=== PATIENT | female | born 1960 | race Caucasian/White ===

== ENCOUNTER → 2016-08-09 | Outpatient (REF) | payer OTHER | LOC: M SFHCPLAZ 12:54 | PROVIDERS: ATTEND Family Medicine | DX: E11.9 Type 2 diabetes mellitus without complications (principal) ==

== ENCOUNTER 2016-09-16 18:30 | Emergency (ER) | payer MEDICAID, OTHER ==
[~2016-09-16] VITALS: Ht 170.2 cm; Wt 81.2 kg
[2016-09-16] MEDS ORDERED: TRAD5TAB (18:43)
[2016-09-16] MEDS ORDERED: GABA-279 (18:43)
[2016-09-16] MEDS ORDERED: AMLO5TAB2 (18:43)
[2016-09-16] MEDS ORDERED: RIZA10TA4 (18:43)
[2016-09-16] MEDS ORDERED: CYCL10TA (18:43)
[2016-09-16] MEDS ORDERED: GLYB5TA (18:43)
[2016-09-16] MEDS ORDERED: LISI-538 (18:43)
[2016-09-16] MEDS ORDERED: AMIT100TA (18:43)
[2016-09-16] MEDS ORDERED: METF1000 (18:43)
[2016-09-16] MEDS ORDERED: OMEP40CA2 (18:43)
[2016-09-16] MEDS ORDERED: LATA5OPD (18:43)
[2016-09-16] MEDS ORDERED: TOPI200T4 (18:43)
[2016-09-16] MEDS ORDERED: KETOROLAC 60 MG/2 ML VIAL (J1885) IM ONE (20:15)
[2016-09-16] MEDS ORDERED: NAPR500T PO (20:44)
[2016-09-16] MEDS ORDERED: MAGNESIUM CITRATE 300 ML BTL PO ONE (20:45)
[2016-09-16 20:57] VITALS: BP 137/74
== END 2016-09-16 20:58 | disposition home or self-care (01) ==
LOC: M ED 19:51
DX: M54.5 Low back pain (principal); K59.00 Constipation, unspecified; E11.9 Type 2 diabetes mellitus without complications; I10 Essential (primary) hypertension; F41.9 Anxiety disorder, unspecified; F33.9 Major depressive disorder, recurrent, unspecified; Z79.899 Other long term (current) drug therapy; Z79.84 Long term (current) use of oral hypoglycemic drugs
CPT/HCPCS: 96372; 99282; J1885

== ENCOUNTER → 2016-11-15 | Outpatient (CLI) | payer OTHER ==
[~2016-11-15] MED LIST: AMIT100TA; AMLO5TAB2; CYCL10TA; GABA-279; GLYB5TA; LATA5OPD; LISI-538; METF1000; NAPR500T PO; OMEP40CA2; RIZA10TA4; TOPI200T4; TRAD5TAB
[2016-11-15 13:09] LABS: BASO % 0.4 % (0.0-1.0); EOS # 0.2 K/mm3 (0.0-0.50); LARGE UNSTAINED CELL # 0.1 K/mm3 (0.0-0.4); LARGE UNSTAINED CELL % 1.2 % (0.0-4.0); LYMPH # 1.4 K/mm3 (1.5-4.5); LYMPH % 17.9 % (24.0-44.0); MEAN CORPUSCULAR HEMOGLOBIN 30.7 pg (27.0-33.0); MEAN CORPUSCULAR HGB CONC 33.9 g/dl (32.0-36.5); MEAN CORPUSCULAR VOLUME 90.6 fl (80.0-96.0); MONO # 0.4 K/mm3 (0.0-0.8); MONO % 5.7 % (0.0-5.0); NEUTROPHILS # 5.6 K/mm3 (1.8-7.7); NEUTROPHILS % 72.6 % (36.0-66.0); PLATELET COUNT, AUTOMATED 294 k/mm3 (150-450); WHITE BLOOD COUNT 7.7 K/mm3 (4.0-10.0)
[2016-11-15 13:45] LABS: ALBUMIN 3.7 GM/DL (3.2-5.2); ALBUMIN/GLOBULIN RATIO 1.19 (1.00-1.93); BILIRUBIN,TOTAL 0.3 MG/DL (0.2-1.0); CALCIUM LEVEL 8.9 MG/DL (8.5-10.1); CREATININE FOR GFR 1.11 MG/DL (0.55-1.02); GLOMERULAR FILTRATION RATE 53.9 (>51); POTASSIUM SERUM 3.9 MEQ/L (3.5-5.1); TOTAL PROTEIN 6.8 GM/DL (6.4-8.2)
== END ==
LOC: M LAB 11:12
PROVIDERS: ATTEND Internal Medicine Cardiovascular Disease
DX: I10 Essential (primary) hypertension (principal); E78.5 Hyperlipidemia, unspecified

== ENCOUNTER 2016-11-17 10:38 | Outpatient (RCR) | payer OTHER ==
[~2016-11-17 10:38] MED LIST changes: -METF1000; +METF10004; -TOPI200T4; +TOPI200T7
== END 2016-11-26 | disposition home or self-care (01) ==
LOC: M PT 10:38
PROVIDERS: ATTEND Physician Assistant Medical
DX: Z51.89 Encounter for other specified aftercare (principal); M54.2 Cervicalgia

== ENCOUNTER → 2016-12-22 | Outpatient (REF) | payer OTHER ==
[2016-12-22 16:46] LABS: CREATININE FOR GFR 1.06 MG/DL (0.55-1.02); GLOMERULAR FILTRATION RATE 56.9 (>51); POTASSIUM SERUM 3.7 MEQ/L (3.5-5.1)
== END ==
LOC: M LABDRAW1 15:59
PROVIDERS: ATTEND Family Medicine
DX: E11.29 Type 2 diabetes mellitus with other diabetic kidney complication (principal)

== ENCOUNTER → 2016-12-29 | Outpatient (REF) ==
--- NOTE | 2016-12-30 03:29 | REP ---
Clinical: Pain and disability. Technique: AP, lateral, coned-down views of the lumbosacral spine. Comparison: 08/26/2011. Findings: Straightening of normal lordosis and moderate multilevel degenerative changes include endplate sclerosis/heterogeneity, marginal spurring and disc space narrowing. Hypertrophic facet changes at the L5-S1 level also appreciated. No acute fracture / compression injury or subluxation. Impression: Straightening of normal lordosis and moderate multilevel degenerative changes. No acute fracture / compression injury. Signed by Ismael Petersen MD 12/30/2016 03:20 A
--- NOTE | 2016-12-30 03:36 | REP ---
Clinical: Pain and disability. Technique: AP and lateral views of the cervical spine. Correlation: MRI dated 03/23/2012 Findings: Alignment and lordosis maintained. Vertebral bodies are intact without acute fracture / compression injury or subluxation. Advanced multilevel degenerative disc osteophyte complexes noted and include marginal osteophytes, endplate sclerosis and disc space narrowing. Impression: Advanced multilevel degenerative disc osteophyte complexes. Signed by Ismael Petersen MD 12/30/2016 03:28 A
== END ==
LOC: M SMT 13:13
PROVIDERS: ATTEND Internal Medicine
DX: M25.78 Osteophyte, vertebrae (principal); M51.35 Other intervertebral disc degeneration, thoracolumbar region; M51.36 Other intervertebral disc degeneration, lumbar region; M54.5 Low back pain

== ENCOUNTER → 2017-02-11 | Outpatient (CLI) | payer OTHER ==
--- NOTE | 2017-02-11 13:29 | REPMRS ---
Patient History The patient states she has not had a clinical breast exam in over a year. Patient is postmenopausal. Family history of unknown cancer in paternal grandfather at age 50 or over and unknown cancer in maternal grandfather at age 50 or over. Benign stereotactic core biopsy of the left breast, 2001. Took hormonal contraceptives for 1 year. Digital Woman Screen Mammo: February 11, 2017 - Exam #: [id number] Bilateral CC and MLO view(s) were taken. Technologist: Alcira Shin, Technologist Prior study comparison: December 10, 2015, bilateral digital mammo screening bilat, performed at [facility]. December 03, 2014, bilateral digital mammo screening bilat, performed at [facility]. November 21, 2013, bilateral bilat screen digital mammo, performed at [facility] ([facility]). FINDINGS: There are scattered fibroglandular densities. There has been no change in the appearance of the mammogram from the prior studies. There is a mild amount of scattered fibroglandular density which is fairly symmetric. There is no interval development of dominant mass, architectural distortion, or clustered microcalcification suggestive of malignancy. ASSESSMENT: BI-RADS/ACR category 1 mammogram. Negative. Recommendation Routine screening mammogram in 1 year (for women over age 40). This mammogram was interpreted with the aid of an FDA-approved computer-aided dectection system. Electronically Signed By: Chad Hi MD 02/11/17 [id number]
== END ==
LOC: M WHC 12:26
PROVIDERS: ATTEND Family Medicine
DX: Z12.31 Encounter for screening mammogram for malignant neoplasm of breast (principal)

== ENCOUNTER → 2017-05-10 | Outpatient (REF) | payer OTHER | LOC: M SFHCPLAZ 15:22 | PROVIDERS: ATTEND Family Medicine | DX: E11.9 Type 2 diabetes mellitus without complications (principal) ==

== ENCOUNTER → 2017-05-11 | Outpatient (CLI) | payer OTHER ==
--- NOTE | 2017-05-11 12:38 | REP ---
Left hand four views: There are no comparisons. There is mild demineralization. There is joint space narrowing of the PIP and DIP articulations and at the thumb IP articulation and thumb MCP articulation. This is consistent with early osteoarthritic change. The MCP articulations are unremarkable otherwise. There is no fracture or dislocation. There are no unusual calcifications or foreign bodies. Impression: Mild osteoarthritic findings as described. Signed by Luisito Barajas MD 05/11/2017 12:30 P
== END ==
LOC: M RAD 10:23
PROVIDERS: ATTEND Family Medicine
DX: M19.042 Primary osteoarthritis, left hand (principal)

== ENCOUNTER → 2017-06-16 | Outpatient (REF) | payer OTHER | LOC: M SFHCPLAZ 13:44 | DX: E11.9 Type 2 diabetes mellitus without complications (principal) ==

== ENCOUNTER → 2017-06-27 | Outpatient (CLI) | payer OTHER ==
[2017-06-27 11:22] LABS: ESTIMATED AVERAGE GLUCOSE 128 MG/DL (60-110); HEMOGLOBIN A1c 6.1 %
== END ==
LOC: M LAB 10:22
DX: E11.9 Type 2 diabetes mellitus without complications (principal)
CPT/HCPCS: 83036

== ENCOUNTER → 2017-08-11 | Outpatient (CLI) | payer OTHER ==
[2017-08-11 11:14] LABS: HEMATOCRIT 39.8 % (36.0-47.0); HEMOGLOBIN 12.9 g/dl (12.0-16.0); MEAN CORPUSCULAR HEMOGLOBIN 29.7 pg (27.0-33.0); MEAN CORPUSCULAR HGB CONC 32.4 g/dl (32.0-36.5); MEAN CORPUSCULAR VOLUME 91.5 fl (80.0-96.0); PLATELET COUNT, AUTOMATED 312 10^3/uL (150-450); RED BLOOD COUNT 4.35 10^6/uL (4.00-5.40); RED CELL DISTRIBUTION WIDTH 13.1 % (11.5-14.5); WHITE BLOOD COUNT 8.7 10^3/uL (4.0-10.0)
== END ==
LOC: M LAB 10:52
DX: M19.011 Primary osteoarthritis, right shoulder (principal)
CPT/HCPCS: 73030

== ENCOUNTER → 2018-01-10 | Outpatient (REF) | payer OTHER | LOC: M SFHCPLAZ 07:52 | DX: E11.9 Type 2 diabetes mellitus without complications (principal); Z53.9 Procedure and treatment not carried out, unspecified reason ==

== ENCOUNTER → 2018-02-13 | Outpatient (CLI) | payer OTHER ==
[2018-02-13 15:11] LABS: ESTIMATED AVERAGE GLUCOSE 189 MG/DL (60-110); HEMOGLOBIN A1c 8.2 %
== END ==
LOC: M LAB 12:45
DX: E11.9 Type 2 diabetes mellitus without complications (principal)
CPT/HCPCS: 83036

== ENCOUNTER → 2018-03-06 | Outpatient (CLI) | payer OTHER | LOC: M RAD 10:51 | DX: Z12.31 Encounter for screening mammogram for malignant neoplasm of breast (principal) | CPT/HCPCS: 77067 ==

== ENCOUNTER 2018-03-22 14:49 | Emergency (ER) | payer OTHER ==
[2018-03-22] MEDS: METHOCARBAMOL 750 MG TAB PO (16:15)
[2018-03-22] MEDS: NORCO, ANEXSIA 5/325MG TABLET (HYDROcodone/ACETAMINOPHEN) PO (16:16)
[2018-03-22] MEDS: MORPHINE 10 MG/ML 1ML VIAL (J2270) IM (17:14)
== END 2018-03-22 20:57 | disposition home or self-care (01) ==
LOC: M ED 14:49
DX: M51.36 Other intervertebral disc degeneration, lumbar region (principal); M51.37 Other intervertebral disc degeneration, lumbosacral region; M51.27 Other intervertebral disc displacement, lumbosacral region; M48.061 Spinal stenosis, lumbar region without neurogenic claudication; M25.78 Osteophyte, vertebrae; E11.9 Type 2 diabetes mellitus without complications; I10 Essential (primary) hypertension; E78.5 Hyperlipidemia, unspecified; G89.29 Other chronic pain; M54.9 Dorsalgia, unspecified; F41.9 Anxiety disorder, unspecified; F32.9 Major depressive disorder, single episode, unspecified; Z79.82 Long term (current) use of aspirin; Z79.84 Long term (current) use of oral hypoglycemic drugs; Z79.899 Other long term (current) drug therapy
CPT/HCPCS: J2270

== ENCOUNTER → 2018-06-12 | Outpatient (REF) | payer OTHER ==
[~2018-06-12] MED LIST changes: -AMLO5TAB2; +AMLO5TAB6; +ASPI-161 PO; +ATOR40TA75 PO; +CALC500T36 PO; +FIBE625T PO; +FLON1SPR NARES; +GABA-1171; -GABA-279; +MULTCAP PO; +NAPR-50 PO; -NAPR500T PO; +PERC5TAB12 PO; +ROBA500T PO; +SIME180C PO; +VITA-112 PO; +VITA100072 PO; +ZYRTTAB8 PO
== END ==
LOC: M SFHCPLAZ 05:32
PROVIDERS: ATTEND Family Medicine
DX: Z53.9 Procedure and treatment not carried out, unspecified reason (principal); E11.9 Type 2 diabetes mellitus without complications

== ENCOUNTER → 2018-06-27 | Outpatient (REF) | payer OTHER | LOC: M SFHCPLAZ 14:52 | PROVIDERS: ATTEND Family Medicine | DX: B35.2 Tinea manuum (principal) ==

== ENCOUNTER → 2018-09-21 | Outpatient (CLI) | payer OTHER ==
[~2018-09-21] MED LIST changes: +CALC12504 PO; -CALC500T36 PO; +LATA0.0013; -LATA5OPD; -NAPR-50 PO; +NAPR-837 PO; +VITA100018 PO; -VITA100072 PO
--- NOTE | 2018-09-21 14:01 | REP ---
BILATERAL AP AND LATERAL KNEE, FOUR VIEWS: HISTORY: Arthritis. RIGHT KNEE: There is no acute fracture or dislocation. There is minimal narrowing of the knee joint space. Osteophytes are present on the patella. IMPRESSION: Degenerative change as described above. LEFT KNEE: There is no acute fracture or dislocation. There is minimal narrowing of the knee joint space. Osteophytes are present on the patella. IMPRESSION: Degenerative change as described above. Electronically Signed by Vinod Szymanski MD 09/21/2018 02:12 P
== END ==
LOC: M RAD 13:03
PROVIDERS: ATTEND Student in an Organized Health Care Education/Training Program
DX: M17.0 Bilateral primary osteoarthritis of knee (principal); M25.762 Osteophyte, left knee; M25.761 Osteophyte, right knee

== ENCOUNTER → 2018-11-03 | Outpatient (CLI) | payer OTHER ==
[2018-11-03 13:28] LABS: HEMOGLOBIN A1c 6.7 %
== END ==
LOC: M LAB 10:10
PROVIDERS: ATTEND Student in an Organized Health Care Education/Training Program
DX: E11.9 Type 2 diabetes mellitus without complications (principal)

== ENCOUNTER → 2018-12-05 | Outpatient (REF) | payer OTHER ==
[~2018-12-05] MED LIST changes: -CALC12504 PO; +CALC500T61 PO
[2018-12-05 16:49] LABS: BASO # 0.1 10^3/uL (0.0-0.2); BASO % 0.6 % (0.0-1.0); EOS # 0.3 10^3/uL (0.0-0.50); EOS % 3.3 % (0.0-3.0); HEMATOCRIT 42.2 % (36.0-47.0); HEMOGLOBIN 13.5 g/dl (12.0-15.5); LYMPH # 1.8 10^3/uL (1.5-4.5); LYMPH % 18.7 % (24.0-44.0); MEAN CORPUSCULAR HEMOGLOBIN 30.7 pg (27.0-33.0); MEAN CORPUSCULAR VOLUME 95.9 fl (80.0-96.0); MONO # 0.6 10^3/uL (0.0-0.8); MONO % 6.1 % (0.0-5.0); NEUTROPHILS # 6.6 10^3/uL (1.8-7.7); NEUTROPHILS % 69.9 % (36.0-66.0); PLATELET COUNT, AUTOMATED 289 10^3/uL (150-450); WHITE BLOOD COUNT 9.5 10^3/uL (4.0-10.0)
== END ==
LOC: M SFHCPLAZ 15:02
PROVIDERS: ATTEND Family Medicine
DX: L30.8 Other specified dermatitis (principal)

== ENCOUNTER → 2019-01-24 | Outpatient (REF) | payer OTHER | LOC: M SFHCPLAZ 17:12 | PROVIDERS: ATTEND Dermatology | DX: L90.0 Lichen sclerosus et atrophicus (principal); D23.39 Other benign neoplasm of skin of other parts of face ==

== ENCOUNTER → 2019-02-07 | Outpatient (REF) | payer OTHER | LOC: M SFHCPLAZ 10:59 | PROVIDERS: ATTEND Family Medicine | DX: Z79.4 Long term (current) use of insulin (principal) ==

== ENCOUNTER → 2019-03-08 | Outpatient (CLI) | payer OTHER ==
[~2019-03-08] MED LIST changes: -OMEP40CA2; +OMEP40CA97; -RIZA10TA4; +RIZA10TA58
[2019-03-08 14:57] LABS: HEMOGLOBIN A1c 6.8 %
== END ==
LOC: M LAB 13:52
PROVIDERS: ATTEND Student in an Organized Health Care Education/Training Program
DX: Z79.4 Long term (current) use of insulin (principal)

== ENCOUNTER 2019-05-08 09:42 | Day surgery (SDC) | payer OTHER ==
[~2019-05-08] VITALS: Ht 170.2 cm; Wt 75.7 kg
[~2019-05-08 09:42] MED LIST changes: -AMIT100TA; +AMIT100TA PO; -AMLO5TAB6; +AMLO5TAB6 PO; +BASA100I SC; +HYDR-643 PO; -LISI-538; +LISI-538 PO; +MELO15TA28 PO; +METF500T13 PO; +NEUR600T PO; +NS 1,000 ML IV ONE; -OMEP40CA97; +OMEP40CA97 PO; +TIZA2TAB4 PO; +TOPA200T7 PO; +TRUL0.5I SC; +XALA0.007 OU
[2019-05-08] MEDS ORDERED: fentaNYL 100 MCG/2 ML INJECTION (J3010) As Ordered ONE (10:45)
[2019-05-08] MEDS ORDERED: PROPOFOL 200 MG/20 ML VIAL As Ordered ONE (10:46)
[2019-05-08] MEDS ORDERED: LIDOCAINE 2% INJ 100 MG/5 ML SDV (FOR ANES.) As Ordered ONE (10:46)
--- NOTE | 2019-05-08 11:28 | ROOR ---
Patient Name: Maria Fernanda Underwood Procedure Date: 05/08/2019 11:07 AM Date of : 1960 Age: 59 Room: [facility] Gender: Female Note Status: Finalized Procedure: Upper GI endoscopy Indications: Surveillance for malignancy due to personal history of Becerra's esophagus Providers: Bill VALDEZ MD Referring MD: LISA BRUCE MD Requesting Provider: Medicines: Monitored Anesthesia Care Complications: No immediate complications. Procedure: Pre-Anesthesia Assessment: - The heart rate, respiratory rate, oxygen saturations, blood pressure, adequacy of pulmonary ventilation, and response to care were monitored throughout the procedure. The Endoscope was introduced through the mouth, and advanced to the second part of duodenum. The upper GI endoscopy was accomplished without difficulty. The patient tolerated the procedure well. Findings: The Z-line was variable and was found 36 cm from the incisors. This was biopsied with a cold forceps for histology. The exam of the esophagus was otherwise normal. Small Hiatal Hernia. The entire examined stomach was normal. A single 4 mm semi-sessile polyp was found in the duodenal bulb. The polyp was removed with a jumbo cold forceps. Resection and retrieval were complete. The exam of the duodenum was otherwise normal. Impression: - Z-line variable, 36 cm from the incisors. Biopsied. - Small Hiatal Hernia. - Normal stomach. - A single duodenal polyp. Resected and retrieved. Recommendation: - Await pathology results. - Continue present medications. - Repeat upper endoscopy in 3 years for surveillance. Bill Valdez MD Bill VALDEZ MD 05/08/2019 11:27:38 AM Electronically signed by Bill VALDEZ MD Number of Addenda: 0 Note Initiated On: 05/08/2019 11:07 AM Estimated Blood Loss: Estimated blood loss: none.
--- NOTE | 2019-05-08 11:50 | ROOR ---
Patient Name: Maria Fernanda Underwood Procedure Date: 05/08/2019 11:08 AM Date of : 1960 Age: 59 Room: [facility] Gender: Female Note Status: Finalized Procedure: Colonoscopy Indications: Screening for colorectal malignant neoplasm Providers: Bill CORTES MD Referring MD: LISA BRUCE MD Requesting Provider: Medicines: Monitored Anesthesia Care Complications: No immediate complications. Procedure: Pre-Anesthesia Assessment: - The heart rate, respiratory rate, oxygen saturations, blood pressure, adequacy of pulmonary ventilation, and response to care were monitored throughout the procedure. The Colonoscope was introduced through the anus and advanced to the terminal ileum, with identification of the appendiceal orifice and IC valve. The colonoscopy was somewhat difficult due to unsatisfactory bowel prep. Successful completion of the procedure was aided by lavage. The patient tolerated the procedure well. The quality of the bowel preparation was unsatisfactory. Findings: The perianal and digital rectal examinations were normal. The colon is grossly normal without large tumors or obstructing lesions. Unable to perform adequate detail examination. Small lesions may have been missed. Impression: - Preparation of the colon was unsatisfactory. - The colon is grossly normal without large tumors or obstructing lesions. Unable to perform adequate detail examination. Small lesions may have been missed. - No specimens collected. Recommendation: - Repeat colonoscopy in 2 years because the bowel preparation was suboptimal. Bill Cortes MD Bill CORTES MD 05/08/2019 11:50:32 AM Electronically signed by Bill CORTES MD Number of Addenda: 0 Note Initiated On: 05/08/2019 11:08 AM Estimated Blood Loss: Estimated blood loss: none.
[2019-05-08 12:10] VITALS: BP 142/65
== END 2019-05-08 15:15 | disposition home or self-care (01) ==
LOC: M OPP 09:42
PROVIDERS: ATTEND Internal Medicine Gastroenterology
DX: D3A.010 Benign carcinoid tumor of the duodenum (principal); Z12.11 Encounter for screening for malignant neoplasm of colon; K22.8 Other specified diseases of esophagus; K22.70 Barrett's esophagus without dysplasia; K31.7 Polyp of stomach and duodenum; K44.9 Diaphragmatic hernia without obstruction or gangrene; G47.30 Sleep apnea, unspecified; E11.9 Type 2 diabetes mellitus without complications; Z79.82 Long term (current) use of aspirin; Z79.84 Long term (current) use of oral hypoglycemic drugs; Z79.899 Other long term (current) drug therapy; Z88.5 Allergy status to narcotic agent
CPT/HCPCS: 43239; 45378; 88305; J3010

== ENCOUNTER → 2019-06-04 | Outpatient (CLI) | payer OTHER ==
[~2019-06-04] MED LIST changes: -NS 1,000 ML IV ONE
--- NOTE | 2019-06-04 12:01 | REPMRS ---
Patient History The patient states she has not had a clinical breast exam in over a year. Family history of unknown cancer at age 50 or over in paternal grandfather, unknown cancer at age 50 or over in maternal grandfather. Benign stereotactic core biopsy of the left breast, 2001. Took hormonal contraceptives for 1 year. Digital Woman Screen Mammo: June 04, 2019 - Exam #: [id number] Bilateral CC and MLO view(s) were taken. Technologist: Ange Leach, Technologist Prior study comparison: March 06, 2018, bilateral digital mammo screening bilat, performed at [facility]. February 11, 2017, digital woman screen mammo performed at [facility]. December 10, 2015, bilateral digital mammo screening bilat, performed at [facility]. FINDINGS: There are scattered fibroglandular densities. There is a stable nodular opacity in the medial aspect of the left breast superiorly which is unchanged from multiple prior studies. There has been no change in the appearance of the mammogram from the prior studies. There is a mild amount of scattered fibroglandular density which is fairly symmetric. There is no interval development of dominant mass, architectural distortion, or grouped microcalcification suggestive of malignancy. 3-D tomosynthesis shows no additional findings. Assessment: BI-RADS/ACR category 2 mammogram. Benign Findings. Recommendation Routine screening mammogram of both breasts in 1 year (for women over age 40). This patient's Lifetime Breast Cancer Risk is estimated at 6.1 %. This mammogram was interpreted with the aid of an FDA-approved computer-aided dectection system. Electronically Signed By: Chad Hi MD 06/04/19 1200
== END ==
LOC: M WHC 10:13
PROVIDERS: ATTEND Student in an Organized Health Care Education/Training Program
DX: Z12.31 Encounter for screening mammogram for malignant neoplasm of breast (principal)

== ENCOUNTER → 2019-06-29 | Outpatient (REF) | payer OTHER | LOC: M SFHCPLAZ 11:59 | PROVIDERS: ATTEND Family Medicine | DX: E11.9 Type 2 diabetes mellitus without complications (principal) ==

== ENCOUNTER → 2019-07-12 | Outpatient (CLI) | payer OTHER ==
[2019-07-12 14:12] LABS: HEMOGLOBIN A1c 5.2 %
== END ==
LOC: M LAB 10:50
PROVIDERS: ATTEND Student in an Organized Health Care Education/Training Program
DX: E11.9 Type 2 diabetes mellitus without complications (principal)

== ENCOUNTER → 2019-10-20 | Outpatient (CLI) | payer OTHER ==
[~2019-10-20] MED LIST changes: +CYCL-707; -CYCL10TA; -TIZA2TAB4 PO; +TIZA2TAB6 PO; +VITAD1000T PO
== END ==
LOC: M LABSMTC 09:50
PROVIDERS: ATTEND Anesthesiology
DX: Z01.812 Encounter for preprocedural laboratory examination (principal); Z11.59 Encounter for screening for other viral diseases

== ENCOUNTER 2019-10-23 09:18 | Day surgery (SDC) | payer OTHER ==
[~2019-10-23] VITALS: Ht 170.2 cm; Wt 76.2 kg
[~2019-10-23 09:18] MED LIST changes: +NS 1,000 ML IV ONE
[2019-10-23] MEDS ORDERED: fentaNYL 100 MCG/2 ML INJECTION (J3010) As Ordered ONE (12:01)
[2019-10-23] MEDS ORDERED: LIDOCAINE 2% 100MG/5ML SDV (FOR ANES.) As Ordered ONE (12:01)
[2019-10-23] MEDS ORDERED: propofoL 200 MG/20 ML VIAL As Ordered ONE (12:01)
--- NOTE | 2019-10-23 13:48 | ROOR ---
Patient Name: Maria Fernanda Underwood Procedure Date: 10/23/2019 1:17 PM Date of : 1960 Age: 59 Room: [facility] Gender: Female Note Status: Finalized Procedure: Upper GI endoscopy Indications: Surveillance procedure- s/p removal of a tiny carcinoid in 1st portion duodenum 2018. This is follow up to assure no recurrence, Pt with known short segment Becerra's esophagus Providers: Bill VALDEZ MD Referring MD: Arnold Dawson Do Requesting Provider: Medicines: Monitored Anesthesia Care Complications: No immediate complications. Procedure: Pre-Anesthesia Assessment: - The heart rate, respiratory rate, oxygen saturations, blood pressure, adequacy of pulmonary ventilation, and response to care were monitored throughout the procedure. The Endoscope was introduced through the mouth, and advanced to the second part of duodenum. The upper GI endoscopy was accomplished without difficulty. The patient tolerated the procedure well. Findings: Buckner-colored mucosa was present in proximal esophagus suggestive of an inlet patch/ectopic gastric mucosa. Biopsies were taken with a cold forceps for histology. Becerra's esophagus was present at the gastroesophageal junction. The maximum longitudinal extent of these mucosal changes was 1 cm in length. Mucosa was biopsied with a cold forceps for histology. Small Hiatal Hernia. The entire examined stomach was normal. The examined duodenum was normal. There is no endoscopic evidence of nodule in the first portion of the duodenum. Impression: - Prominent inlet patch in proximal esophagus. Biopsied. - Variable Z line consistent with short segment Becerra's esophagus. Biopsied. - Small Hiatal Hernia. - Normal stomach. - Normal examined duodenum. (no evidence of any nodule/carcinoid in duodenum) Recommendation: - Telephone endoscopist for pathology results in 2 weeks. - Repeat upper endoscopy in 3 years for surveillance of Becerra's esophagus. Bill Valdez MD Bill VALDEZ MD 10/23/2019 1:47:49 PM Electronically signed by Bill VALDEZ MD Number of Addenda: 0 Note Initiated On: 10/23/2019 1:17 PM Estimated Blood Loss: Estimated blood loss: none.
[2019-10-23 14:11] VITALS: BP 179/79
== END 2019-10-23 15:07 | disposition home or self-care (01) ==
LOC: M OPP 09:18
PROVIDERS: ATTEND Internal Medicine Gastroenterology
DX: K22.70 Barrett's esophagus without dysplasia (principal); E11.9 Type 2 diabetes mellitus without complications; Z79.82 Long term (current) use of aspirin; Z79.84 Long term (current) use of oral hypoglycemic drugs; Z79.899 Other long term (current) drug therapy; Z88.5 Allergy status to narcotic agent; Z85.020 Personal history of malignant carcinoid tumor of stomach; Z08 Encounter for follow-up examination after completed treatment for malignant neoplasm
CPT/HCPCS: 43239; 88305; J3010

== ENCOUNTER 2020-01-25 16:02 | Emergency (ER) | payer OTHER ==
[~2020-01-25] VITALS: Ht 170.2 cm; Wt 74.4 kg
[2020-01-25 16:02] VITALS: BP 130/72
[~2020-01-25 16:02] MED LIST changes: +AMLO1TAB24 PO; -AMLO5TAB6 PO; +D31000TA2 PO; -NS 1,000 ML IV ONE; -VITAD1000T PO
--- NOTE | 2020-02-26 07:48 | REP ---
LEFT ANKLE SERIES: 4-VIEWS HISTORY: Trauma. FINDINGS: Four views of the left ankle demonstrate intact ankle mortise. No fracture is seen. There is old fragmented spurring at the medial malleolus and some osteoarthritis is seen at the ankle. There is plantar calcaneal spurring. Bones, joints, and soft tissues are otherwise unremarkable. IMPRESSION: Old fragmented osteoarthritic spurring at the medial malleolus. No acute bony abnormality. MTDD
--- NOTE | 2020-02-26 07:49 | REP ---
LEFT FOOT SERIES: 4-VIEWS HISTORY: Trauma. FINDINGS: Four views of the left foot demonstrate mild diffuse osteopenia. There is plantar heel spurring. No fracture is seen. IMPRESSION: Diffuse osteopenia and plantar heel spur. No fracture noted. MTDD
== END 2020-01-25 17:29 | disposition home or self-care (01) ==
LOC: M ED 16:02
DX: S93.602A Unspecified sprain of left foot, initial encounter (principal); X50.1XXA Overexertion from prolonged static or awkward postures, initial encounter; W19.XXXA Unspecified fall, initial encounter; Y92.098 Other place in other non-institutional residence as the place of occurrence of the external cause; I10 Essential (primary) hypertension; K21.9 Gastro-esophageal reflux disease without esophagitis; F32.9 Major depressive disorder, single episode, unspecified; Z88.5 Allergy status to narcotic agent; Z79.899 Other long term (current) drug therapy; Z79.82 Long term (current) use of aspirin; Z79.4 Long term (current) use of insulin

== ENCOUNTER 2020-01-26 21:11 | Emergency (ER) | payer OTHER ==
[~2020-01-26] VITALS: Ht 170.2 cm; Wt 74.6 kg
[2020-01-26 21:41] VITALS: BP 158/86
== END 2020-01-27 00:30 | disposition home or self-care (01) ==
LOC: M ED 21:11
DX: E11.649 Type 2 diabetes mellitus with hypoglycemia without coma (principal); I10 Essential (primary) hypertension; Z88.5 Allergy status to narcotic agent; Z79.899 Other long term (current) drug therapy; Z79.82 Long term (current) use of aspirin; Z79.4 Long term (current) use of insulin

== ENCOUNTER 2020-04-17 00:12 | Emergency (ER) | payer OTHER ==
[~2020-04-17] VITALS: Ht 188 cm; Wt 74.7 kg
[2020-04-17] MEDS ORDERED: ACETAMINOPHEN 325 MG TAB PO ONE (01:00)
--- NOTE | 2020-04-17 01:24 | REPVR ---
PROCEDURE INFORMATION: Exam: XR Chest, 1 View Exam date and time: 04/17/2020 1:05 AM Age: 60 years old Clinical indication: Chest pain TECHNIQUE: Imaging protocol: XR of the chest Views: 1 view. COMPARISON: CR Chest, 2 view PA, Lat 2015-08-14 15:21 FINDINGS: Lungs: Unremarkable. No consolidation. Pleural space: Unremarkable. No pleural effusion. No pneumothorax. Heart/Mediastinum: Unremarkable. No cardiomegaly. Bones/joints: Unremarkable. IMPRESSION: No acute findings. Electronically signed by: Bill Kiser On 04/17/2020 01:24:41 AM
[2020-04-17 01:25] LABS: BASO % 0.3 % (0.0-1.0); EOS # 0.4 10^3/uL (0.0-0.5); EOS % 5.8 % (0.0-3.0); HEMATOCRIT 38.3 % (36.0-47.0); HEMOGLOBIN 11.9 g/dl (12.0-15.5); LYMPH # 1.2 10^3/uL (1.5-5.0); LYMPH % 17.5 % (24.0-44.0); MEAN CORPUSCULAR HEMOGLOBIN 29.3 pg (27.0-33.0); MEAN CORPUSCULAR HGB CONC 31.1 g/dl (32.0-36.5); MEAN CORPUSCULAR VOLUME 94.3 fl (80.0-96.0); MONO # 0.7 10^3/uL (0.0-0.8); MONO % 10.2 % (0.0-5.0); NEUTROPHILS # 4.6 10^3/uL (1.5-8.5); NEUTROPHILS % 65.8 % (36.0-66.0); PLATELET COUNT, AUTOMATED 206 10^3/uL (150-450); RED BLOOD COUNT 4.06 10^6/uL (4.00-5.40)
[2020-04-17 01:53] LABS: BLOOD UREA NITROGEN 44 MG/DL (7-18); CALCIUM LEVEL 8.3 MG/DL (8.8-10.2); CARBON DIOXIDE LEVEL 22 MEQ/L (21-32); CHLORIDE LEVEL 112 MEQ/L (98-107); CK-MB VALUE MASS < 1.0 NG/ML (<3.6); CPK CREATINE PHOSPHOKINASE 84 U/L (26-192); CREATININE FOR GFR 1.53 MG/DL (0.55-1.30); GLOMERULAR FILTRATION RATE 36.7 (>45); GLUCOSE, FASTING 160 MG/DL (70-100); MB/CK RELATIVE INDEX 1.19 (< OR =4); POTASSIUM SERUM 4.2 MEQ/L (3.5-5.1); SODIUM LEVEL 142 MEQ/L (136-145); TROPONIN I < 0.02 NG/ML (< 0.10)
[2020-04-17] MEDS ORDERED: cefTRIAXone SOD 2 GM in D5W MINI-BAG PLUS 50 ML IV ONE (03:45)
[2020-04-17 05:15] VITALS: BP 131/67
[2020-04-17] MEDS ORDERED: KEFL500C17 PO (05:15)
[2020-04-17 05:19] LABS: CK-MB VALUE MASS < 1.0 NG/ML (<3.6); CPK CREATINE PHOSPHOKINASE 209 U/L (26-192); MB/CK RELATIVE INDEX 0.48 (< OR =4); TROPONIN I < 0.02 NG/ML (< 0.10)
--- NOTE | 2020-04-17 14:29 | ECGEPIP ---
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
== END 2020-04-17 05:31 | disposition home or self-care (01) ==
LOC: M ED 00:12
DX: R07.9 Chest pain, unspecified (principal); N76.2 Acute vulvitis; R10.2 Pelvic and perineal pain; E11.9 Type 2 diabetes mellitus without complications; I10 Essential (primary) hypertension; E78.5 Hyperlipidemia, unspecified; Z88.5 Allergy status to narcotic agent; Z79.899 Other long term (current) drug therapy; Z79.82 Long term (current) use of aspirin; Z79.4 Long term (current) use of insulin
CPT/HCPCS: 71045; 80048; 82550; 82553; 83605; 85025; 93005; 96365; 96366; 99285; J0696

== ENCOUNTER → 2020-06-06 | Outpatient (CLI) | payer OTHER ==
[~2020-06-06] MED LIST changes: +KEFL500C17 PO; +TIZA1TAB12 PO; -TIZA2TAB6 PO
[2020-06-06 13:16] LABS: HEMOGLOBIN A1c 5.8 %
== END ==
LOC: M LAB 10:30
PROVIDERS: ATTEND Family Medicine
DX: E11.65 Type 2 diabetes mellitus with hyperglycemia (principal)

== ENCOUNTER → 2020-06-09 | Outpatient (REF) | payer OTHER | LOC: M SFHCPLAZ 10:21 | PROVIDERS: ATTEND Family Medicine | DX: I10 Essential (primary) hypertension (principal) ==

== ENCOUNTER → 2020-06-11 | Outpatient (CLI) | payer OTHER ==
[2020-06-11 12:47] LABS: HEMATOCRIT 36.3 % (36.0-47.0); HEMOGLOBIN 11.3 g/dl (12.0-15.5); MEAN CORPUSCULAR HEMOGLOBIN 29.8 pg (27.0-33.0); MEAN CORPUSCULAR HGB CONC 31.1 g/dl (32.0-36.5); MEAN CORPUSCULAR VOLUME 95.8 fl (80.0-96.0); PLATELET COUNT, AUTOMATED 282 10^3/uL (150-450); RED BLOOD COUNT 3.79 10^6/uL (4.00-5.40)
[2020-06-11 13:31] LABS: ALBUMIN 3.6 GM/DL (3.2-5.2); ALT/SGPT 53 U/L (12-78); BILIRUBIN,TOTAL 0.2 MG/DL (0.2-1.0); BLOOD UREA NITROGEN 20 MG/DL (7-18); CALCIUM LEVEL 8.5 MG/DL (8.8-10.2); CARBON DIOXIDE LEVEL 25 MEQ/L (21-32); CHLORIDE LEVEL 113 MEQ/L (98-107); CREATININE FOR GFR 0.89 MG/DL (0.55-1.30); GLOMERULAR FILTRATION RATE > 60.0 (>45); GLUCOSE, FASTING 122 MG/DL (70-100); POTASSIUM SERUM 3.9 MEQ/L (3.5-5.1); SODIUM LEVEL 145 MEQ/L (136-145); TOTAL PROTEIN 6.6 GM/DL (6.4-8.2)
== END ==
LOC: M LAB 10:17
PROVIDERS: ATTEND Student in an Organized Health Care Education/Training Program
DX: I10 Essential (primary) hypertension (principal)

== ENCOUNTER → 2020-06-11 | Outpatient (REF) | payer OTHER ==
[2020-06-11 15:14] LABS: CREATININE, URINE 49.6 MG/DL; MALB URINE SIEMENS 47.7 MG/L; MAU/CREAT RATIO 96.1 MCG/MG (0.0-30.0)
== END ==
LOC: M SFHCPLAZ 14:04
PROVIDERS: ATTEND Student in an Organized Health Care Education/Training Program
DX: E11.65 Type 2 diabetes mellitus with hyperglycemia (principal)

== ENCOUNTER 2020-07-21 13:58 | Emergency (ER) | payer OTHER ==
[~2020-07-21] VITALS: Ht 170.2 cm; Wt 82.1 kg
[~2020-07-21 13:58] MED LIST changes: -GLYB5TA; +GLYB5TAB6; -LISI-538 PO; +LISI20TA33 PO
--- OUTSIDE RECORDS SUMMARY | 2020-07-21 14:04 | CCD | Continuity of Care Document ---
Author Author Maria Fernanda KOHLER P.A.-C. Organization Unknown Address [address] [place] [address] Phone [phone] Care Team Providers Care Blanket Inspector Name Role Phone Zara Dawsonyogi Herndon AUTM [phone] Problems Active Problems Provider Date Obstructive sleep apnea syndrome Arnie Nicole M.D. Onset: 01/31/2014 Restless legs Arnie Nicole M.D. Onset: 01/31/2014 Insomnia Arnie Nicole M.D. Onset: 01/31/2014 Migraine without aura Arnie Nicole M.D. Onset: 01/31/2014 Tension-type headache Arnie Nicole M.D. Onset: 01/31/2014 Ulnar neuropathy Arnie Nicole M.D. Onset: 01/31/2014 Social History Type Date Description Comments Sex Unknown ETOH Use Denies alcohol use Tobacco Use Start: Unknown Patient has never smoked Recreational Drug Use Never Used Drugs Allergies, Adverse Reactions, Alerts Active Allergies Reaction Severity Comments Date Morphine severe vomiting 05/17/2018 Inactive Allergies NKDA 01/31/2014 Medications Active Medications SIG Qnty Indications Ordering Provide r Date Rizatriptan Benzoate 10mg Tablets Dispers Take One Tablet By Mouth AT Onset Of Headache May Repeat Once In Two Hours 9tabs G43.009 Arnie Nicole M.D. 02/11/2020 Cpap Mask And Supplies tejas, g47.33 1units Arnie Nicole M.D. 09/05/2019 Hydroxyzine HCL 10mg Tablets Take One Tablet By Mouth Twice Daily as Needed 60tabs F41.1 Hector helton M.D. 02/22/2017 Topiramate 200mg Tablets Take One Tablet By Mouth @11PM 30tabs Arnie Nicole M.D. 02/21/2013 Amitriptyline HCL 100mg Tablets Take One Tablet By Mouth @11PM 30tabs Arnie Nicole M.D. 3 Drisdol [id number] Capsules one capsule once a week 5caps Arnie Nicole M.D. 09/23/2011 Vitamin B12 1000mcg Tablets po q day 30tabs Arnie Nicole M.D. 09/23/2011 Immunizations Description No Information Available Vital Signs Date Vital Result Comment 11/20/2018 7:01am BP Systolic 130 mmHg BP Diastolic 80 mmHg Heart Rate 76 /min Respiratory Rate 16 /min 05/17/2018 6:10am BP Systolic 120 mmHg BP Diastolic 80 mmHg Heart Rate 76 /min Respiratory Rate 16 /min Results Description No Information Available Procedures Description No Information Available Medical Devices Description No Information Available Encounters Type Date Location Provider Dx Diagnosis Office Visit 04/22/2020 2:45p Main office - [place] Diane shoemaker P.A.-C. G43.009 Migraine w/o aura, not intractable, w/o status migrainosus M54.2 Cervicalgia G25.2 Other specified forms of orly mor M54.5 Low back pain G25.81 Restless legs syndrome G47.33 Obstructive sleep apnea (zach lt) (pediatric) F41.1 Generalized anxiety disorder Office Visit 12/06/2019 11:15a Main office - [place] Diane shoemaker P.A.-C. G43.009 Migraine w/o aura, not intractable, w/o status migrainosus M54.2 Cervicalgia M54.5 Low back pain G25.2 Other specified forms of orly mor G25.81 Restless legs syndrome G47.33 Obstructive sleep apnea (zach lt) (pediatric) F41.1 Generalized anxiety disorder Assessments Date Code Description Provider 04/22/2020 G43.009 Migraine without aura, not intra ctable, without status migra Diane Kohler P.A.-C. 04/22/2020 M54.2 Cervicalgia Patricia Macias.A.-C. 04/22/2020 G25.2 Other specified forms of tremor Diane Kohler P.A.-C. 04/22/2020 M54.5 Low back pain Diane Kohler, P.A.-C. 04/22/2020 G25.81 Restless legs syndrome Patricia Retana.A.-C. 04/22/2020 G47.33 Obstructive sleep apnea (adult) (pediatric) Diane Kohler, P.A.-C. 04/22/2020 F41.1 Generalized anxiety disorder Adamaris Kohler, P.A.-C. 03/11/2020 G43.009 Migraine without aura, not intra ctable, without status migra Diane Kohler, P.A.-C. 03/11/2020 M54.2 Cervicalgia Diane Kohler, P.A.-C. 03/11/2020 G25.2 Other specified forms of tremor Diane Kohler, P.A.-C. 03/11/2020 M54.5 Low back pain Diane Kohler, P.A.-C. 03/11/2020 G25.81 Restless legs syndrome Patricia Retana.A.-C. 03/11/2020 G47.33 Obstructive sleep apnea (adult) (pediatric) Diane Kohler, P.A.-C. 03/11/2020 F41.1 Generalized anxiety disorder Adamaris Kohler, P.A.-C. 12/06/2019 G43.009 Migraine without aura, not intra ctable, without status migra Diane Kohler, P.A.-C. 12/06/2019 M54.2 Cervicalgia Diane Kohler, P.A.-C. 12/06/2019 M54.5 Low back pain Diane Kohler, P.A.-C. 12/06/2019 G25.2 Other specified forms of tremor Diane Kohler, P.A.-C. 12/06/2019 G25.81 Restless legs syndrome Patricia Retana.A.-C. 12/06/2019 G47.33 Obstructive sleep apnea (adult) (pediatric) Diane Kohler P.A.-C. 12/06/2019 F41.1 Generalized anxiety disorder Adamaris Kohler P.A.-C. Plan of Treatment Future Appointment(s):* 10/21/2020 2:45 pm - Diane Kohelr P.A.-C. at Main office - [place] 04/22/2020 - Diane Kohler P.A.-C.* G43.009 Migraine without aura, not intractable, without status migra* Comments:* Controlled. Continue current medications. * M54.2 Cervicalgia* Comments:* Resolved. * G25.2 Other specified forms of tremor* Comments:* Not recurrent. * M54.5 Low back pain* Comments:* Controlled with massage and rest. * G25.81 Restless legs syndrome* Comments:* Controlled. * G47.33 Obstructive sleep apnea (adult) (pediatric)* Comments:* Symptoms resolved with weight loss. * F41.1 Generalized anxiety disorder* Comments:* Controlled with hydroxyzine as needed. * Follow up:* 6 months. Functional Status Description No Information Available Mental Status Description No Information Available Referrals Refer to Dr Reason for Referral Status Appt Date Halle Mcfadden M.D. Created [facility] [address] [place] [address] [phone]
--- OUTSIDE RECORDS SUMMARY | 2020-07-21 14:04 | CCD | Continuity of Care Document ---
Author Author Maria Fernanda KOHLER P.A.-C. Organization Unknown Address [address] [place] [address] Phone [phone] Care Team Providers Care Debug Technician Name Role Phone Zara Dawsonyogi Herndon AUTM [phone] Problems Active Problems Provider Date Obstructive sleep apnea syndrome Arnie Nicole M.D. Onset: 01/31/2014 Restless legs Arnie Nicole M.D. Onset: 01/31/2014 Insomnia Arnie Nicloe M.D. Onset: 01/31/2014 Migraine without aura Arnie [...] @11PM 30tabs Arnie Nicole M.D. 3 Drisdol [id number] Capsules one capsule once a week 5caps [...] Office Visit 04/22/2020 2:45p Main office - [place] Diane shoemaker P.A.-C. G43.009 Migraine w/o aura, not intractable, w/o status migrainosus M54.2 Cervicalgia G25.2 Other specified forms of orly mor M54.5 Low back pain G25.81 Restless legs syndrome G47.33 Obstructive sleep apnea (zach lt) (pediatric) F41.1 Generalized anxiety disorder Office Visit 12/06/2019 11:15a Main office - [place] Diane shoemaker P.A.-C. G43.009 Migraine w/o aura, [...] disorder Adamaris Kohler P.A.-C. Plan of Treatment No Information Available Functional Status Description No Information Available Mental Status Description No Information Available Referrals Refer to Reason for Referral Status Appt Date Halle Mcfadden M.D. Created [facility] [address] [place], [place] [id number] [phone]
--- OUTSIDE RECORDS SUMMARY | 2020-07-21 14:04 | CCD ---
Author Author [facility] Organization [facility] Address Unknown Phone Unavailable Care Team Providers Care Gas Load Dispatcher Name Role Phone Arnold Dawson Unavailable PROBLEMS Type Condition ICD9-CM Code [id number] Code Onset Dates Condition S tatus SNOMED Code Notes Problem Arthritis involving multiple sites M12.9 Activ e 606431980 Problem Obstructive sleep apnea G47.33 Active 28190391 Problem Uncontrolled type 2 diabetes mellitus without complication, without long-term current use of insulin E11.65 Active 313 019704 Problem Migraine without aura and without status migrain osus, not intractable G43.009 Active 667384009 Problem supervisor intermediates current use of insulin Z79.4 Active 195440533 Problem Proteinuria, unspecified R80.9 Active 9129142 8 Problem Type 2 diabetes mellitus without complications E11 .9 Active 493176273 Problem Dyslipidemia E78.5 Active 511129597 Problem Hypertension, unspecified type I10 Active 3 2668406 Problem Plaque psoriasis L40.0 Active 803251431 Problem Arthritis M19.90 Active 7740656 Problem Major depressive disorder, recurrent, mild F33.0 Active 314896783 Problem Primary hypertension I10 Active 49507383 Problem Becerra's esophagus with dysplasia, unspecified K2 2.719 Active 8177393233944879 Problem Adjustment disorder with depressed mood F43.21 Active 14400851 Problem Psoriasis L40.9 Active 6606583 Problem Seasonal allergies J30.2 Active 882450693 Problem Grief reaction F43.21 Active 177438047 Problem Generalized anxiety disorder F41.1 Active 218 06479 ALLERGIES Allergen (clinical drug ingredient) Drug/Non Drug Allergy do cumented on EMR Reaction Allergy Type Onset Date Status morphine Morphine Sulfate([facility] Code:[address]-79) Nausea/Vomiti ng Drug Allergy Active ENCOUNTERS from 1960 to 2020-05-26 Encounter Location Date Provider Diagnosis [facility] GME Resident [address] [facility] [address] [place] [address] Mar, Arnold Samir Sprain of left ankle, unspec ified ligament, subsequent encounter S93.402D ; Uncontrolled type 2 diabetes mellitus without complication, without long-term current use of insulin E11.65 and Encounter for immunization Z23 IMMUNIZATIONS Vaccine Route Administration Date Status Influenza (18 yrs & older) Flublok IM Intramuscular Apr 11, 2020 Administered Influenza (18 yrs & older) Flublok IM Intramuscular Jun 15, 2019 Administered Influenza (18 yrs & older) Flublok IM Intramuscular Feb 28, 2018 Administered Pneumococcal Adult 0.5mL (Pneumovax 23) IM Intramuscular July 302016 Administered Influenza (6mo & up) Fluzone Unknown Mar 15, 2017 Adm inistered Influenza (6mo & up) Fluzone IM Intramuscular Feb 24, 2016 Ad ministered Influenza (6mo & up) Fluzone IM Intramuscular Feb 13, 2015 Ad ministered SOCIAL HISTORY Tobacco Use: Social History Observation Description Date Details (start date - stop date) Never Smoker Sex Assigned At : Social History Observation Description Sex Assigned At Unknown Education: Question Answer Notes Level of Education: Not finished High School 10 th grade, GE D Audit Question Answer Notes Total Score: 0 Interpretation: Alcohol Education Sexual Hx: Question Answer Notes Had sex in the last 12 months (vaginal, oral, or anal)? Yes Drug and Alcohol Question Answer Notes Total Score: 0 Interpretation: No problems reported Alcohol Screening: Question Answer Notes Did you have a drink containing alcohol in the past year? No Points 0 Interpretation Negative BMI Care Goal Follow-Up Question Answer Notes Above Normal BMI Follow-Up Dietary management educatio n, guidance, and counseling Tobacco Use: Question Answer Notes Are you a: never smoker never smoker REASON FOR REFERRAL No Information VITAL SIGNS Weight 168 lbs Mar, Height 67 in Mar, BMI 26.31 kg/m2 Mar, Heart Rate 106 /min Mar, Respiratory Rate 18 /min Mar, Temperature 98.1 degrees Fahrenheit Mar, Oximetry 99 Mar, Blood pressure systolic 122 mm Hg Mar, Blood pressure diastolic 62 mm Hg Mar, MEDICATIONS Medication SIG (Take, Route, Frequency, Duration) Notes Start Da te End Date Status Lancets 1 one touch 33 g ICD: E11.9 FSBS four times daily for 30 day (s) Active Glucophage XR 500 MG 2 tablet with evening meal Orally bid Active Lancet Device _ as directed DX: E11.9 twice a day to test blood sugars for 99 months Jun, Active Basaglar KwikPen 100 UNIT/ML 40 units Subcutaneous Daily for 30 Active Gabapentin 600 MG 1 capsule Orally three times daily Active OneTouch Ultra 2 w/Device as directed intradermally bid for 90 d ays Mar, Active B-Stress 1 cap Orally Daily Active Simethicone 80 MG 1 tablet after meals and at bedtime as needed Orally every 6 hours as needed for 30 days Acti ve BD Pen Needle Ultrafine 29G X 12.7MM as directed subcu taneously 4 times daily (E11.65) for 30 day(s) Jul, Active Vitamin D 2000 UNIT 1 tablet Orally Daily Active Aspirin 81 MG 1 tablet Orally Once a day Active MetFORMIN HCl ER 500 MG 2 tabs Orally twice a day for 28 Active Lancets - as directed _ DX:E11.9 twice daily for 30 day(s) Active Lisinopril 20 MG 2 tablet Orally Once a day for 30 Days Active AmLODIPine Besylate 10 MG 1 tablet Orally Once a day 2016 Active Prednicarbate 0.1 % 1 application to affected ar ea Externally Twice a day to area groin to thighs and buttocks for 30 days Dec, Active Omeprazole 40 MG 1 capsule 30 minutes before morning meal Orally Once a day for 30 day(s) Active Alcohol Pads 70 % as directed _ four times daily for 30 day(s) Mar, Active Multivitamins - 1 cap Orally Daily A ctive Dex4 Glucose 4 GM as directed Orally as needed for low BG for 30 day(s) Jan, Active OneTouch Ultra Test - USE DIRECTED TO CHECK SUGARs FOUR TIMES DAILY for 25 Active Betamethasone Dipropionate Aug 0.05 % 1 application to affected area Externally Nightly to areas on body and hands involved (not face, groin or armpits) for 30 days Active Mobic 7.5 MG 1 tablet Orally Once a day Active Trulicity 1.5 MG/0.5ML INJECT ONE PEN SUBCUTANEOUSLY EVERY WEEK for 2 8 Active Amitriptyline HCl 100 MG 1 tablet at bedtime Orally Once a day Active Topiramate ER 200 MG 1 capsule Orally before bedtime Active Blood Glucose Test - as directed In Vitro DX:E11.9 twice daily f or 30 day(s) Jan, Active BD Insulin Syringe 29G X 1/2 as directed subcutaneousl y three times daily as needed for 30 day(s) Jan, Active Blood Glucose Meter - as directed _ as directed (E11.9) for [address] [facility] Apr, Active Calcium 500 MG 1 tablet with meals Orally Twice a day Active Fiber Choice Fruity Bites 1.5 GM Orally Active Tizanidine HCl 2 MG TAKE 1-2 TABLETS BY MOUTH AT BEDTIME Oral for 30 Active Glucose Blood One Touch as directed In Vitro ICD: E1 1.9 check suagrs qid for 1 month Oct, Active Meloxicam 15 MG TAKE ONE TABLET BY MOUTH ONC E DAILY WITH FOOD OR MILK Oral for 30 Active Omeprazole 40 MG TAKE ONE CAPSULE BY MOUTH @9AM for 28 Active PROCEDURES from 1960 to 2020-05-26 Procedure Date Ordered Result Body Site Immunization: Flublok Quadrivalent (18 years & older) 0.5mL IM (Influenza) 2020-04-11 N/A RESULTS No Results REASON FOR VISIT follow up and flu shot , Please pull DOWNTIME chart MEDICAL (GENERAL) HISTORY Type Description Date Medical History Dyslipidemia Medical History Hypertension, Goal of < 140/80 Medical History GERD Medical History WILLIE Medical History Type 2 diabetes, Goal of A1c < 7.5% Medical History Other iron deficiency anemia Medical History Gastroesophageal reflux dise ase, esophagitis presence not specified Medical History Sleep difficulties Surgical History repair R eardrum age 12 Surgical History R elbow "pinched nerve" 2013 Surgical History right thigh I&D 2015 Surgical History heart catheterization 11/25/16 Hospitalization History related to surgery Goals Section No Information Health Concerns No Information MEDICAL EQUIPMENT No Information MENTAL STATUS No Information FUNCTIONAL STATUS No Information ASSESSMENTS Encounter Date Diagnosis Assessment Notes Treatment Notes Treatm ent Clinical Notes Mar, Sprain of left ankle, unspec ified ligament, subsequent encounter (ICD-10 - S93.402D) Resolution of left ankle pain. Mar, Uncontrolled type 2 diabetes mellitus without complication, without long-term current use of insulin (ICD-10 - E11.65) Prescription for new monitor to be sent to the pharmacy. A1c microalbumin ordered for review at patient's next appointment in 06/19. She is currently utilizing long-acting insulin, in addition to metformin and Trulicity for management of her insulin-dependent diabetes mellitus type 2. Review of patient's previous A1c of 5.3 indicates that perhaps patient may not require such an intensive regimen. Of particular concern is the amount of insulin she was requiring. If patient's updated A1c is at or below goal, we will consider reducing her insulin requirement and further monitoring of her A1c. Discussed with the patient today who is in agreement with the plan. Patient is up-to-date with pneumococcal vaccination. Mar, Encounter for immunization (ICD-10 - Z23) Patient Educated with: FLU Vaccine, Inactivated [id number] (FLU Vaccine, Inactivated [id number]) Post influenza vaccination care discussed. PLAN OF TREATMENT Medication Medication Name Sig Start Date Stop Date Basaglar KwikPen 100 UNIT/ML 40 units Subcutaneous Daily for 30 Omeprazole 40 MG TAKE ONE CAPSULE BY MOUTH @9AM for 28 MetFORMIN HCl ER 500 MG 2 tabs Orally twice a day for 28 Treatment Notes Assessment Notes Clinical Notes Sprain of left ankle, unspecified ligament, subsequent encou nter Resolution of left ankle pain. Uncontrolled type 2 diabetes mellitus wi thout complication, without long-term current use of insulin Prescription for new monitor to be sent to the pharmacy. A1c microalbumin ordered for review at patient's next appointment in 06/19. She is currently utilizing long-acting insulin, in addition to metformin and Trulicity for management of her insulin-dependent diabetes mellitus type 2. Review of patient's previous A1c of 5.3 indicates that perhaps patient may not require such an intensive regimen. Of particular concern is the amount of insulin she was requiring. If patient's updated A1c is at or below goal, we will consider reducing her insulin requirement and further monitoring of her A1c. Discussed with the patient today who is in agreement with the plan. Patient is up-to-date with pneumococcal vaccination. Encounter for immunization Patient Educated with: FLU Vaccine, Inactivated [id number] (FLU Vaccine, Inactivated [id number]) Post influenza vaccination care discussed. Treatment Notes Test Name Order Date HEMOGLOBIN A1c 2020-05-26 MICROALBUMIN RANDOM 2020-05-26 Next Appt Details May 2020 Reason:diabetes Provider Name:Arnold Dawson, 2020-06-09 1 0:00:00 AM, [address] [facility], [place], [address], Follow Up:Mayiabetes Insurance Providers Payer Name Payer Address Payer Phone Insured Name Patient Relati onship to Insured Coverage Start Date Coverage End Date [facility] [address] [facility] [phone] FRANK JIMENEZ self
--- OUTSIDE RECORDS SUMMARY | 2020-07-21 14:04 | CCD ---
Author Author [facility] Organization [facility] Address Unknown Phone Unavailable Care Team Providers Care Vegetable Grader Name Role Phone Arnold Dawson Unavailable PROBLEMS Type Condition ICD9-CM Code [id number] Code Onset Dates Condition S tatus SNOMED Code Notes Problem Uncontrolled type 2 diabetes mellitus without complication, without long-term current use of insulin E11.65 Active 313 757207 Problem Migraine without aura and without status migrain osus, not intractable G43.009 Active 944419706 Problem senior care current use of insulin Z79.4 Active 653350964 Problem Proteinuria, unspecified R80.9 Active 5372395 8 Problem Type 2 diabetes mellitus without complications E11 .9 Active 583822433 Problem Dyslipidemia E78.5 Active 068741082 Problem Primary hypertension I10 Active 46002172 Problem Adjustment disorder with depressed mood F43.21 Active 08808575 Problem Arthritis M19.90 Active 0249611 Problem Psoriasis L40.9 Active 4299417 Problem Seasonal allergies J30.2 Active 704736209 Problem Allergic rhinitis, unspecified seasonality, unspecifie d trigger J30.9 Active 83127932 Problem Plaque psoriasis L40.0 Active 639434423 Problem Obstructive sleep apnea G47.33 Active 76458922 Problem Vasomotor rhinitis J30.0 Active 0027196 Problem Hypertension, unspecified type I10 Active 3 0096308 Problem Arthritis involving multiple sites M12.9 Activ e 468698748 Problem Grief reaction F43.21 Active 784087455 Problem Generalized anxiety disorder F41.1 Active 218 44768 Problem Major depressive disorder, recurrent, mild F33.0 Active 593749442 Problem Becerra's esophagus with dysplasia, unspecified K2 2.719 Active 5733163250136163 ALLERGIES Allergen (clinical drug ingredient) Drug/Non Drug Allergy do cumented on EMR Reaction Allergy Type Onset Date Status morphine Morphine Sulfate([facility] Code:[address]-63) Nausea/Vomiti ng Drug Allergy Active ENCOUNTERS from 1960 to 2020-06-27 Encounter Location Date Provider Diagnosis [facility] [address] [place] [address] May [facility] Samir IMMUNIZATIONS Vaccine Route Administration Date Status Influenza [...] REASON FOR REFERRAL No Information VITAL SIGNS No information MEDICATIONS Medication SIG (Take, Route, Frequency, Duration) Notes Start Da te End Date Status Fluticasone Propionate 50 MCG/ACT 1 spray in each nost ril Nasally Once a day for 30 day(s) May, Active Glucose Blood One Touch as directed In Vitro ICD: E1 1.9 check suagrs qid for 1 month 22 Gerardo, 2015 Active Acetic Acid 2 % 5 drops into affected ear Otic Three lacy es a day for 10 day(s) May, Active Tizanidine HCl 2 MG TAKE 1-2 TABLETS BY MOUTH AT BEDTIME Oral for 30 Active Alcohol Pads 70 % as directed _ four times daily for 30 day(s) Mar, Active Atorvastatin Calcium 40 MG Take 1 tablet by mouth at bedtime for 28 Active Fish Oil 1000 MG 1 capsule Orally Once a day for 30 day(s) Active Dex4 Glucose 4 GM as directed Orally as needed for low BG for 30 day(s) Jan, Active BD Pen Needle Ultrafine 29G X 12.7MM as directed subcu taneously 4 times daily (E11.65) for 30 day(s) Jul, Active Lancets 1 one touch 33 g ICD: E11.9 FSBS four times daily for 30 day (s) Active Lisinopril 20 MG 2 tablet Orally Once a day for 28 Active Critical Media Ultra Test - USE DIRECTED TO CHECK SUGARs FOUR TIMES DAILY for 25 Active MetFORMIN HCl ER 500 MG 2 tabs Orally twice a day for 28 Active Blood Glucose Meter - as directed _ as directed (E11.9) for 99 m [facility] Apr, Active Critical Media Ultra 2 w/Device as directed intradermally bid for 90 d ays Mar, Active Topiramate ER 200 MG 1 capsule Orally before bedtime Active Lancets - as directed _ DX:E11.9 twice daily for 30 day(s) Active Trulicity 1.5 MG/0.5ML INJECT ONE PEN SUBCUTANEOUSL Y EVERY WEEK Subcutaneous once weekly for 28 days Active Amitriptyline HCl 100 MG 1 tablet at bedtime Orally Once a day Active Prednicarbate 0.1 % 1 application to affected ar ea Externally Twice a day to area groin to thighs and buttocks for 30 days Dec, Active Betamethasone Dipropionate Aug 0.05 % 1 application to affected area Externally Nightly to areas on body and hands involved (not face, groin or armpits) for 30 days Active Gabapentin 600 MG 1 capsule Orally three times daily Active Basaglar KwikPen 100 UNIT/ML 40 units Subcutaneous Daily for 30 Active Omeprazole 40 MG 1 capsule 30 minutes before morning meal Orally Once a day for 30 day(s) Active Lancet Device _ as directed DX: E11.9 twice a day to test blood sugars for 99 months Jun, Active AmLODIPine Besylate 10 MG 1 tablet Orally Once a day 2016 Active Aspirin 81 MG 1 tablet Orally Once a day Active Blood Glucose Test - as directed In Vitro DX:E11.9 twice daily f or 30 day(s) Jan, Active PROCEDURES No Information RESULTS No Results REASON FOR VISIT refill MEDICAL (GENERAL) HISTORY Type Description Date Medical [...] No Information FUNCTIONAL STATUS No Information ASSESSMENTS No Information PLAN OF TREATMENT Medication Medication Name Sig Start Date Stop Date Atorvastatin Calcium 40 MG Take 1 tablet by mouth at bedtime for 28 Trulicity 1.5 MG/0.5ML INJECT ONE PEN SUBCUTANEOUSL Y EVERY WEEK Subcutaneous once weekly for 28 days Lisinopril 20 MG 2 tablet Orally Once a day for 28 Next Appt Details Provider Name:Arnold Dawson, 2020-07-08 0 1:15:00 PM, [address] [facility], [place], [address], Insurance Providers Payer Name Payer Address Payer Phone Insured Name Patient Relati onship to Insured Coverage Start Date Coverage End Date [facility] [address] [facility] [id number] FRANK JIMENEZ self
--- OUTSIDE RECORDS SUMMARY | 2020-07-21 14:04 | CCD ---
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 Role Phone Arnold Dawson Unavailable PROBLEMS Type Condition ICD9-CM Code [id number] Code Onset Dates Condition S tatus SNOMED Code Notes Problem Uncontrolled type 2 diabetes mellitus without complication, without long-term current use of insulin E11.65 Active 313 478273 Problem Migraine without aura and without status migrain osus, not intractable G43.009 Active 717737940 Problem prison current use of insulin Z79.4 Active 961357781 Problem Proteinuria, unspecified R80.9 Active 8151176 8 Problem Type 2 diabetes mellitus without complications E11 .9 Active 679463010 Problem Dyslipidemia E78.5 Active 226230825 Problem Primary hypertension I10 Active 45702832 Problem Adjustment disorder with depressed mood F43.21 Active 60528560 Problem Arthritis M19.90 Active 9928134 Problem Psoriasis L40.9 Active 8822712 Problem Seasonal allergies J30.2 Active 403852420 Problem Allergic rhinitis, unspecified seasonality, unspecifie d trigger J30.9 Active 64891120 Problem Plaque psoriasis L40.0 Active 506333251 Problem Obstructive sleep apnea G47.33 Active 75519712 Problem Vasomotor rhinitis J30.0 Active 8794875 Problem Hypertension, unspecified type I10 Active 3 9973997 Problem Arthritis involving multiple sites M12.9 Activ e 716448733 Problem Grief reaction F43.21 Active 347354718 Problem Generalized anxiety disorder F41.1 Active 218 79259 Problem Major depressive disorder, recurrent, mild F33.0 Active 311743531 Problem Becerra's esophagus with dysplasia, unspecified K2 2.719 Active [id number] ALLERGIES Allergen (clinical drug ingredient) Drug/Non Drug Allergy do cumented on EMR Reaction Allergy Type Onset Date Status morphine Morphine Sulfate([facility] Code:[address]-96) Nausea/Vomiti ng Drug Allergy Active ENCOUNTERS from 1960 to 2020-06-09 Encounter Location Date Provider Diagnosis [facility] [place] Resident [address] [facility] [place] [address] May, Arnold Samir Primary hypertension I10 ; T ype 2 diabetes mellitus without complications E11.9 ; terminal block assembler current use of insulin Z79.4 ; Impacted cerumen, right ear H61.21 and Allergic rhinitis, unspecified seasonality, unspecified trigger J30.9 IMMUNIZATIONS Vaccine Route Administration Date Status Influenza [...] FOR REFERRAL No Information VITAL SIGNS Weight 176 lbs May, Height 67 in May, BMI 27.56 kg/m2 May, Heart Rate 106, 101 /min May, Respiratory Rate 17 /min May, Temperature 97.2 degrees Fahrenheit May, Oximetry 99 May, Blood pressure systolic 150 mm Hg May, Blood pressure diastolic 80 mm Hg May, MEDICATIONS Medication SIG (Take, Route, Frequency, Duration) Notes Start Da te End Date Status MetFORMIN HCl ER 500 MG 2 tabs Orally twice a day for 28 Active Lancets 1 one touch 33 g ICD: E11.9 FSBS four times daily for 30 day (s) Active Trulicity 1.5 MG/0.5ML INJECT ONE PEN SUBCUTANEOUSLY EVERY WEEK for 2 8 Active Amitriptyline HCl 100 MG 1 tablet at bedtime Orally Once a day Active AmLODIPine Besylate 10 MG 1 tablet Orally Once a day 2016 Active Dex4 Glucose 4 GM as directed Orally as needed for low BG for 30 day(s) Jan, Active Basaglar KwikPen 100 UNIT/ML 40 units Subcutaneous Daily for 30 Active Alcohol Pads 70 % as directed _ four times daily for 30 day(s) Mar, Active Fish Oil 1000 MG 1 capsule Orally Once a day for 30 day(s) Active Glucose Blood One Touch as directed In Vitro ICD: E1 1.9 check suagrs qid for 1 month Oct, Active Blood Glucose Meter - as directed _ as directed (E11.9) for 99 m [facility] Apr, Active Lisinopril 20 MG 2 tablet Orally Once a day for 30 Days Active Lancet Device _ as directed DX: E11.9 twice a day to test blood sugars for 99 months Jun, Active OneTouch Ultra 2 w/Device as directed intradermally bid for 90 d ays Mar, Active Gabapentin 600 MG 1 capsule Orally three times daily Active Lancets - as directed _ DX:E11.9 twice daily for 30 day(s) Active OneTouch Ultra Test - USE DIRECTED TO CHECK SUGARs FOUR TIMES DAILY for 25 Active Aspirin 81 MG 1 tablet Orally Once a day Active Topiramate ER 200 MG 1 capsule Orally before bedtime Active Blood Glucose Test - as directed In Vitro DX:E11.9 twice daily f or 30 day(s) Jan, Active Omeprazole 40 MG 1 capsule 30 minutes before morning meal Orally Once a day for 30 day(s) Active Betamethasone Dipropionate Aug 0.05 % 1 application to affected area Externally Nightly to areas on body and hands involved (not face, groin or armpits) for 30 days Active Acetic Acid 2 % 5 drops into affected ear Otic Three lacy es a day for 10 day(s) May, Active Prednicarbate 0.1 % 1 application to affected ar ea Externally Twice a day to area groin to thighs and buttocks for 30 days Dec, Active BD Pen Needle Ultrafine 29G X 12.7MM as directed subcu taneously 4 times daily (E11.65) for 30 day(s) Jul, Active Tizanidine HCl 2 MG TAKE 1-2 TABLETS BY MOUTH AT BEDTIME Oral for 30 Active Fluticasone Propionate 50 MCG/ACT 1 spray in each nost ril Nasally Once a day for 30 day(s) May, Active PROCEDURES No Information RESULTS No Results REASON FOR VISIT May 2020 (Reason: diabetes) MEDICAL (GENERAL) HISTORY Type Description Date Medical History Dyslipidemia Medical History Hypertension, Goal of < 140/80 Medical History GERD Medical History WLILIE Medical History Type 2 diabetes, Goal of [...] Notes Treatment Notes Treatm ent Clinical Notes May, Primary hypertension (ICD-10 - I10) Given patient's new finding of hypertension, in the setting of reported compliance with her current medications, we will order a pelvic laboratory studies. Patient is asked to measure her blood pressure independently as she is able over the next 1-2 weeks. We will see the patient again in the office in one week. If at that time, patient continues to have elevated pressure, and based on the findings of the ordered laboratory studies, we will prescribe blood pressure medication. This was discussed with the patient who is in agreement with this plan. Of particular, and aldosterone/renin ratio was ordered as it could be an indicator of responsiveness to beta blockers. As mentioned above, I'll see the patient back in the office for follow-up in one to weeks May, Type 2 diabetes mellitus without complications ( ICD-10 - E11.9) Based on patient's A1c her diabetes seems to be relatively well-controlled. Patient also reports adequate fasting sugars. We'll continue with her current regimen. She reports that she did not have a microalbumin performed as she was unable to provide an appropriate specimen. Patient is having labs drawn today in regards to her hypertension, patient will attempt to give a urine sample at that time. May, prison current use of insulin (ICD-10 - Z79.4 ) As above May, Impacted cerumen, right ear (ICD-10 - H61.21) She'll presents to significant amount of cerumen in her right ear causing an itching sensation. We discussed possible removal today. Patient elected for eyedrops. Prescription for acetic acid 2% will begin to the patient. Application instructions were reviewed. We'll plan to follow up patient in 1-2 weeks for repeat examination. We will again discuss possible manual removal at that time. May, Allergic rhinitis, unspecifi ed seasonality, unspecified trigger (ICD-10 - J30.9) Patient continues to have what appears to be allergic rhinitis. We will prescribe fluticasone nasal spray and reexamined at patient's health visit in 2 weeks. PLAN OF TREATMENT Medication Medication Name Sig Start Date Stop Date Acetic Acid 2 % 5 drops into affected ear Otic Three lacy es a day for 10 day(s) May, Fluticasone Propionate 50 MCG/ACT 1 spray in each nost ril Nasally Once a day for 30 day(s) May, Treatment Notes Assessment Notes Clinical Notes Primary hypertension Given patient's new finding of hypertension, in the setting of reported compliance with her current medications, we will order a pelvic laboratory studies. Patient is asked to measure her blood pressure independently as she is able over the next 1-2 weeks. We will see the patient again in the office in one week. If at that time, patient continues to have elevated pressure, and based on the findings of the ordered laboratory studies, we will prescribe blood pressure medication. This was discussed with the patient who is in agreement with this plan. Of particular, and aldosterone/renin ratio was ordered as it could be an indicator of responsiveness to beta blockers. As mentioned above, I'll see the patient back in the office for follow-up in one to weeks Type 2 diabetes mellitus without complications Based on patient's A1c her diabetes seems to be relatively well-controlled. Patient also reports adequate fasting sugars. We'll continue with her current regimen. She reports that she did not have a microalbumin performed as she was unable to provide an appropriate specimen. Patient is having labs drawn today in regards to her hypertension, patient will attempt to give a urine sample at that time. 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 We discussed possible removal today. Patient elected for eyedrops. Prescription for acetic acid 2% will begin to the patient. Application instructions were reviewed. We'll plan to follow up patient in 1-2 weeks for repeat examination. We will again discuss possible manual removal at that time. Allergic rhinitis, unspecified seasonality, unspecified trig yoel Patient continues to have what appears to be allergic rhinitis. We will prescribe fluticasone nasal spray and reexamined at patient's health visit in 2 weeks. Treatment Notes Test Name Order Date CBC - Complete Blood Count 2020-06-09 Comprehensive Metabolic Profile (CMP) 2020-06-09 TSH 2020-06-09 ALDOSTERONE/RENIN RATIO 2020-06-09 Next Appt Details 1-2 weeks Reason:BP, Labs, Ear, Allergie s Provider Name:Arnold Dawson, 2020-06-23 1 1:30:00 AM, [address] [place], [address], Follow Up:1-2 weeksBP, Labs, Ear, Allergies Insurance Providers Payer Name Payer Address Payer Phone Insured Name Patient Relati onship to Insured Coverage Start Date Coverage End Date [facility] [address] [place] [id number] FRANK JIMENEZ self
--- OUTSIDE RECORDS SUMMARY | 2020-07-21 14:04 | CCD ---
Author Author [facility] Organization [facility] Address Unknown Phone Unavailable Care Team Providers Care Chief [facility] Name Role Phone Nicolas Rangel Unavailable PROBLEMS Type Condition ICD9-CM Code [id number] Code Onset Dates Condition S tatus SNOMED Code Notes Problem Arthritis involving multiple sites M12.9 Activ e 871347509 Problem Obstructive sleep apnea G47.33 Active 97344258 Problem Uncontrolled type 2 diabetes mellitus without complication, without long-term current use of insulin E11.65 Active 313 026643 Problem Migraine without aura and without status migrain osus, not intractable G43.009 Active 562049543 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 Active 030867918 Problem Proteinuria, unspecified R80.9 Active 9109584 8 Problem Type 2 diabetes mellitus without complications E11 .9 Active 092330896 Problem Dyslipidemia E78.5 Active 115115704 Problem Hypertension, unspecified type I10 Active 3 1802402 Problem Plaque psoriasis L40.0 Active 683200397 Problem Arthritis M19.90 Active 9748573 Problem Major depressive disorder, recurrent, mild F33.0 Active 829936991 Problem Primary hypertension I10 Active 72117695 Problem Becerra's esophagus with dysplasia, unspecified K2 2.719 Active 7055078911971834 Problem Adjustment disorder with depressed mood F43.21 Active 09952857 Problem Psoriasis L40.9 Active 3864656 Problem Seasonal allergies J30.2 Active 077174820 Problem Grief reaction F43.21 Active 235584264 Problem Generalized anxiety disorder F41.1 Active 218 38376 ALLERGIES Allergen (clinical drug ingredient) Drug/Non Drug Allergy do cumented on EMR Reaction Allergy Type Onset Date Status morphine Morphine Sulfate([facility] Code:[address]-96) Nausea/Vomiti ng Drug Allergy Active ENCOUNTERS from 1959 to 2020-05-06 Encounter Location Date Provider Diagnosis [facility] Resident [address] [facility] [place] [address] 07 Apr, 2020 Nicolas Juan Carlos IMMUNIZATIONS Vaccine Route Administration Date Status Influenza [...] Notes Start Da te End Date Status B-Stress 1 cap Orally Daily Active Aspirin 81 MG 1 tablet Orally Once a day Active MetFORMIN HCl ER 500 MG 2 tabs Orally twice a day for 28 Active Vitamin D 2000 UNIT 1 tablet Orally Daily Active Glucophage XR 500 MG 2 tablet with evening meal Orally bid Active Lancet Device _ as directed DX: E11.9 twice a day to test blood sugars for 99 months Jun, Active Amitriptyline HCl 100 MG 1 tablet at bedtime Orally Once a day Active AmLODIPine Besylate 10 MG 1 tablet Orally Once a day 2016 Active Prednicarbate 0.1 % 1 application to affected ar ea Externally Twice a day to area groin to thighs and buttocks for 30 days Dec, Active Lisinopril 20 MG 2 tablet Orally Once a day for 30 Days Active Simethicone 80 MG 1 tablet after meals and at bedtime as needed Orally every 6 hours as needed for 30 days Acti ve BD Pen Needle Ultrafine 29G X 12.7MM as directed subcu taneously 4 times daily (E11.65) for 30 day(s) Jul, Active Omeprazole 40 MG 1 capsule 30 minutes before morning meal Orally Once a day for 30 day(s) Active Betamethasone Dipropionate Aug 0.05 % 1 application to affected area Externally Nightly to areas on body and hands involved (not face, groin or armpits) for 30 days Active Lancets - as directed _ DX:E11.9 twice daily for 30 day(s) Active Blood Glucose Test - as directed In Vitro DX:E11.9 twice daily f or 30 day(s) Jan, Active Trulicity 1.5 MG/0.5ML INJECT ONE PEN SUBCUTANEOUSLY EVERY WEEK for 2 8 Active Alcohol Pads 70 % as directed _ four times daily for 30 day(s) Mar, Active BD Insulin Syringe 29G X 1/2 as directed subcutaneousl y three times daily as needed for 30 day(s) Jan, Active Blood Glucose Meter - as directed _ as directed (E11.9) for 99 m [facility] Apr, Active Basaglar KwikPen 100 UNIT/ML 40 units Subcutaneous Daily Active Calcium 500 MG 1 tablet with meals Orally Twice a day Active OneTouch Ultra Test - USE DIRECTED TO CHECK SUGARs FOUR TIMES DAILY for 25 Active Topiramate ER 200 MG 1 capsule Orally before bedtime Active Gabapentin 600 MG 1 capsule Orally three times daily Active OneTouch Ultra 2 w/Device as directed intradermally bid for 90 d ays Mar, Active Mobic 7.5 MG 1 tablet Orally Once a day Active Lancets 1 one touch 33 g ICD: E11.9 FSBS four times daily for 30 day (s) Active Multivitamins - 1 cap Orally Daily A ctive Dex4 Glucose 4 GM as directed Orally as needed for low BG for 30 day(s) Jan, Active Glucose Blood One Touch as directed In Vitro ICD: E1 1.9 check suagrs qid for 1 month Oct, Active Fiber Choice Fruity Bites 1.5 GM Orally Active Tizanidine HCl 2 MG TAKE 1-2 TABLETS BY MOUTH AT BEDTIME Oral for 30 Active Meloxicam 15 MG TAKE ONE TABLET BY MOUTH ONC E DAILY WITH FOOD OR MILK Oral for 30 Active PROCEDURES No Information RESULTS No Results REASON FOR VISIT no showed MEDICAL (GENERAL) HISTORY Type Description Date Medical [...] Medication Name Sig Start Date Stop Date MetFORMIN HCl ER 500 MG 2 tabs Orally twice a day for 28 Next Appt Details Provider Name:Arnold Samir, 2020-06-09 1 0:00:00 AM, [address] [place], [address], Insurance Providers Payer Name Payer Address Payer Phone Insured Name Patient Relati onship to Insured Coverage Start Date Coverage End Date [facility] [address] [facility] [id number] FRANK JIMENEZ self
--- OUTSIDE RECORDS SUMMARY | 2020-07-21 14:05 | CCD ---
Author Author [facility] Organization [facility] Address Unknown Phone Unavailable Care Team Providers Care Frothing Machine Operator Name Role Phone Kocan, J Berenice REGIONAL EDUCATION COORDINATOR Unavailable Unavailable Kocan, J Berenice REGIONAL EDUCATION COORDINATOR Unavailable Unavailable Kocan, J Berenice REGIONAL EDUCATION COORDINATOR Unavailable Unavailable Kocan, J Berenice REGIONAL EDUCATION COORDINATOR Unavailable Unavailable Kocan, J Berenice REGIONAL EDUCATION COORDINATOR Unavailable Unavailable Kocan, J Berenice REGIONAL EDUCATION COORDINATOR Unavailable Unavailable Kocan, J Berenice REGIONAL EDUCATION COORDINATOR Unavailable Unavailable Kocan, J Berenice REGIONAL EDUCATION COORDINATOR Unavailable Unavailable Kocan, J Berenice REGIONAL EDUCATION COORDINATOR Unavailable Unavailable Kocan, J Berenice REGIONAL EDUCATION COORDINATOR Unavailable Unavailable Kocan, J Berenice REGIONAL EDUCATION COORDINATOR Unavailable Unavailable Kocan, J Berenice REGIONAL EDUCATION COORDINATOR Unavailable Unavailable Kocan, J Berenice REGIONAL EDUCATION COORDINATOR Unavailable Unavailable Robbi DUMONT DPM Unavailable Unavailable Robbi DUMONT DPM Unavailable Unavailable Robbi DUMONT DPM Unavailable Unavailable Robbi DUMONT DPM Unavailable Unavailable Robbi DUMONT DPM Unavailable Unavailable Robbi DUMONT DPM Unavailable Unavailable Robbi DUMONT DPM Unavailable Unavailable Robbi DUMONT DPM Unavailable Unavailable Robbi DUMONT DPM Unavailable Unavailable Robbi DUMONT DPM Unavailable Unavailable MAJAK, R KAIT DPM Unavailable Unavailable MAJAK, R KAIT DPM Unavailable Unavailable MAJAK, R KAIT DPM Unavailable Unavailable MAJAK, R KAIT DPM Unavailable Unavailable MAJAK, R KAIT DPM Unavailable Unavailable MAJAK, R KAIT DPM Unavailable Unavailable MAJAK, R KAIT DPM Unavailable Unavailable MAJAK, R KAIT DPM Unavailable Unavailable MAJAK, R KAIT DPM Unavailable Unavailable MAJAK, R KAIT DPM Unavailable Unavailable MAJAK, R KAIT DPM Unavailable Unavailable MAJAK, R KAIT DPM Unavailable Unavailable MAJAK, R KAIT DPM Unavailable Unavailable MAJAK, R KAIT DPM Unavailable Unavailable MAJAK, R KAIT DPM Unavailable Unavailable MAJAK, R KAIT DPM Unavailable Unavailable MAJAK, R KAIT DPM Unavailable Unavailable MAJAK, R KAIT DPM Unavailable Unavailable MAJAK, R KAIT DPM Unavailable Unavailable MAJAK, R KAIT DPM Unavailable Unavailable Trickey, J Diane PA Unavailable Unavailable Trickey, J Diane PA Unavailable Unavailable Trickey, J Diane PA Unavailable Unavailable Trickey, J Diane PA Unavailable Unavailable Trickey, J Diane PA Unavailable Unavailable Trickey, J Diane PA Unavailable Unavailable Trickey, J Diane PA Unavailable Unavailable Trickey, J Diane PA Unavailable Unavailable Trickey, J Diane PA Unavailable Unavailable Trickey, J Diane PA Unavailable Unavailable Trickey, J Diane PA Unavailable Unavailable Trickey, J Diane PA Unavailable Unavailable Trickey, J Diane PA Unavailable Unavailable Trickey, J Diane PA Unavailable Unavailable Trickey, J Diane PA Unavailable Unavailable Trickey, J Diane PA Unavailable Unavailable Trickey, J Diane PA Unavailable Unavailable Trickey, J Diane PA Unavailable Unavailable Trickey, J Diane PA Unavailable Unavailable Trickey, J Diane PA Unavailable Unavailable Trickey, J Diane PA Unavailable Unavailable Trickey, J Diane PA Unavailable Unavailable Trickey, J Diane PA Unavailable Unavailable Trickey, J Diane PA Unavailable Unavailable Trickey, J Diane PA Unavailable Unavailable Trickey, J Diane PA Unavailable Unavailable Trickey, J Diane PA Unavailable Unavailable Trickey, J Diane PA Unavailable Unavailable Trickey, J Diane PA Unavailable Unavailable Trickey, J Diane PA Unavailable Unavailable Trickey, J Diane PA Unavailable Unavailable Trickey, J Diane PA Unavailable Unavailable Trickey, J Diane PA Unavailable Unavailable Trickey, J Diane PA Unavailable Unavailable Trickey, J Diane PA Unavailable Unavailable Trickey, J Diane PA Unavailable Unavailable Trickey, J Diane PA Unavailable Unavailable Trickey, J Diane PA Unavailable Unavailable Trickey, J Diane PA Unavailable Unavailable Trickey, J Diane PA Unavailable Unavailable Trickey, J Diane PA Unavailable Unavailable Trickey, J Diane PA Unavailable Unavailable Trickey, J Diane PA Unavailable Unavailable Trickey, J Diane PA Unavailable Unavailable Trickey, J Diane PA Unavailable Unavailable Trickey, J Diane PA Unavailable Unavailable Trickey, J Diane PA Unavailable Unavailable Trickey, J Diane PA Unavailable Unavailable Haris Burleson MD Unavailable Unavailable Vaneenkatieam, Haris Lovelace MD Unavailable Unavailable Vaneenkatieam, Haris Lovelace MD Unavailable Unavailable Vaneenkatieam, Haris Lovelace MD Unavailable Unavailable Vaneenkatieam, Haris Lovelace MD Unavailable Unavailable Sarah Beth, Haris Lovelace MD Unavailable Unavailable Sarah Beth, Haris Lovelace MD Unavailable Unavailable Haris Burleson MD Unavailable Unavailable Haris Burleson MD Unavailable Unavailable Sarah Beth, Haris Lovelace MD Unavailable Unavailable Sarah Beth, Haris Lovelace MD Unavailable Unavailable Sarah Beth, Haris Lovelace MD Unavailable Unavailable VaneenHaris ac MD Unavailable Unavailable Haris Burleson MD Unavailable Unavailable Haris Burleson MD Unavailable Unavailable Haris Burleson MD Unavailable Unavailable Haris Burleson MD Unavailable Unavailable Haris Burleson MD Unavailable Unavailable Haris Burleson MD Unavailable Unavailable Haris Burleson MD Unavailable Unavailable Haris Burleson MD Unavailable Unavailable Haris Burleson MD Unavailable Unavailable Haris Burleson MD Unavailable Unavailable Haris Burleson MD Unavailable Unavailable Haris Burleson MD Unavailable Unavailable Haris Burleson MD Unavailable Unavailable Haris Burleson MD Unavailable Unavailable Haris Burleson MD Unavailable Unavailable Haris Burleson MD Unavailable Unavailable Haris Burleson MD Unavailable Unavailable Haris Burleson MD Unavailable Unavailable Haris Burleson MD Unavailable Unavailable Haris Burleson MD Unavailable Unavailable Haris Burleson MD Unavailable Unavailable Haris Burleson MD Unavailable Unavailable Haris Burleson MD Unavailable Unavailable Haris Burleson MD Unavailable Unavailable VaneenenaamHaris MD Unavailable Unavailable Vaneenenaam, Haris Lovelace MD Unavailable Unavailable Vaneenenaam, Haris Lovelace MD Unavailable Unavailable Vaneenenaam, Haris Lovelace MD Unavailable Unavailable Vaneenenaam, Haris Lovelace MD Unavailable Unavailable Charlebois, A Ave RPA C Unavailable Unavailable Charlebois, A Ave RPA C Unavailable Unavailable Charlebois, A Ave RPA C Unavailable Unavailable Charlebois, A Ave RPA C Unavailable Unavailable Charlebois, A Ave RPA C Unavailable Unavailable Charlebois, A Ave RPA C Unavailable Unavailable Charlebois, A Ave RPA C Unavailable Unavailable Charlebois, A Ave RPA C Unavailable Unavailable Charlebois, A Ave RPA C Unavailable Unavailable Charlebois, A Ave RPA C Unavailable Unavailable Charlebois, A Ave RPA C Unavailable Unavailable Charlebois, A Ave RPA C Unavailable Unavailable Charlebois, A Ave RPA C Unavailable Unavailable Charlebois, A Ave RPA C Unavailable Unavailable Charlebois, A Ave RPA C Unavailable Unavailable Charlebois, A Ave RPA C Unavailable Unavailable Charlebois, A Ave RPA C Unavailable Unavailable Charlebois, A Ave RPA C Unavailable Unavailable Charlebois, A Ave RPA C Unavailable Unavailable Charlebois, A Ave RPA C Unavailable Unavailable Charlebois, A Ave RPA C Unavailable Unavailable Charlebois, A Ave RPA C Unavailable Unavailable Charlebois, A Ave RPA C Unavailable Unavailable Charlebois, A Ave RPA C Unavailable Unavailable Charlebois, A Ave RPA C Unavailable Unavailable Charlebois, A Ave RPA C Unavailable Unavailable Charlebois, A Ave RPA C Unavailable Unavailable Charlebois, A Ave RPA C Unavailable Unavailable Charlebois, A Ave RPA C Unavailable Unavailable Charlebois, A Ave RPA C Unavailable Unavailable Charlebois, A Ave RPA C Unavailable Unavailable JILLIANMARIE MD Unavailable Unavailable JILLIANMARIE MD Unavailable Unavailable JILLIANMARIE MD Unavailable Unavailable JILLIANMARIE MD Unavailable Unavailable JILLIANMARIE MD Unavailable Unavailable JILLIANMARIE MD Unavailable Unavailable JILLIAN, MARIE RODRIGUEZ Unavailable Unavailable JILLIAN, MARIE RODRIGUEZ Unavailable Unavailable JILLIANMARIE MD Unavailable Unavailable JILLIANMARIE MD Unavailable Unavailable JILLIANMARIE MD Unavailable Unavailable JILLIAN, SALAZAR MD Unavailable Unavailable JILLIAN, SALAZAR MD Unavailable Unavailable JILLIAN, SALAZAR MD Unavailable Unavailable JILLIAN, SALAZAR MD Unavailable Unavailable JILLIAN, SALAZAR MD Unavailable Unavailable JILLIAN, SALAZAR MD Unavailable Unavailable JILLIAN, SALAZAR MD Unavailable Unavailable JILLIAN, SALAZAR MD Unavailable Unavailable JILLIAN, SALAZAR MD Unavailable Unavailable JILLIAN, SALAZAR MD Unavailable Unavailable JILLIAN, SALAZAR MD Unavailable Unavailable JILLIAN, SALAZAR MD Unavailable Unavailable JILLIAN, SALAZAR MD Unavailable Unavailable JILLIAN, SALAZAR MD Unavailable Unavailable JILLIAN, SALAZAR MD Unavailable Unavailable JILLIAN, SALAZAR MD Unavailable Unavailable JILLIAN, SALAZAR MD Unavailable Unavailable JILLIAN, SALAZAR MD Unavailable Unavailable JILLIAN, SALAZAR MD Unavailable Unavailable JILLIAN, SALAZAR MD Unavailable Unavailable JILLIAN, SALAZAR MD Unavailable Unavailable JILLIAN, SALAZAR MD Unavailable Unavailable JILLIAN, SALAZAR MD Unavailable Unavailable JILLIAN, SALAZAR MD Unavailable Unavailable JILLIAN, SALAZAR MD Unavailable Unavailable JILLIAN, SALAZAR MD Unavailable Unavailable JILLIAN, SALAZAR MD Unavailable Unavailable JILLIAN, SALAZAR MD Unavailable Unavailable JILLIAN, SALAZAR MD Unavailable Unavailable JILLIAN, SALAZAR MD Unavailable Unavailable JILLIAN, SALAZAR MD Unavailable Unavailable JILLIAN, SALAZAR MD Unavailable Unavailable JILLIAN, SALAZAR MD Unavailable Unavailable JILLIAN, SALAZAR MD Unavailable Unavailable JILLIAN, SALAZAR MD Unavailable Unavailable JILLIAN, SALAZAR MD Unavailable Unavailable JILLIAN, SALAZAR MD Unavailable Unavailable JILLIAN, SALAZAR MD Unavailable Unavailable JILLIAN, SALAZAR MD Unavailable Unavailable JILLIAN, SALAZAR MD Unavailable Unavailable JILLIAN, SALAZAR MD Unavailable Unavailable JILLIAN, SALAZAR MD Unavailable Unavailable JILLIAN, SALAZAR MD Unavailable Unavailable Re-disclosure Warning The records that you are about to access may contain information from federally-assisted alcohol or drug abuse programs. If such information is present, then the following federally mandated warning applies: This information has been disclosed to you from records protected by federal confidentiality rules (42 CFR part 2). The federal rules prohibit you from making any further disclosure of this information unless further disclosure is expressly permitted by the written consent of the person to whom it pertains or as otherwise permitted by 42 CFR part 2. A general authorization for the release of medical or other information is NOT sufficient for this purpose. The Federal rules restrict any use of the information to criminally investigate or prosecute any alcohol or drug abuse patient.The records that you are about to access may contain highly sensitive health information, the redisclosure of which is protected by Article 27-F of the [facility] Public Health law. If you continue you may have access to information: Regarding HIV / AIDS; Provided by facilities licensed or operated by the [facility] Office of Mental Health; or Provided by the [facility] Office for People With Developmental Disabilities. If such information is present, then the following [facility] mandated warning applies: This information has been disclosed to you from confidential records which are protected by state law. State law prohibits you from making any further disclosure of this information without the specific written consent of the person to whom it pertains, or as otherwise permitted by law. Any unauthorized further disclosure in violation of state law may result in a fine or shelter sentence or both. A general authorization for the release of medical or other information is NOT sufficient authorization for further disc losure. Allergies and Adverse Reactions Type Description Substance Reaction Status Data Source(s ) Drug allergy Morphine Sulfate Morphine Nausea/Vomiting Active eCW1 ([facility]) Propensity to adverse reactions MORPHINE Morphine Acti ve [facility] Family History Family Member Name Family Member Gender Family Member Status Date o f Status Description Data Source(s) Unknown Male Problem MEDENT ([facility]) Encounters Encounter Providers Location Date Indications Data Source(s ) Unknown [address] [facility] [place] [id number] 06/26/2020 12:00:00 AM EST eCW1 ([facility]) Outpatient [address] [facility] [id number] 06/09/2020 12:00:00 AM EST eCW1 ([facility]) Outpatient Attender: Berenice ADAM [email or web address] 2020 12:00:00 AM EST - 06/05/2020 08:11:56 AM EST [facility] Center Unknown [address] [facility] [place] [address] 05/05/2020 12:00:00 AM EST eCW1 ([facility]) Outpatient Attender: Diane MARTÍNEZ Main office - [facility] 04/22/2020 01:45:00 PM EST MEDENT ([facility]) Unknown [address] [facility] Y [address] 04/18/2020 12:00:00 AM EST eCW1 ([facility]) Unknown [address] [facility] Y [address] 04/18/2020 12:00:00 AM EST eCW1 ([facility]) Outpatient [address] [facility] Y [address] 04/11/2020 12:00:00 AM EST eCW1 ([facility]) Unknown [address] [facility] Y [address] 04/08/2020 12:00:00 AM EST eCW1 ([facility]) Unknown [address] [facility] Y [address] 03/20/2020 12:00:00 AM EDT eCW1 ([facility]) Unknown [address] [facility] Y [address] 03/17/2020 12:00:00 AM EDT eCW1 ([facility]) Unknown [address] [facility] Y [id number] 03/12/2020 12:00:00 AM EDT eCW1 ([facility]) Outpatient Attender: Diane Kohler [facility] 12/06/2019 11:15:00 AM EDT MEDENT ([facility] ) Outpatient Attender: KAIT DUMONT [facility] Office 10/29 09:15:00 AM EDT MEDENT ([facility] Outpatient [address] [facility] Y [address] 11/16/2019 12:00:00 AM EDT eCW1 ([facility]) Unknown [address] [facility] Y [address] 11/09/2019 12:00:00 AM EDT eCW1 ([facility]) Unknown [address] [facility] Y [address] 11/08/2019 12:00:00 AM EDT eCW1 ([facility]) Unknown [address] [facility] Y [address] 11/07/2019 12:00:00 AM EDT [facility]CW1 ([facility]) Unknown [address] [facility] [id number] 11/01/2019 12:00:00 AM EDT eCW1 ([facility]) [facility] [address] [place] [address] Y [address] 10/25/2019 12:00:00 AM EDT eCW1 ([facility]) [facility] Resident [address] [place] [id number] 10/16/2019 12:00:00 AM EDT eCW1 ([facility]) [address] [address] 10/08/2019 12:00:00 AM EDT eCW1 ([facility]) [address] [address] 10/02/2019 12:00:00 AM EDT eCW1 ([facility]) Outpatient Attender: MARIE WALSH MD [email or web address] 12:00:00 AM EDT - 09/21/2019 09:00:01 AM EDT [address] Y [address] 09/10/2019 12:00:00 AM EDT eCW1 ([facility]) Outpatient Attender: Diane Kohler [facility] 09/05/2019 09:15:00 AM EDT MEDENT ([facility]) Outpatient Attender: Ave Stahl/Sunshine/Tosin lujan/Courtney 08/30/2019 01:00:00 PM EDT MEDENT ([facility]) [address] [place] [address] 08/22/2019 12:00:00 AM EDT eCW1 ([facility]) [facility] Resident [address] [place] [id number] 07/25/2019 12:00:00 AM EST eCW1 ([facility]) [address] [address] 07/18/2019 12:00:00 AM EST eCW1 ([facility]) [facility] Resident [address] [place] [id number] 06/29/2019 12:00:00 AM EST eCW1 ([facility]) [facility] Center [address] [place] [phone] 06/27/2019 12:00:00 AM EST eCW1 ([facility]) [facility] Dermatology [address] [place] [phone] 06/25/2019 12:00:00 AM EST eCW1 ([facility]) [address] [address] 06/25/2019 12:00:00 AM EST eCW1 ([facility]) [address] [address] 06/21/2019 12:00:00 AM EST eCW1 ([facility]) [address] [address] 06/20/2019 12:00:00 AM EST eCW1 ([facility]) Outpatient Referrer: Haris Burleson MD 06/18/2019 07: 38:00 PM EST [facility] [address] [address] 06/15/2019 12:00:00 AM EST eCW1 ([facility]) [address] [place] [address] 06/11/2019 12:00:00 AM EST eCW1 ([facility]) [address] [address] 06/11/2019 12:00:00 AM EST eCW1 ([facility]) [address] [place] [address] 06/11/2019 12:00:00 AM EST eCW1 ([facility]) [facility] [address] [facility] [place] [address] 06/06/2019 12:00:00 AM EST eCW1 ([facility]) [address] [address] 06/04/2019 12:00:00 AM EST eCW1 ([facility]) [address] [address] 05/24/2019 12:00:00 AM EST eCW1 ([facility]) Immunizations Vaccine Date Status Description Data Source(s) influenza, recombinant, quadrIvalent,injectable, prese rvative free 04/11/2020 05:10:00 PM EST completed eCW1 ([facility]) influenza, recombinant, quadrIvalent,injectable, prese rvative free 04/11/2020 05:10:00 PM EST completed eCW1 ([facility]) influenza, recombinant, quadrIvalent,injectable, prese rvative free 04/11/2020 05:10:00 PM EST completed eCW1 ([facility]) influenza, recombinant, quadrIvalent,injectable, prese rvative free 04/11/2020 05:10:00 PM EST completed eCW1 ([facility]) influenza, recombinant, quadrIvalent,injectable, prese rvative free 04/11/2020 05:10:00 PM EST completed eCW1 ([facility]) influenza, recombinant, quadrIvalent,injectable, prese rvative free 04/11/2020 05:10:00 PM EST completed eCW1 ([facility]) influenza, recombinant, quadrIvalent,injectable, prese rvative free 06/15/2019 10:16:00 AM EST completed eCW1 ([facility]) influenza, recombinant, quadrIvalent,injectable, prese rvative free 06/15/2019 10:16:00 AM EST completed eCW1 ([facility]) influenza, recombinant, quadrIvalent,injectable, prese rvative free 06/15/2019 10:16:00 AM EST completed eCW1 ([facility]) influenza, recombinant, quadrIvalent,injectable, prese rvative free 06/15/2019 10:16:00 AM EST completed eCW1 ([facility]) influenza, recombinant, quadrIvalent,injectable, prese rvative free 06/15/2019 10:16:00 AM EST completed eCW1 ([facility]) influenza, recombinant, quadrIvalent,injectable, prese rvative free 06/15/2019 10:16:00 AM EST completed eCW1 ([facility]) influenza, recombinant, quadrIvalent,injectable, prese rvative free 06/15/2019 10:16:00 AM EST completed eCW1 ([facility]) influenza, recombinant, quadrIvalent,injectable, prese rvative free 06/15/2019 10:16:00 AM EST completed eCW1 ([facility]) influenza, recombinant, quadrIvalent,injectable, prese rvative free 06/15/2019 10:16:00 AM EST completed eCW1 ([facility]) influenza, recombinant, quadrIvalent,injectable, prese rvative free 06/15/2019 10:16:00 AM EST completed eCW1 ([facility]) influenza, recombinant, quadrIvalent,injectable, prese rvative free 06/15/2019 10:16:00 AM EST completed eCW1 ([facility]) influenza, recombinant, quadrIvalent,injectable, prese rvative free 06/15/2019 10:16:00 AM EST completed eCW1 ([facility]) influenza, recombinant, quadrIvalent,injectable, prese rvative free 06/15/2019 10:16:00 AM EST completed eCW1 ([facility]) influenza, recombinant, quadrIvalent,injectable, prese rvative free 06/15/2019 10:16:00 AM EST completed eCW1 ([facility]) influenza, recombinant, quadrIvalent,injectable, prese rvative free 06/15/2019 10:16:00 AM EST completed eCW1 ([facility]) influenza, recombinant, quadrIvalent,injectable, prese rvative free 06/15/2019 10:16:00 AM EST completed eCW1 ([facility]) Medications Medication Brand Name Start Date Product Form Dose Route Admi nistrative Instructions Pharmacy Instructions Status Indications Reaction Description Data Source(s) Acetic Acid 20 MG/ML Otic Solution Acetic Acid 2 % Acetic Ac id 2 % 06/09/2020 12:00:00 AM EST 5.0 {drops_into_affected_ear} ac tive Acetic Acid 2 % eCW1 ([facility]) Fluticasone Propionate 50 MCG/ACT Fluticasone Propionate 50 MCG/ACT 06/09/2020 12:00:00 AM EST 1.0 {spray_in_each_nostril} acti ve Fluticasone Propionate 50 MCG/ACT eCW1 ([facility]) Fluticasone Propionate 50 MCG/ACT Fluticasone Propionate 50 MCG/ACT 06/09/2020 12:00:00 AM EST 1.0 {spray_in_each_nostril} acti ve Fluticasone Propionate 50 MCG/ACT eCW1 ([facility]) Acetic Acid 20 MG/ML Otic Solution Acetic Acid 2 % Acetic Ac id 2 % 06/09/2020 12:00:00 AM EST 5.0 {drops_into_affected_ear} ac tive Acetic Acid 2 % eCW1 ([facility]) 24 HR Metformin hydrochloride 500 MG Ext ended Release Oral Tablet metFORMIN (GLUCOPHATE-XR) 500 MG 24 hr tablet metFORMIN (GLUCOPHATE-XR) 500 MG 24 hr tablet 06/03/2020 12:00:00 AM EST 1000 mg Oral active Take 1,000 mg by mouth 2 (two) times a day [facility] OneTouch Ultra 2 w/Device OneTouch Ultra 2 w/Device 04/11/2020 1 2:00:00 AM EST active OneTouch Ultra 2 w/Device eCW1 ([facility]) OneTouch Ultra 2 w/Device OneTouch Ultra 2 w/Device 04/11/2020 1 2:00:00 AM EST active OneTouch Ultra 2 w/Device eCW1 ([facility]) OneTouch Ultra 2 w/Device OneTouch Ultra 2 w/Device 04/11/2020 1 2:00:00 AM EST active OneTouch Ultra 2 w/Device eCW1 ([facility]) OneTouch Ultra 2 w/Device OneTouch Ultra 2 w/Device 04/11/2020 1 2:00:00 AM EST active OneTouch Ultra 2 w/Device eCW1 ([facility]) OneTouch Ultra 2 w/Device OneTouch Ultra 2 w/Device 04/11/2020 1 2:00:00 AM EST active OneTouch Ultra 2 w/Device eCW1 ([facility]) OneTouch Ultra 2 w/Device OneTouch Ultra 2 w/Device 04/11/2020 1 2:00:00 AM EST active OneTouch Ultra 2 w/Device eCW1 ([facility]) topiramate 200 MG Oral Tablet topiramate (TOPAMAX) 200 MG tablet topiramate (TOPAMAX) 200 MG tablet 03/17/2020 12:00:00 AM EDT 1 {tbl} Oral aborted Take 1 tablet by mouth daily [facility] rizatriptan 10 MG Disintegrating Oral Tablet Rizatriptan J Carlos zoate 02/11/2020 12:00:00 AM EDT active M EDENT ([facility], ) ammonium lactate 120 MG/ML Topical Cream Ammonium Lactate 11/22/2019 12:00:00 AM EDT active MED[facility] ([facility] Amlodipine 5 MG Oral Tablet amLODIPine (NORVASC) 5 MG tablet amLODIPine (NORVASC) 5 MG tablet 11/15/2019 12:00:00 AM EDT active TAKE ONE TABLET BY MOUTH @9AM [facility] MetFORMIN HCl ER 500 MG MetFORMIN HCl ER 500 MG 11/09/2019 12:00:00 A M EDT active MetFORMIN HCl ER 500 MG eCW1 ([facility]) 24 HR Metformin hydrochloride 500 MG Ext ended Release Oral Tablet MetFORMIN HCl ER 500 MG MetFORMIN HCl ER 500 MG 11/09/2019 12:00:00 AM EDT active MetFORMIN HCl ER 500 MG eCW1 ([facility]) MetFORMIN HCl ER 500 MG MetFORMIN HCl ER 500 MG 11/09/2019 12:00:00 A M EDT active MetFORMIN HCl ER 500 MG eCW1 ([facility]) MetFORMIN HCl ER 500 MG MetFORMIN HCl ER 500 MG 11/09/2019 12:00:00 A M EDT active MetFORMIN HCl ER 500 MG eCW1 ([facility]) MetFORMIN HCl ER 500 MG MetFORMIN HCl ER 500 MG 11/09/2019 12:00:00 A M EDT active MetFORMIN HCl ER 500 MG eCW1 ([facility]) MetFORMIN HCl ER 500 MG MetFORMIN HCl ER 500 MG 11/09/2019 12:00:00 A M EDT active MetFORMIN HCl ER 500 MG eCW1 ([facility]) MetFORMIN HCl ER 500 MG MetFORMIN HCl ER 500 MG 11/09/2019 12:00:00 A M EDT active MetFORMIN HCl ER 500 MG eCW1 ([facility]) MetFORMIN HCl ER 500 MG MetFORMIN HCl ER 500 MG 11/09/2019 12:00:00 A M EDT active MetFORMIN HCl ER 500 MG eCW1 ([facility]) Cpap Mask And Supplies 09/05/2019 12:00:00 AM EDT active MEDENT ([facility]) Lisinopril 20 MG Oral Tablet lisinopril (PRINIVIL,ZEST RIL) 20 MG tablet lisinopril (PRINIVIL,ZESTRIL) 20 MG tablet 08/29/2019 12:00:00 AM EDT active TAKE TWO TABLETS BY MOUTH @9AM [facility] atorvastatin 40 MG Oral Tablet atorvastatin (LIPITOR) 40 MG tablet atorvastatin (LIPITOR) 40 MG tablet 06/04/2019 12:00:00 AM EST 40 mg Oral active Take 40 mg by mouth daily [facility] tizanidine 2 MG Oral Tablet tiZANidine (ZANAFLEX) 2 MG tablet tiZANidine (ZANAFLEX) 2 MG tablet 06/04/2019 12:00:00 AM EST 2 mg Oral active Take 2 mg by mouth every 6 (six) hours as needed [facility] gabapentin 600 MG Oral Tablet gabapentin (NEURONTIN) 6 00 MG tablet gabapentin (NEURONTIN) 600 MG tablet 06/04/2019 12:00:00 AM EST 600 mg Oral active Take 600 mg by mouth 3 (three) times a day [facility] meloxicam 15 MG Oral Tablet meloxicam (MOBIC) 15 MG ta blet meloxicam (MOBIC) 15 MG tablet 06/04/2019 12:00:00 AM EST 15 mg Oral aborted Take 15 mg by mouth daily [facility] Omeprazole 40 MG Delayed Release Oral Ca psule omeprazole (PRILOSEC) 40 MG capsule omeprazole (PRILOSEC) 40 MG capsule 06/04/2019 12:00:00 AM EST 40 mg Oral active Take 40 mg by mouth daily [facility] latanoprost 0.05 MG/ML Ophthalmic Soluti on latanoprost (XALATAN) 0.005 % ophthalmic solution latanoprost (XALATAN) 0.005 % ophthalmic solution 10/2019 12:00:00 AM EST active S [facility] Betamethasone 0.0005 MG/MG Augmented Top ical Ointment betamethasone, augmented, (DIPROLENE) 0.05 % ointment betamethasone, augmented, (DIPROLENE) 0. 05 % ointment 06/01/2019 12:00:00 AM EST active APPLY TO THE AFFECTED AREA(S) ON BODY AND HANDS EVERY EVENING [facility] 0.5 ML dulaglutide 3 MG/ML Auto-Injector [Trulicity] TRULICITY 1.5 MG/0.5ML SOPN TRULICITY 1.5 MG/0.5ML SOPN 05/25/2019 12:00:00 AM EST active INJECT SUBCUTANEOUSLY DIRECTED ONCE A WEEK [facility] magnesium citrate 58.2 MG/ML Oral Solution Magnesium Citrate 03/08/2019 12:00:00 AM EDT completed MEDENT ([facility]) Suprep Bowel Prep Kit Suprep Bowel Prep Kit 03/08/2019 12:00:00 AM EDT completed MEDENT ([facility]) Metformin hydrochloride 1000 MG Oral Tab let metFORMIN (GLUCOPHAGE) 1000 MG tablet metFORMIN (GLUCOPHAGE) 1000 MG tablet 11/27/2016 12:00:00 AM EDT 1000 mg Oral aborted Take 1 tab let (1,000 mg total) by mouth 2 (two) times a day with meals [facility] Cholecalciferol 2000 UNT Oral Capsule Ch olecalciferol (VITAMIN D) 50 MCG (1999 UT) CAPS Cholecalciferol (VITAMIN D) 50 MCG (1999 UT) CAPS 11/27 12:00:00 AM EDT aborted VITAMIN D 2000 U NIT CAPS [facility] Vitamins-Lipotropics (B-STRESS) CAPS [id number] aborted B- STRESS CAPS [facility] Calcium Citrate-Vitamin D (CALCIUM + D PO) 1 {tbl} Oral aborted Take 1 tablet by mouth daily [facility] FERROUS SULFATE PO 1 {tbl} Oral aborted Take 1 tablet by mouth daily [facility] fluticasone (FLONASE) 50 MCG/ACT nasal spray [id number] aborted FLONASE 50 MCG/ACT NASAL SUSPENSION [facility] Clobetasol Propionate 0.5 MG/ML Topical Cream clobetasol (TEMOVATE) 0.05 % cream clobetasol (TEMOVATE) 0.05 % cream abo rted CLOBETASOL PROPIONATE 0.05 % CREA [facility] Ascorbic Acid 60 MG / Beta Carotene 5000 UNT / Copper Sulfate 40 MG / dl-alpha tocopheryl acetate 30 UNT / Sodium Selenite 0.04 MG / Zinc Oxide 40 MG Oral Tablet Multiple Vitamins-Minerals (MULTIVITAMIN WOMEN) TABS Multiple Vitamins- Minerals (MULTIVITAMIN WOMEN) TABS abo rted MULTIVITAMIN WOMEN TABS [facility] Insurance Providers Payer name Policy type / Coverage type Policy ID Covered green party ID Covered green party's relationship to marques Policy Marques Plan Information [facility] [id number] SP [id number] [facility] [id number] [facility] MEDICAID [id number] 1 [facility] [id number] Michelle [id number] 100 [facility] MEDICAID [id number] Michelle [id number] 12 [facility] O [id number] S [id number] [facility] [id number] SP [id number] ANSI-Medicaid [id number] ANSI-Medicaid [id number] ANSI-Not a Secondary Insurance [id number] ANSI-Not a Secondary Insurance [id number] ANSI-Medicaid [id number] ANSI-Medicaid [id number] ANSI-Medicaid [id number] ANSI-Not a Secondary Insurance [id number] ANSI-Medicaid [id number] ANSI-Not a Secondary Insurance [id number] ANSI-Medicaid [id number] ANSI-Medicaid [id number] ANSI-Medicaid [id number] ANSI-Not a Secondary Insurance [id number] ANSI-Medicaid [id number] ANSI-Medicaid [id number] ANSI-Not a Secondary Insurance [id number] ANSI-Medicaid [id number] ANSI-Medicaid [id number] ANSI-Medicaid [id number] ANSI-Not a Secondary Insurance [id number] MVP Health Plan Commercial [id number] Self [id number] [facility] Commercial [id number] Self [id number] Medicaid Medicaid [id number] Self [id number] ANSI-Not a Secondary Insurance [id number] ANSI-Medicaid [id number] ANSI-Medicaid [id number] ANSI-Not a Secondary Insurance [id number] ANSI-Medicaid [id number] ANSI-Medicaid [id number] ANSI-Medicaid [id number] ANSI-Not a Secondary Insurance [id number] ANSI-Medicaid [id number] ANSI-Medicaid [id number] ANSI-Medicaid [id number] ANSI-Not a Secondary Insurance [id number] ANSI-Medicaid [id number] ANSI-Not a Secondary Insurance [id number] ANSI-Medicaid [id number] ANSI-Medicaid [id number] ANSI-Medicaid [id number] ANSI-Not a Secondary Insurance [id number] [id number]-[id number] MVP Medicaid Commercial [id number] Self [id number] [facility] Community Plan Medigap Part B [id number] Self [id number] ANSI-Medicaid [id number] ANSI-Not a Secondary Insurance [id number] ANSI-Medicaid [id number] ANSI-Not a Secondary Insurance [id number] ANSI-Medicaid [id number] ANSI-Medicaid [id number] ANSI-Not a Secondary Insurance [id number] ANSI-Medicaid [id number] ANSI-Medicaid [id number] ANSI-Not a Secondary Insurance [id number]-9hgs-urtn-[id number] ANSI-Medicaid [id number] ANSI-Medicaid [id number] ANSI-Medicaid [id number] ANSI-Medicaid [id number] ANSI-Not a Secondary Insurance [id number] ANSI-Medicaid [id number] ANSI-Not a Secondary Insurance [id number] ANSI-Medicaid [id number] ANSI-Medicaid [id number] ANSI-Not a Secondary Insurance [id number]-s93i-gtd0l [id number]-[id number]-[id number] ANSI-Medicaid [id number] MVP Medicaid Commercial [id number] Self [id number] ANSI-Medicaid [id number] ANSI-Medicaid [id number] ANSI-Not a Secondary Insurance [id number] [id number] [facility] COMMUNITY PLAN [facility] [id number] SP [id number] Medicaid Medicaid [id number] Self [id number] Community Plan - [facility] Commercial [id number] Self [id number] ANSI-Medicaid [id number] ANSI-Medicaid [id number] ANSI-Medicaid [id number] ANSI-Medicaid [id number] ANSI-Medicaid [id number] ANSI-Medicaid [id number] ANSI-Medicaid [id number] ANSI-Medicaid [id number] ANSI-Medicaid [id number] ANSI-Medicaid [id number] [facility] Community Plan Commercial [id number] Self [id number] ANSI-Medicaid [id number] ANSI-Medicaid [id number] ANSI-Medicaid [id number] ANSI-Medicaid [id number] ANSI-Medicaid [id number] ANSI-Medicaid [id number] ANSI-Medicaid [id number] ANSI-Medicaid [id number] [facility] [id number] SP [id number] ANSI-Medicaid [id number] ANSI-Medicaid [id number] [facility] O [id number] S [id number] ANSI-Medicaid [id number] ANSI-Medicaid [id number] ANSI-Medicaid [id number] ANSI-Medicaid [id number] ANSI-Medicaid [id number] ANSI-Medicaid [id number] ANSI-Medicaid [id number] ANSI-Medicaid [id number] ANSI-Medicaid [id number] ANSI-Medicaid [id number] [facility] COMMUNITY PLAN MCDO [id number] SP [id number] Medicaid Medicaid [id number] Self [id number] Medicaid Medicaid [id number] Self [id number] ANSI-Medicaid [id number] ANSI-Medicaid [id number] [facility] Community Plan Commercial [id number] Self [id number] ANSI-Medicaid [id number] ANSI-Medicaid [id number] ANSI-Medicaid [id number] ANSI-Medicaid [id number] ANS-Medicaid [id number] ANSI-Medicaid [id number] [facility] Community Plan Commercial [id number] Self [id number] [facility] Community Plan Commercial [id number] Self [id number] Medicaid Medicaid [id number] Self [id number] Medicaid Medicaid [id number] Self [id number] Medicaid Medicaid [id number] Self [id number] Medicaid Medicaid [id number] Self [id number] Medicaid Medicaid [id number] Self [id number] [facility] O [id number] S [id number] [facility] MEDICAID PI PI Medicaid Medicaid [id number] Self [id number] MEDICAID [id number] SP [id number] MEDICAID [id number] SP [id number] Medicaid Medigap Part B [id number] Self [id number] Community Plan - [facility] Commercial [id number] Self [id number] UNHC COMMUNITY PLAN MCDO [id number] SP [id number] Community Plan - [facility] Commercial Self UNHC COMMUNITY PLAN MCDO [id number] SP [id number] [facility] Commercial Self HMO BLUE [id number] SP [id number] [facility] MEDICAID JOSE HMO [id number] S [id number] BCBS [facility] JOSE HMO [id number] S [id number] BLUE CROSS BILLS PLAN [id number] SP [id number] BCBS OF [place]AT[place] 306/806 [id number] SP [id number] Problems, Conditions, and Diagnoses Code Display Name Description Problem Type Effective Dates Data Source(s) J30.0 0339499 Vasomotor rhinitis Problem 06/09/2020 12:00: 00 AM EST eCW1 ([facility]) J30.9 [id number] Allergic rhinitis, unspecified s easonality, unspecified trigger Problem 06/09/2020 12:00:00 AM EST eCW1 ([facility]) K22.719 [id number] Becerra's esophagus with dyspla bishop, unspecified Problem 10/16/2019 12:00:00 AM EDT eCW1 ([facility]) K22.719 [id number] Becerra's esophagus with dyspla bishop, unspecified Problem 10/16/2019 12:00:00 AM EDT eCW1 ([facility]) R06.02 Shortness of breath Shortness of breath [id number] 06/08/2019 12:00:00 AM [facility] G43.909 Migraine headache Migraine headache [id number] 06/08/2019 12:00:00 AM [facility] E78.5 Hyperlipidemia Hyperlipidemia [id number] 06/08/2019 12:00: 00 AM [facility] E11.9 Diabetes mellitus, type II Diabetes mellitus, type II [id number] 06/08/2019 12:00:00 AM [facility] I10 Benign essential hypertension Benign essential hyperte nsion [id number] 06/08/2019 12:00:00 AM [facility] M19.90 Arthritis Arthritis [id number] 06/08/2019 12:00:00 AM ES T [facility] R94.31 Abnormal electrocardiogram Abnormal electrocardiogram [id number] 06/08/2019 12:00:00 AM [facility] 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 Diagnosis 06/04/2020 08:26:24 AM [facility] E11.9 Type 2 diabetes mellitus without complic ations Type 2 diabetes mellitus without complic Diagnosis 06/04/2020 08:26:24 AM [facility] I10 Essential (primary) hypertension Essential (primary) h ypertension Diagnosis 06/04/2020 08:26:24 AM EST [facility] E78.5 Hyperlipidemia, unspecified Hyperlipidemia, unspecifie d Diagnosis 06/04/2020 08:26:24 AM [facility] I42.9 Cardiomyopathy, unspecified Cardiomyopathy, unspecifie d Diagnosis 06/04/2020 08:26:24 AM [facility] R06.02 Shortness of breath Shortness of breath Diagnosis 0 06/04/2020 08:26:24 AM [facility] G43.809 Other migraine, not intractable, without status migrainosus Other migraine, not intractable, without Diagnosis 09/20/2019 02:52:22 PM ED T [facility] Surgeries/Procedures Procedure Description Date Indications Data Source(s) TROPONIN QUANTITATIVE TROPONIN I Routine 04/17/2020 04/17/2020 12:00:00 AM EST [facility] Immunization: Flublok Quadrivalent (18 years & older) 0.5mL IM (Influenza) 04/11/2020 12:00:00 AM EST eCW1 ([facility]) Endoscopy Upper GI Biopsy 10/23/2019 12:00:00 AM EDT [facility] ([facility], ) RIV4 VACC RECOMBINANT DNA IM 06/15/2019 12:00:00 AM ES T eCW1 ([facility]) IMMUNIZATION ADMIN 06/15/2019 12:00:00 AM EST eCW1 ([facility]) MED NUTRITION INDIV SUBSEQ 06/11/2019 12:00:00 AM EST eCW1 ([facility]) PSYTX W PT 45 MINUTES 06/11/2019 12:00:00 AM EST eCW1 ([facility]) Results ID Date Data Source [id number] 10/23/2019 01:45:00 PM EDT [facility] Name Value Range Interpretation Code Description Data Madelin rce(s) Supporting Document(s) Surgical pathology study Laboratory test result [facility] ([facility], ) FINAL DIAGNOSIS A - Esophagus, biopsy: Squamocolumnar junction mucosa with mild chronic inflammation and reactive changes. No intestinal metaplasia is seen. B - Esophageal inlet patch, biopsy: Squamocolumnar junction mucosa with chronic inflammation and reactive changes. Separate fragment of columnar mucosa (cardia type) with mild inflammation noted. No intestinal metaplasia seen. 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 All in one. B - Received in formalin labeled "biopsy esophageal inlet patch" consists of two fragments of tissue, 0.2 x 0.2 x 0.1 cm in aggregate. All in one. -OA 10/24/2019 - 1226 Signed NORRIS CALL MD 10/24/2019 1228 ID Date Data Source [id number] 10/20/2019 08:40:00 AM EDT [facility] Name Value Range Interpretation Code Description Data Madelin rce(s) Supporting Document(s) SARS CORONAVIRUS 2 RNA [facility] This lab was ordered by [facility] and reported by [facility]. ID Date Data Source [id number] 07/12/2019 12:00:00 AM EST eCW1 [facility] Name Value Range Interpretation Code Description Data Madelin rce(s) Supporting Document(s) Hemoglobin A1c/Hemoglobin.total in Blood 5.2 HEMOGLOBIN A1c eCW1 ([facility]) Procedure Social History Code Duration Value Status Description Data Source(s ) Smoking 06/20/2020 12:00:00 AM EST Never Smoker completed Never S moker eCW1 ([facility]) Smoking 06/09/2020 12:00:00 AM EST Never Smoker completed Never S moker eCW1 ([facility]) Alcohol intake 06/04/2020 12:00:00 AM EST No completed [facility] Smoking 06/04/2020 12:00:00 AM EST Never smoker completed Never s moker [facility] Smoking 05/05/2020 12:00:00 AM EST Never Smoker completed Never S moker eCW1 ([facility]) Smoking 05/05/2020 12:00:00 AM EST Never Smoker completed Never S moker eCW1 ([facility]) Smoking 04/11/2020 12:00:00 AM EST Never Smoker completed Never S moker eCW1 ([facility]) Smoking 04/11/2020 12:00:00 AM EST Never Smoker completed Never S moker eCW1 ([facility]) Smoking 02/27/2020 12:00:00 AM EDT Never Smoker completed Never S moker eCW1 ([facility]) Smoking 02/27/2020 12:00:00 AM EDT Never Smoker completed Never S moker eCW1 ([facility]) Smoking 02/27/2020 12:00:00 AM EDT Never Smoker completed Never S moker eCW1 ([facility]) Smoking 02/27/2020 12:00:00 AM EDT Never Smoker completed Never S moker eCW1 ([facility]) Smoking 02/27/2020 12:00:00 AM EDT Never Smoker completed Never S moker eCW1 ([facility]) Smoking 10/16/2019 12:00:00 AM EDT Never Smoker completed Never S moker eCW1 ([facility]) Smoking 10/16/2019 12:00:00 AM EDT Never Smoker completed Never S moker eCW1 ([facility]) Smoking 10/16/2019 12:00:00 AM EDT Never Smoker completed Never S moker eCW1 ([facility]) Smoking 10/16/2019 12:00:00 AM EDT Never Smoker completed Never S moker eCW1 ([facility]) Vital Signs ID Date Data Source UNK Name Value Range Interpretation Code Description Data Source(s) Diastolic blood pressure 80 mm[Hg] 80 mm[Hg] eCW1 ([facility]) Systolic blood pressure 150 mm[Hg] 150 mm[Hg] e CW1 ([facility]) Body temperature 97.2 [degF] 97.2 [degF] eCW1 ( [facility]) Respiratory rate 17 /min 17 /min eCW1 ([facility]) Heart rate /min eCW1 ([facility]) Body mass index (BMI) [Ratio] 27.56 kg/m2 27.56 kg/m2 eCW1 ([facility]) Body height 67 [in_i] 67 [in_i] eCW1 [facility] Body weight 176 [lb_av] 176 [lb_av] eCW1 ([facility]) Diastolic blood pressure 62 mm[Hg] 62 mm[Hg] eCW1 ([facility]) Systolic blood pressure 122 mm[Hg] 122 mm[Hg] e CW1 ([facility]) Body temperature 98.1 [degF] 98.1 [degF] eCW1 ( [facility]) Respiratory rate 18 /min 18 /min eCW1 ([facility]) Heart rate 106 /min 106 /min eCW1 ([facility]) Body mass index (BMI) [Ratio] 26.31 kg/m2 26.31 kg/m2 W1 ([facility]) Body height 67 [in_i] 67 [in_i] eCW1 ([facility]) Body weight 168 [lb_av] 168 [lb_av] eCW1 ([facility]) Body mass index (BMI) [Ratio] 27.4 kg/m2 27.4 k g/m2 MEDENT ([facility] Heart rate 95 /min 95 /min MEDENT ([facility] Diastolic blood pressure 82 mm[Hg] 82 mm[Hg] MEDENT ([facility] Systolic blood pressure 140 mm[Hg] 140 mm[Hg] M EDENT ([facility] Body weight 175.00 [lb_av] 175.00 [lb_av] MEDEN T ([facility] Body height 67 [in_i] 67 [in_i] MEDENT ([facility] 5'7" Diastolic blood pressure 82 mm[Hg] 82 mm[Hg] eCW1 ([facility]) Systolic blood pressure 128 mm[Hg] 128 mm[Hg] e CW1 ([facility]) Body temperature 98.5 [degF] 98.5 [degF] eCW1 ( [facility]) Respiratory rate 20 /min 20 /min eCW1 ([facility]) Heart rate 90 /min 90 /min eCW1 ([facility]) Body mass index (BMI) [Ratio] 27.94 kg/m2 27.94 kg/m2 eCW1 ([facility]) Body height 67 [in_i] 67 [in_i] eCW1 ([facility]) Body weight 178.4 [lb_av] 178.4 [lb_av] eCW1 ([facility]) Diastolic blood pressure 82 mm[Hg] 82 mm[Hg] eCW1 ([facility]) Systolic blood pressure 140 mm[Hg] 140 mm[Hg] e CW1 ([facility]) Body temperature 97.4 [degF] 97.4 [degF] eCW1 ( [facility]) Respiratory rate 20 /min 20 /min eCW1 ([facility]) Heart rate 95 /min 95 /min eCW1 ([facility]) Body mass index (BMI) [Ratio] 27.53 kg/m2 27.53 kg/m2 W1 ([facility]) Body height 67 [in_us] 67 [in_us] eCW1 ([facility]) Body weight Measured 175.8 [lb_av] 175.8 [lb_av ] eCW1 ([facility]) Body weight 74.844 kg 74.844 kg MEDENT ([facility], ) Body mass index (BMI) [Ratio] 25.8 kg/m2 25.8 k g/m2 MEDENT ([facility], ) Body weight 165.00 [lb_av] 165.00 [lb_av] MEDEN T ([facility], ) Body height 67 [in_i] 67 [in_i] MEDANGEL ([facility], ) 5'7" Diastolic blood pressure 74 mm[Hg] 74 mm[Hg] MEDENT ([facility], ) Systolic blood pressure 118 mm[Hg] 118 mm[Hg] M EDENT ([facility], ) Diastolic blood pressure 70 mm[Hg] 70 mm[Hg] eCW1 ([facility]) Systolic blood pressure 120 mm[Hg] 120 mm[Hg] e CW1 ([facility]) Body temperature 98.3 [degF] 98.3 [degF] eCW1 ( [facility]) Respiratory rate 20 /min 20 /min eCW1 ([facility]) Heart rate 82 /min 82 /min eCW1 ([facility]) Body mass index (BMI) [Ratio] 26.00 kg/m2 26.00 kg/m2 eCW1 ([facility]) Body height 67 [in_us] 67 [in_us] eCW1 ([facility]) Body weight Measured 166 [lb_av] 166 [lb_av] eC W1 ([facility]) Body mass index (BMI) [Ratio] 26.69 kg/m2 26.69 kg/m2 eCW1 ([facility]) Body height 67 [in_us] 67 [in_us] eCW1 ([facility]) Body weight Measured 170.4 [lb_av] 170.4 [lb_av ] eCW1 ([facility]) Patient Treatment Plan of Care Planned Activity Planned Date Details Description Data Source (s) Fluticasone Propionate 50 MCG/ACT 06/09/2020 12:00:00 AM EST eCW1 ([facility]) Acetic Acid 20 MG/ML Otic Solution 06/09/2020 12:00:00 AM EST eCW1 ([facility]) 24 HR Metformin hydrochloride 500 MG Extended Release Oral Tablet 06/03/2020 12:00:00 AM EST [facility] OneTouch Ultra 2 w/Device 04/11/2020 12:00:00 AM EST eCW1 ([facility]) OneTouch Ultra 2 w/Device 04/11/2020 12:00:00 AM EST eCW1 ([facility]) topiramate 200 MG Oral Tablet 03/17/2020 12:00:00 AM EDT [facility] Amlodipine 5 MG Oral Tablet 11/15/2019 12:00:00 AM EDT [facility] MetFORMIN HCl ER 500 MG 11/09/2019 12:00:00 AM EDT eCW1 ([facility]) MetFORMIN HCl ER 500 MG 11/09/2019 12:00:00 AM EDT eCW1 ([facility]) MetFORMIN HCl ER 500 MG 11/09/2019 12:00:00 AM EDT eCW1 ([facility]) Lisinopril 20 MG Oral Tablet 08/29/2019 12:00:00 AM EDT [facility] tizanidine 2 MG Oral Tablet 06/04/2019 12:00:00 AM EST [facility] Omeprazole 40 MG Delayed Release Oral Capsule 06/04/2019 12:00:00 A M EST [facility] meloxicam 15 MG Oral Tablet 06/04/2019 12:00:00 AM EST [facility] latanoprost 0.05 MG/ML Ophthalmic Solution 06/04/2019 12:00:[address] [facility] gabapentin 600 MG Oral Tablet 06/04/2019 12:00:00 AM EST [facility] atorvastatin 40 MG Oral Tablet 06/04/2019 12:00:00 AM EST [facility] Betamethasone 0.0005 MG/MG Augmented Topical Ointment 06/01/2019 12:00:00 AM EST [facility] 0.5 ML dulaglutide 3 MG/ML Auto-Injector [Trulicity] 12:00:00 AM EST [facility] Metformin hydrochloride 1000 MG Oral Tablet 11/27/2016 12:00:00 AM EDT [facility] Cholecalciferol 2000 UNT Oral Capsule 12/13/2014 12:00:00 AM EDT [facility] Vitamins-Lipotropics (B-STRESS) CAPS [facility] Ascorbic Acid 60 MG / Beta Carotene 5000 UNT / Copper Sulfate 40 MG / dl-alpha tocopheryl acetate 30 UNT / Sodium Selenite 0.04 MG / Zinc Oxide 40 MG Oral Tablet [facility] fluticasone (FLONASE) 50 MCG/ACT nasal spray [facility] Clobetasol Propionate 0.5 MG/ML Topical Cream [facility] Calcium Citrate-Vitamin D (CALCIUM + D PO) [facility] FERROUS SULFATE PO [facility]
--- OUTSIDE RECORDS SUMMARY | 2020-07-21 16:05 | CCD ---
Author Author [facility] Organization [facility] Address Unknown Phone Unavailable Care Team Providers Care Pharmacy Laboratory Technician Name Role Phone Kocan, J Berenice BUTTON MAKER Unavailable Unavailable Kocan, J Berenice BUTTON MAKER Unavailable Unavailable Kocan, J Berenice BUTTON MAKER Unavailable Unavailable Kocan, J Berenice BUTTON MAKER Unavailable Unavailable Kocan, J Breenice BUTTON MAKER Unavailable Unavailable Kocan, J Berenice BUTTON MAKER Unavailable Unavailable Kocan, J Berenice BUTTON MAKER Unavailable Unavailable Kocan, J Berenice BUTTON MAKER Unavailable Unavailable Kocan, J Berenice BUTTON MAKER Unavailable Unavailable Kocan, J Berenice BUTTON MAKER Unavailable Unavailable Kocan, J Berenice BUTTON MAKER Unavailable Unavailable Kocan, J Berenice BUTTON MAKER Unavailable Unavailable Kocan, J Berenice BUTTON MAKER Unavailable Unavailable Robbi DUMONT DPM Unavailable Unavailable [...] Unavailable Unavailable Haris Burleson MD Unavailable Unavailable VanHaris grande MD Unavailable Unavailable Vankristineam, Haris Lovelace MD Unavailable Unavailable VaneenHaris ac MD Unavailable Unavailable Vankristineam, Haris Lovelace MD Unavailable Unavailable Haris Burleson [...] Unavailable Unavailable Haris Burleson MD Unavailable Unavailable Vaneenenaam, Haris Lovelace MD [...] Unavailable JILLIAN, MARIE RODRIGUEZ Unavailable Unavailable JILLIAN, SALAZAR MD Unavailable Unavailable [...] Unavailable JILLIAN, SALAZAR MD Unavailable Unavailable JILLIAN, ASLAZAR MD Unavailable Unavailable JILLIAN, SALAZAR MD Unavailable [...] is protected by Article 27-F of the [facility] Public Health law. If you continue you may have access to information: Regarding HIV / AIDS; Provided by facilities licensed or operated by the [facility] Office of Mental Health; or Provided by the [facility] Office for People With Developmental Disabilities. If such information is present, then the following [facility] mandated warning applies: This information has been [...] law may result in a fine or long term sentence or both. A general authorization for the release of medical or other information is NOT sufficient authorization for further disc losure. Allergies and Adverse Reactions Type Description Substance Reaction Status Data Source(s ) Drug allergy Morphine Sulfate Morphine Nausea/Vomiting Active eCW1 ([facility]) Propensity to adverse reactions MORPHINE Morphine Acti ve [facility] Family History Family Member Name Family Member Gender Family Member Status Date o f Status Description Data Source(s) Unknown Male Problem MEDENT ([facility]) Encounters Encounter Providers Location Date Indications Data Source(s ) Unknown [address] [facility] [address] [place] [address] 06/26/2020 12:00:00 AM EST eCW1 ([facility]) Outpatient [address] [facility] [address] 06/09/2020 12:00:00 AM EST eCW1 ([facility]) Outpatient Attender: Berenice ADAM SJP.IVIS-SJP.IVIS 2020 12:00:00 AM EST - 06/05/2020 08:11:56 AM EST [facility] Unknown [address] [facility] [address] [place] [address] 05/05/2020 12:00:00 AM EST eCW1 ([facility]) Outpatient Attender: Diane MARTÍNEZ Main office [facility] 04/22/2020 01:45:00 PM EST MEDENT ([facility]) Unknown [address] [facility] Y [address] 04/18/2020 12:00:00 AM EST eCW1 ([facility]) Unknown [address] [facility] [place] [address] 04/18/2020 12:00:00 AM EST eCW1 ([facility]) Outpatient [address] [facility] [place] [address] 04/11/2020 12:00:00 AM EST eCW1 ([facility]) Unknown [address] [facility] [place] [address] 04/08/2020 12:00:00 AM EST eCW1 ([facility]) Unknown [address] [facility] Y [address] 03/20/2020 12:00:00 AM EDT eCW1 ([facility]) Unknown [address] [facility] Y [address] 03/17/2020 12:00:00 AM EDT eCW1 ([facility]) Unknown [address] [facility] [place] [address] 03/12/2020 12:00:00 AM EDT eCW1 ([facility]) Outpatient Attender: Diane Kohler [facility] 12/06/2019 11:15:00 AM EDT MEDENT ([facility] ) Outpatient Attender: KAIT DUMONT [facility] Office 10/29 09:15:00 AM EDT MEDENT ([facility] Outpatient [address] [facility] Y [address] 11/16/2019 12:00:00 AM EDT eCW1 ([facility]) Unknown [address] [facility] Y [address] 11/09/2019 12:00:00 AM EDT eCW1 ([facility]) Unknown [address] [facility] Y [address] 11/08/2019 12:00:00 AM EDT eCW1 ([facility]) Unknown [address] [facility] [place] [address] 11/07/2019 12:00:00 AM EDT eCW1 ([facility]) Unknown [address] [facility] [place] [address] 11/01/2019 12:00:00 AM EDT eCW1 ([facility]) [facility] [address] [place] [address], [place] [address] 10/25/2019 12:00:00 AM EDT eCW1 ([facility]) [facility] GME Resident [address] [place] [address] 10/16/2019 12:00:00 AM EDT eCW1 ([facility]) [address] [address] 10/08/2019 12:00:00 AM EDT eCW1 ([facility]) [address] [place] [address] 10/02/2019 12:00:00 AM EDT eCW1 ([facility]) Outpatient Attender: AMRIE WALSH MD SJP-SJP.GVR 0 12:00:00 AM EDT - 09/21/2019 09:00:01 AM EDT [address] Y [address] 09/10/2019 12:00:00 AM EDT eCW1 ([facility]) Outpatient Attender: Diane Kohler [facility] 09/05/2019 09:15:00 AM EDT MEDENT ([facility]) Outpatient Attender: Ave Stahl/Sunshine/Tosin lujan/Courtney 08/30/2019 01:00:00 PM EDT MEDENT ([facility] SAMIR Ortega) [address] Y [address] 08/22/2019 12:00:00 AM EDT eCW1 ([facility]) [facility] GME Resident [address] [place] [address] 07/25/2019 12:00:00 AM EST eCW1 ([facility]) [facility] [address] [place] [address], [place] [address] 07/18/2019 12:00:00 AM EST eCW1 ([facility]) [facility] Resident [address] [place] [phone] 06/29/2019 12:00:00 AM EST eCW1 ([facility]) [facility] [address] [place] [address] 06/27/2019 12:00:00 AM EST eCW1 ([facility]) [facility] Dermatology [address] [place] [address] 06/25/2019 12:00:00 AM EST eCW1 ([facility]) [address] [address] 06/25/2019 12:00:00 AM EST eCW1 ([facility]) [address] [address] 06/21/2019 12:00:00 AM EST eCW1 ([facility]) [address] [address] 06/20/2019 12:00:00 AM EST eCW1 ([facility]) Outpatient Referrer: Haris Burleson MD 06/18/2019 07: 38:00 PM EST [facility] [address] [address] 06/15/2019 12:00:00 AM EST eCW1 ([facility]) [address] [place] [address] 06/11/2019 12:00:00 AM EST eCW1 ([facility]) [address] [address] 06/11/2019 12:00:00 AM EST eCW1 ([facility]) [address] [place] [address] 06/11/2019 12:00:00 AM EST eCW1 ([facility]) [facility] [place] [address] [facility] [place] [address] 06/06/2019 12:00:00 AM EST eCW1 ([facility]) [facility] [address] [place] [address] 06/04/2019 12:00:00 AM EST eCW1 ([facility]) [facility] [address] [place] [address] 05/24/2019 12:00:00 AM EST eCW1 ([facility]) Immunizations Vaccine Date Status Description Data Source(s) influenza, recombinant, quadrIvalent,injectable, prese rvative free 04/11/2020 05:10:00 PM EST completed eCW1 ([facility]) influenza, recombinant, quadrIvalent,injectable, prese rvative free 04/11/2020 05:10:00 PM EST completed eCW1 ([facility]) influenza, recombinant, quadrIvalent,injectable, prese rvative free 04/11/2020 05:10:00 PM EST completed eCW1 ([facility]) influenza, recombinant, quadrIvalent,injectable, prese rvative free 04/11/2020 05:10:00 PM EST completed eCW1 ([facility]) influenza, recombinant, quadrIvalent,injectable, prese rvative free 04/11/2020 05:10:00 PM EST completed eCW1 ([facility]) influenza, recombinant, quadrIvalent,injectable, prese rvative free 04/11/2020 05:10:00 PM EST completed eCW1 ([facility]) influenza, recombinant, quadrIvalent,injectable, prese rvative free 06/15/2019 10:16:00 AM EST completed eCW1 ([facility]) influenza, recombinant, quadrIvalent,injectable, prese rvative free 06/15/2019 10:16:00 AM EST completed eCW1 ([facility]) influenza, recombinant, quadrIvalent,injectable, prese rvative free 06/15/2019 10:16:00 AM EST completed eCW1 ([facility]) influenza, recombinant, quadrIvalent,injectable, prese rvative free 06/15/2019 10:16:00 AM EST completed eCW1 ([facility]) influenza, recombinant, quadrIvalent,injectable, prese rvative free 06/15/2019 10:16:00 AM EST completed eCW1 ([facility]) influenza, recombinant, quadrIvalent,injectable, prese rvative free 06/15/2019 10:16:00 AM EST completed eCW1 ([facility]) influenza, recombinant, quadrIvalent,injectable, prese rvative free 06/15/2019 10:16:00 AM EST completed eCW1 ([facility]) influenza, recombinant, quadrIvalent,injectable, prese rvative free 06/15/2019 10:16:00 AM EST completed eCW1 ([facility]) influenza, recombinant, quadrIvalent,injectable, prese rvative free 06/15/2019 10:16:00 AM EST completed eCW1 ([facility]) influenza, recombinant, quadrIvalent,injectable, prese rvative free 06/15/2019 10:16:00 AM EST completed eCW1 ([facility]) influenza, recombinant, quadrIvalent,injectable, prese rvative free 06/15/2019 10:16:00 AM EST completed eCW1 ([facility]) influenza, recombinant, quadrIvalent,injectable, prese rvative free 06/15/2019 10:16:00 AM EST completed eCW1 ([facility]) influenza, recombinant, quadrIvalent,injectable, prese rvative free 06/15/2019 10:16:00 AM EST completed eCW1 ([facility]) influenza, recombinant, quadrIvalent,injectable, prese rvative free 06/15/2019 10:16:00 AM EST completed eCW1 ([facility]) influenza, recombinant, quadrIvalent,injectable, prese rvative free 06/15/2019 10:16:00 AM EST completed eCW1 ([facility]) influenza, recombinant, quadrIvalent,injectable, prese rvative free 06/15/2019 10:16:00 AM EST completed eCW1 ([facility]) Medications Medication Brand Name Start Date Product Form Dose Route Admi nistrative Instructions Pharmacy Instructions Status Indications Reaction Description Data Source(s) Acetic Acid 20 MG/ML Otic Solution Acetic Acid 2 % Acetic Ac id 2 % 06/09/2020 12:00:00 AM EST 5.0 {drops_into_affected_ear} ac tive Acetic Acid 2 % eCW1 ([facility]) Fluticasone Propionate 50 MCG/ACT Fluticasone Propionate 50 MCG/ACT 06/09/2020 12:00:00 AM EST 1.0 {spray_in_each_nostril} acti ve Fluticasone Propionate 50 MCG/ACT eCW1 ([facility]) Fluticasone Propionate 50 MCG/ACT Fluticasone Propionate 50 MCG/ACT 06/09/2020 12:00:00 AM EST 1.0 {spray_in_each_nostril} acti ve Fluticasone Propionate 50 MCG/ACT eCW1 ([facility]) Acetic Acid 20 MG/ML Otic Solution Acetic Acid 2 % Acetic Ac id 2 % 06/09/2020 12:00:00 AM EST 5.0 {drops_into_affected_ear} ac tive Acetic Acid 2 % eCW1 ([facility]) 24 HR Metformin hydrochloride 500 MG Ext ended Release Oral Tablet metFORMIN (GLUCOPHATE-XR) 500 MG 24 hr tablet metFORMIN (GLUCOPHATE-XR) 500 MG 24 hr tablet 06/03/2020 12:00:00 AM EST 1000 mg Oral active Take 1,000 mg by mouth 2 (two) times a day [facility] OneTouch Ultra 2 w/Device OneTouch Ultra 2 w/Device 04/11/2020 1 2:00:00 AM EST active OneTouch Ultra 2 w/Device eCW1 ([facility]) OneTouch Ultra 2 w/Device OneTouch Ultra 2 w/Device 04/11/2020 1 2:00:00 AM EST active OneTouch Ultra 2 w/Device eCW1 ([facility]) OneTouch Ultra 2 w/Device OneTouch Ultra 2 w/Device 04/11/2020 1 2:00:00 AM EST active OneTouch Ultra 2 w/Device eCW1 ([facility]) OneTouch Ultra 2 w/Device OneTouch Ultra 2 w/Device 04/11/2020 1 2:00:00 AM EST active OneTouch Ultra 2 w/Device eCW1 ([facility]) OneTouch Ultra 2 w/Device OneTouch Ultra 2 w/Device 04/11/2020 1 2:00:00 AM EST active OneTouch Ultra 2 w/Device eCW1 ([facility]) OneTouch Ultra 2 w/Device OneTouch Ultra 2 w/Device 04/11/2020 1 2:00:00 AM EST active OneTouch Ultra 2 w/Device eCW1 ([facility]) topiramate 200 MG Oral Tablet topiramate (TOPAMAX) 200 MG tablet topiramate (TOPAMAX) 200 MG tablet 03/17/2020 12:00:00 AM EDT 1 {tbl} Oral aborted Take 1 tablet by mouth daily [facility] rizatriptan 10 MG Disintegrating Oral Tablet Rizatriptan J Carlos zoate 02/11/2020 12:00:00 AM EDT active M EDENT ([facility] ) ammonium lactate 120 MG/ML Topical Cream Ammonium Lactate 11/22/2019 12:00:00 AM EDT active MEDENT ([facility] Amlodipine 5 MG Oral Tablet amLODIPine (NORVASC) 5 MG tablet amLODIPine (NORVASC) 5 MG tablet 11/15/2019 12:00:00 AM EDT active TAKE ONE TABLET BY MOUTH @9AM [facility] MetFORMIN HCl ER 500 MG MetFORMIN HCl ER 500 MG 11/09/2019 12:00:00 A M EDT active MetFORMIN HCl ER 500 MG eCW1 ([facility]) 24 HR Metformin hydrochloride 500 MG Ext ended Release Oral Tablet MetFORMIN HCl ER 500 MG MetFORMIN HCl ER 500 MG 11/09/2019 12:00:00 AM EDT active MetFORMIN HCl ER 500 MG eCW1 ([facility]) MetFORMIN HCl ER 500 MG MetFORMIN [...] ER 500 MG eCW1 ([facility]) Cpap Mask And Supplies 09/05/2019 12:00:00 AM EDT active MEDENT ([facility]) Lisinopril 20 MG Oral Tablet lisinopril (PRINIVIL,ZEST RIL) 20 MG tablet lisinopril (PRINIVIL,ZESTRIL) 20 MG tablet 08/29/2019 12:00:00 AM EDT active TAKE TWO TABLETS BY MOUTH @9AM [facility] atorvastatin 40 MG Oral Tablet atorvastatin (LIPITOR) 40 MG tablet atorvastatin (LIPITOR) 40 MG tablet 06/04/2019 12:00:00 AM EST 40 mg Oral active Take 40 mg by mouth daily [facility] tizanidine 2 MG Oral Tablet tiZANidine (ZANAFLEX) 2 MG tablet tiZANidine (ZANAFLEX) 2 MG tablet 06/04/2019 12:00:00 AM EST 2 mg Oral active Take 2 mg by mouth every 6 (six) hours as needed [facility] gabapentin 600 MG Oral Tablet gabapentin (NEURONTIN) 6 00 MG tablet gabapentin (NEURONTIN) 600 MG tablet 06/04/2019 12:00:00 AM EST 600 mg Oral active Take 600 mg by mouth 3 (three) times a day [facility] meloxicam 15 MG Oral Tablet meloxicam (MOBIC) 15 MG ta blet meloxicam (MOBIC) 15 MG tablet 06/04/2019 12:00:00 AM EST 15 mg Oral aborted Take 15 mg by mouth daily [facility] Omeprazole 40 MG Delayed Release Oral Ca psule omeprazole (PRILOSEC) 40 MG capsule omeprazole (PRILOSEC) 40 MG capsule 06/04/2019 12:00:00 AM EST 40 mg Oral active Take 40 mg by mouth daily [facility] latanoprost 0.05 MG/ML Ophthalmic Soluti on latanoprost (XALATAN) 0.005 % ophthalmic solution latanoprost (XALATAN) 0.005 % ophthalmic solution 10/2019 12:00:00 AM EST active [facility] Betamethasone 0.0005 MG/MG Augmented Top ical Ointment betamethasone, augmented, (DIPROLENE) 0.05 % ointment betamethasone, augmented, (DIPROLENE) 0. 05 % ointment 06/01/2019 12:00:00 AM EST active APPLY TO THE AFFECTED AREA(S) ON BODY AND HANDS EVERY EVENING [facility] 0.5 ML dulaglutide 3 MG/ML Auto-Injector [Trulicity] TRULICITY 1.5 MG/0.5ML SOPN TRULICITY 1.5 MG/0.5ML SOPN 05/25/2019 12:00:00 AM EST active INJECT SUBCUTANEOUSLY DIRECTED ONCE A WEEK [facility] magnesium citrate 58.2 MG/ML Oral Solution Magnesium Citrate 03/08/2019 12:00:00 AM EDT completed MEDENT ([facility]) Suprep Bowel Prep Kit Suprep Bowel Prep Kit 03/08/2019 12:00:00 AM EDT completed MEDENT ([facility]) Metformin hydrochloride 1000 MG Oral Tab let metFORMIN (GLUCOPHAGE) 1000 MG tablet metFORMIN (GLUCOPHAGE) 1000 MG tablet 11/27/2016 12:00:00 AM EDT 1000 mg Oral aborted Take 1 tab let (1,000 mg total) by mouth 2 (two) times a day with meals [facility] Cholecalciferol 2000 UNT Oral Capsule Ch olecalciferol (VITAMIN D) 50 MCG (1999 UT) CAPS Cholecalciferol (VITAMIN D) 50 MCG (1999 UT) CAPS 11/27 12:00:00 AM EDT aborted VITAMIN D 2000 U NIT CAPS [facility] Vitamins-Lipotropics (B-STRESS) CAPS 59081-930-62 aborted B- STRESS CAPS [facility] Calcium Citrate-Vitamin D (CALCIUM + D PO) 1 {tbl} Oral aborted Take 1 tablet by mouth daily [facility] FERROUS SULFATE PO 1 {tbl} Oral aborted Take 1 tablet by mouth daily [facility] fluticasone (FLONASE) 50 MCG/ACT nasal spray 3789-9498-11 aborted FLONASE 50 MCG/ACT NASAL SUSPENSION [facility] Clobetasol Propionate 0.5 MG/ML Topical Cream clobetasol (TEMOVATE) 0.05 % cream clobetasol (TEMOVATE) 0.05 % cream abo rted CLOBETASOL PROPIONATE 0.05 % CREA [facility] Ascorbic Acid 60 MG / Beta Carotene 5000 UNT / Copper Sulfate 40 MG / dl-alpha tocopheryl acetate 30 UNT / Sodium Selenite 0.04 MG / Zinc Oxide 40 MG Oral Tablet Multiple Vitamins-Minerals (MULTIVITAMIN WOMEN) TABS Multiple Vitamins- Minerals (MULTIVITAMIN WOMEN) TABS abo rted MULTIVITAMIN WOMEN TABS [facility] Insurance Providers Payer name Policy type / Coverage type Policy ID Covered republican ID Covered republican's relationship to marques Policy Marques Plan Information [facility] [id number] SP [id number] [place] [employer] [id number] [facility] MEDICAID [id number] 1 [place] [employer] [id number] Michelle [id number] 100 [facility] MEDICAID [id number] Michelle [id number] [place] [employer] [facility]ARE O [id number] S [id number] [facility] [id number] SP [id number] ANSI-Medicaid [id number] ANSI-Medicaid [id number] ANSI-Not a Secondary Insurance [id number] ANSI-Not a Secondary Insurance [id number] ANSI-Medicaid [id number] ANSI-Medicaid [id number] ANSI-Medicaid [id number] ANSI-Not a Secondary Insurance [id number] ANSI-Medicaid [id number] ANSI-Not a Secondary Insurance [id number] ANSI-Medicaid [id number] ANSI-Medicaid [id number] ANSI-Medicaid [id number] ANSI-Not a Secondary Insurance [id number] ANSI-Medicaid [id number] ANSI-Medicaid [id number] ANSI-Not a Secondary Insurance [id number] ANSI-Medicaid [id number] ANSI-Medicaid [id number] ANSI-Medicaid [id number] ANSI-Not a Secondary Insurance [id number] Commercial [id number] Self [id number] [facility] Commercial [id number] Self [id number] Medicaid Medicaid [id number] Self [id number] ANSI-Not a Secondary Insurance [id number] ANSI-Medicaid [id number] ANSI-Medicaid [id number] ANSI-Not a Secondary Insurance [id number] ANSI-Medicaid [id number] ANSI-Medicaid [id number] ANSI-Medicaid [id number] ANSI-Not a Secondary Insurance [id number] ANSI-Medicaid [id number] ANSI-Medicaid [id number] ANSI-Medicaid [id number] ANSI-Not a Secondary Insurance [id number] ANSI-Medicaid [id number] ANSI-Not a Secondary Insurance [id number] ANSI-Medicaid [id number] ANSI-Medicaid [id number] ANSI-Medicaid [id number] ANSI-Not a Secondary Insurance [id number] MVP Medicaid Commercial [id number] Self [id number] [facility] Community Plan Medigap Part B [id number] Self [id number] ANSI-Medicaid [id number] ANSI-Not a Secondary Insurance [id number] ANSI-Medicaid [id number] ANSI-Not a Secondary Insurance [id number] ANSI-Medicaid [id number] ANSI-Medicaid [id number] ANSI-Not a Secondary Insurance [id number] ANSI-Medicaid [id number] ANSI-Medicaid [id number] ANSI-Not a Secondary Insurance [id number] ANSI-Medicaid [id number] ANSI-Medicaid [id number] ANSI-Medicaid [id number] ANSI-Medicaid [id number] ANSI-Not a Secondary Insurance [id number] ANSI-Medicaid [id number] ANSI-Not a Secondary Insurance [id number] ANSI-Medicaid [id number] ANSI-Medicaid [id number] ANSI-Not a Secondary Insurance [id number] ANSI-Medicaid [id number] MVP Medicaid Commercial [id number] Self [id number] ANSI-Medicaid [id number] ANSI-Medicaid [id number] ANSI-Not a Secondary Insurance [id number] [facility] COMMUNITY PLAN [facility] [id number] Medicaid Medicaid [id number] Self [id number] Community Plan - [facility] Commercial [id number] Self [id number] ANSI-Medicaid [id number] ANSI-Medicaid [id number] ANSI-Medicaid [id number] ANSI-Medicaid [id number] ANSI-Medicaid [id number] ANSI-Medicaid [id number] ANSI-Medicaid [id number] ANSI-Medicaid [id number] ANSI-Medicaid [id number] ANSI-Medicaid [id number] [facility] Community Plan Commercial [id number] Self [id number] ANSI-Medicaid [id number] ANSI-Medicaid [id number] ANSI-Medicaid [id number] ANSI-Medicaid [id number] ANSI-Medicaid [id number] ANSI-Medicaid [id number] ANSI-Medicaid [id number] ANSI-Medicaid [id number] [facility] [id number] SP [id number] ANSI-Medicaid [id number] ANSI-Medicaid [id number] [facility] O [id number] S [id number] ANSI-Medicaid [id number] ANSI-Medicaid [id number] ANSI-Medicaid [id number] ANSI-Medicaid [id number] ANSI-Medicaid [id number] ANSI-Medicaid [id number] ANSI-Medicaid [id number] ANSI-Medicaid [id number] ANSI-Medicaid [id number] ANSI-Medicaid [id number] [facility] COMMUNITY PLAN [facility] [id number] SP [id number] Medicaid Medicaid [id number] Self [id number] Medicaid Medicaid [id number] Self [id number] ANSI-Medicaid [id number] ANSI-Medicaid [id number] [facility] Community Plan Commercial [id number] Self [id number] ANSI-Medicaid [id number] ANSI-Medicaid [id number] ANSI-Medicaid [id number] ANSI-Medicaid [id number] ANSI-Medicaid [id number] ANSI-Medicaid [id number] [facility] Community Plan Commercial [id number] Self [id number] [facility] Community Plan Commercial [id number] Self [id number] Medicaid Medicaid [id number] Self [id number] Medicaid Medicaid [id number] Self [id number] Medicaid Medicaid [id number] Self [id number] Medicaid Medicaid [id number] Self [id number] Medicaid Medicaid [id number] Self [id number] [facility] [id number] S [id number] [facility] MEDICAID PI PI Medicaid Medicaid [id number] Self [id number] MEDICAID [id number] SP [id number] MEDICAID [id number] SP [id number] Medicaid Medigap Part B [id number] Self [id number] Community Plan - [facility] Commercial [id number] Self [id number] UNHC COMMUNITY PLAN MCDO [id number] SP [id number] Community Plan - [facility] Commercial Self UNHC COMMUNITY PLAN MCDHMO [id number] SP [id number] [facility] Commercial Self HMO BLUE [id number] SP [id number] [facility] MEDICAID JOSE HMO [id number] S [id number] [facility] JOSE HMO [id number] S [id number] BLUE CROSS BILLS PLAN [id number] SP [id number] [place] 306/806 [id number] SP [id number] Problems, Conditions, and Diagnoses Code Display Name Description Problem Type Effective Dates Data Source(s) J30.0 6612678 Vasomotor rhinitis Problem 06/09/2020 12:00: 00 AM EST eCW1 ([facility]) J30.9 [id number] Allergic rhinitis, unspecified s easonality, unspecified trigger Problem 06/09/2020 12:00:00 AM EST eCW1 ([facility]) K22.719 [id number] Becerra's esophagus with dyspla bishop, unspecified Problem 10/16/2019 12:00:00 AM EDT eCW1 ([facility]) K22.719 [id number] Becerra's esophagus with dyspla bishop, unspecified Problem 10/16/2019 12:00:00 AM EDT eCW1 ([facility]) R06.02 Shortness of breath Shortness of breath [id number] 0 06/08/2019 12:00:00 AM [facility] G43.909 Migraine headache Migraine headache [id number] 06/08/2019 12:00:00 AM [facility] E78.5 Hyperlipidemia Hyperlipidemia [id number] 06/08/2019 12:00: 00 AM [facility] E11.9 Diabetes mellitus, type II Diabetes mellitus, type II [id number] 06/08/2019 12:00:00 AM [facility] I10 Benign essential hypertension Benign essential hyperte nsion [id number] 06/08/2019 12:00:00 AM [facility] M19.90 Arthritis Arthritis [id number] 06/08/2019 12:00:00 AM ES T [facility] R94.31 Abnormal electrocardiogram Abnormal electrocardiogram [id number] 06/08/2019 12:00:00 AM [facility] Z79.4 roasterman (current) use of insulin correction (cu rrent) use of insulin Diagnosis 06/04/2020 08:26:24 AM [facility] E11.9 Type 2 diabetes mellitus without complic ations Type 2 diabetes mellitus without complic Diagnosis 06/04/2020 08:26:24 AM [facility] I10 Essential (primary) hypertension Essential (primary) h ypertension Diagnosis 06/04/2020 08:26:24 AM EST [facility] E78.5 Hyperlipidemia, unspecified Hyperlipidemia, unspecifie d Diagnosis 06/04/2020 08:26:24 AM [facility] I42.9 Cardiomyopathy, unspecified Cardiomyopathy, unspecifie d Diagnosis 06/04/2020 08:26:24 AM [facility] R06.02 Shortness of breath Shortness of breath Diagnosis 0 06/04/2020 08:26:24 AM [facility] G43.809 Other migraine, not intractable, without status migrainosus Other migraine, not intractable, without Diagnosis 09/20/2019 02:52:22 PM ED T [facility] Surgeries/Procedures Procedure Description Date Indications Data Source(s) TROPONIN QUANTITATIVE TROPONIN I Routine 04/17/2020 04/17/2020 12:00:00 AM EST [facility] Immunization: Flublok Quadrivalent (18 years & older) 0.5mL IM (Influenza) 04/11/2020 12:00:00 AM EST eCW1 ([facility]) Endoscopy Upper GI Biopsy 10/23/2019 12:00:00 AM EDT MEDENT ([facility], ) RIV4 VACC RECOMBINANT DNA IM 06/15/2019 12:00:00 AM ES T eCW1 ([facility]) IMMUNIZATION ADMIN 06/15/2019 12:00:00 AM EST eCW1 ([facility]) MED NUTRITION INDIV SUBSEQ 06/11/2019 12:00:00 AM EST eCW1 ([facility]) PSYTX W PT 45 MINUTES 06/11/2019 12:00:00 AM EST eCW1 ([facility]) Results ID Date Data Source [id number] 10/23/2019 01:45:00 PM EDT [facility] Name Value Range Interpretation Code Description Data Madelin rce(s) Supporting Document(s) Surgical pathology study Laboratory test result MEDENT ([facility], ) FINAL DIAGNOSIS A - Esophagus, biopsy: [...] aggregate. All in one. -OA 10/24/2019 - 7 Signed NORRIS CALL MD 10/24/2019 1228 ID Date Data Source [id number] 10/20/2019 08:40:00 AM EDT [facility] Name Value Range Interpretation Code Description Data Madelin rce(s) Supporting Document(s) SARS CORONAVIRUS 2 RNA [facility] This lab was ordered by [facility] and reported by [facility]. ID Date Data Source [id number] 07/12/2019 12:00:00 AM EST eCW1 ([facility]) Name Value Range Interpretation Code Description Data Madelin rce(s) Supporting Document(s) Hemoglobin A1c/Hemoglobin.total in Blood 5.2 HEMOGLOBIN A1c eCW1 ([facility]) Procedure Social History Code Duration Value Status Description Data Source(s ) Smoking 06/20/2020 12:00:00 AM EST Never Smoker completed Never S moker eCW1 ([facility]) Smoking 06/09/2020 12:00:00 AM EST Never Smoker completed Never S moker eCW1 ([facility]) Alcohol intake 06/04/2020 12:00:00 AM EST No completed [facility] Smoking 06/04/2020 12:00:00 AM EST Never smoker completed Never s moker [facility] Smoking 05/05/2020 12:00:00 AM EST Never Smoker completed Never S moker eCW1 ([facility]) Smoking 05/05/2020 12:00:00 AM EST Never Smoker completed Never S moker eCW1 ([facility]) Smoking 04/11/2020 12:00:00 AM EST Never Smoker completed Never S moker eCW1 ([facility]) Smoking 04/11/2020 12:00:00 AM EST Never Smoker completed Never S moker eCW1 ([facility]) Smoking 02/27/2020 12:00:00 AM EDT Never Smoker completed Never S moker eCW1 ([facility]) Smoking 02/27/2020 12:00:00 AM EDT Never Smoker completed Never S moker eCW1 ([facility]) Smoking 02/27/2020 12:00:00 AM EDT Never Smoker completed Never S moker eCW1 ([facility]) Smoking 02/27/2020 12:00:00 AM EDT Never Smoker completed Never S moker eCW1 ([facility]) Smoking 02/27/2020 12:00:00 AM EDT Never Smoker completed Never S moker eCW1 ([facility]) Smoking 10/16/2019 12:00:00 AM EDT Never Smoker completed Never S moker eCW1 ([facility]) Smoking 10/16/2019 12:00:00 AM EDT Never Smoker completed Never S moker eCW1 ([facility]) Smoking 10/16/2019 12:00:00 AM EDT Never Smoker completed Never S moker eCW1 ([facility]) Smoking 10/16/2019 12:00:00 AM EDT Never Smoker completed Never S moker eCW1 ([facility]) Vital Signs ID Date Data Source UNK Name Value Range Interpretation Code Description Data Source(s) Diastolic blood pressure 80 mm[Hg] 80 mm[Hg] eCW1 ([facility]) Systolic blood pressure 150 mm[Hg] 150 mm[Hg] e CW1 ([facility]) Body temperature 97.2 [degF] 97.2 [degF] eCW1 ( [facility]) Respiratory rate 17 /min 17 /min eCW1 ([facility]) Heart rate /min eCW1 ([facility]) Body mass index (BMI) [Ratio] 27.56 kg/m2 27.56 kg/m2 eCW1 ([facility]) Body height 67 [in_i] 67 [in_i] eCW1 ([facility]) Body weight 176 [lb_av] 176 [lb_av] eCW1 ([facility]) Diastolic blood pressure 62 mm[Hg] 62 mm[Hg] eCW1 ([facility]) Systolic blood pressure 122 mm[Hg] 122 mm[Hg] e CW1 ([facility]) Body temperature 98.1 [degF] 98.1 [degF] eCW1 ( [facility]) Respiratory rate 18 /min 18 /min eCW1 ([facility]) Heart rate 106 /min 106 /min eCW1 ([facility]) Body mass index (BMI) [Ratio] 26.31 kg/m2 26.31 kg/m2 W1 ([facility]) Body height 67 [in_i] 67 [in_i] eCW1 ([facility]) Body weight 168 [lb_av] 168 [lb_av] eCW1 ([facility]) Body mass index (BMI) [Ratio] 27.4 kg/m2 [...] blood pressure 82 mm[Hg] 82 mm[Hg] eCW1 ([facility]) Systolic blood pressure 128 mm[Hg] 128 mm[Hg] e CW1 ([facility]) Body temperature 98.5 [degF] 98.5 [degF] eCW1 ( [facility]) Respiratory rate 20 /min 20 /min eCW1 ([facility]) Heart rate 90 /min 90 /min eCW1 ([facility]) Body mass index (BMI) [Ratio] 27.94 kg/m2 27.94 kg/m2 eCW1 ([facility]) Body height 67 [in_i] 67 [in_i] eCW1 ([facility]) Body weight 178.4 [lb_av] 178.4 [lb_av] eCW1 ([facility]) Diastolic blood pressure 82 mm[Hg] 82 mm[Hg] eCW1 ([facility]) Systolic blood pressure 140 mm[Hg] 140 mm[Hg] e CW1 ([facility]) Body temperature 97.4 [degF] 97.4 [degF] eCW1 ( [facility]) Respiratory rate 20 /min 20 /min eCW1 ([facility]) Heart rate 95 /min 95 /min eCW1 ([facility]) Body mass index (BMI) [Ratio] 27.53 kg/m2 27.53 kg/m2 eCW1 ([facility]) Body height 67 [in_us] 67 [in_us] eCW1 ([facility]) Body weight Measured 175.8 [lb_av] 175.8 [lb_av ] eCW1 ([facility]) Body weight 74.844 kg 74.844 kg MEDENT ([facility] ) Body mass index (BMI) [Ratio] 25.8 kg/m2 25.8 k g/m2 MEDENT ([facility], ) Body weight 165.00 [lb_av] 165.00 [lb_av] MEDEN T ([facility], ) Body height 67 [in_i] 67 [in_i] MEDANGEL ([facility], ) 5'7" Diastolic blood pressure 74 mm[Hg] 74 mm[Hg] MEDENT ([facility], ) Systolic blood pressure 118 mm[Hg] 118 mm[Hg] M EDENT ([facility], ) Diastolic blood pressure 70 mm[Hg] 70 mm[Hg] eCW1 ([facility]) Systolic blood pressure 120 mm[Hg] 120 mm[Hg] e CW1 ([facility]) Body temperature 98.3 [degF] 98.3 [degF] eCW1 ( [facility]) Respiratory rate 20 /min 20 /min eCW1 ([facility]) Heart rate 82 /min 82 /min eCW1 ([facility]) Body mass index (BMI) [Ratio] 26.00 kg/m2 26.00 kg/m2 eCW1 ([facility]) Body height 67 [in_us] 67 [in_us] eCW1 ([facility]) Body weight Measured 166 [lb_av] 166 [lb_av] eC W1 ([facility]) Body mass index (BMI) [Ratio] 26.69 kg/m2 26.69 kg/m2 eCW1 ([facility]) Body height 67 [in_us] 67 [in_us] eCW1 ([facility]) Body weight Measured 170.4 [lb_av] 170.4 [lb_av ] eCW1 ([facility]) Patient Treatment Plan of Care Planned Activity Planned Date Details Description Data Source (s) Fluticasone Propionate 50 MCG/ACT 06/09/2020 12:00:00 AM EST eCW1 ([facility]) Acetic Acid 20 MG/ML Otic Solution 06/09/2020 12:00:00 AM EST eCW1 ([facility]) 24 HR Metformin hydrochloride 500 MG Extended Release Oral Tablet 06/03/2020 12:00:00 AM EST [facility] OneTouch Ultra 2 w/Device 04/11/2020 12:00:00 AM EST eCW1 ([facility]) OneTouch Ultra 2 w/Device 04/11/2020 12:00:00 AM EST eCW1 ([facility]) topiramate 200 MG Oral Tablet 03/17/2020 12:00:00 AM EDT [facility] Amlodipine 5 MG Oral Tablet 11/15/2019 12:00:00 AM EDT [facility] MetFORMIN HCl ER 500 MG 11/09/2019 12:00:00 AM EDT eCW1 ([facility]) MetFORMIN HCl ER 500 MG 11/09/2019 12:00:00 AM EDT eCW1 ([facility]) MetFORMIN HCl ER 500 MG 11/09/2019 12:00:00 AM EDT eCW1 ([facility]) Lisinopril 20 MG Oral Tablet 08/29/2019 12:00:00 AM EDT [facility] tizanidine 2 MG Oral Tablet 06/04/2019 12:00:00 AM EST [facility] Omeprazole 40 MG Delayed Release Oral Capsule 06/04/2019 12:00:00 A M EST [facility] meloxicam 15 MG Oral Tablet 06/04/2019 12:00:00 AM EST [facility] latanoprost 0.05 MG/ML Ophthalmic Solution 06/04/2019 12:00:00 AM E [facility] gabapentin 600 MG Oral Tablet 06/04/2019 12:00:00 AM EST [facility] atorvastatin 40 MG Oral Tablet 06/04/2019 12:00:00 AM EST [facility] Betamethasone 0.0005 MG/MG Augmented Topical Ointment 06/01/2019 12:00:00 AM EST [facility] 0.5 ML dulaglutide 3 MG/ML Auto-Injector [Trulicity] 12:00:00 AM EST [facility] Metformin hydrochloride 1000 MG Oral Tablet 11/27/2016 12:00:00 AM EDT [facility] Cholecalciferol 2000 UNT Oral Capsule 12/13/2014 12:00:00 AM EDT [facility] Vitamins-Lipotropics (B-STRESS) CAPS [facility] Ascorbic Acid 60 MG / Beta Carotene 5000 UNT / Copper Sulfate 40 MG / dl-alpha tocopheryl acetate 30 UNT / Sodium Selenite 0.04 MG / Zinc Oxide 40 MG Oral Tablet [facility] fluticasone (FLONASE) 50 MCG/ACT nasal spray [facility] Clobetasol Propionate 0.5 MG/ML Topical Cream [facility] Calcium Citrate-Vitamin D (CALCIUM + D PO) [facility] FERROUS SULFATE PO [facility]
[2020-07-21] MEDS ORDERED: CIPR7.5D5 AD (17:02)
[2020-07-21 17:09] VITALS: BP 155/90
== END 2020-07-21 17:57 | disposition home or self-care (01) ==
LOC: M ED 13:58
DX: H60.91 Unspecified otitis externa, right ear (principal); H92.01 Otalgia, right ear; E11.9 Type 2 diabetes mellitus without complications; I10 Essential (primary) hypertension; E78.5 Hyperlipidemia, unspecified; F32.9 Major depressive disorder, single episode, unspecified; F41.9 Anxiety disorder, unspecified; K21.9 Gastro-esophageal reflux disease without esophagitis; K59.00 Constipation, unspecified; M54.9 Dorsalgia, unspecified; H40.9 Unspecified glaucoma; Z79.82 Long term (current) use of aspirin; Z79.4 Long term (current) use of insulin; Z79.899 Other long term (current) drug therapy; Z88.5 Allergy status to narcotic agent

== ENCOUNTER → 2020-10-06 | Outpatient (REF) ==
[~2020-10-06] MED LIST changes: +CIPR7.5D5 AD; -SIME180C PO; +SIME180C25 PO
--- NOTE | 2020-10-06 13:51 | REPPI ---
INDICATION: DDD COMPARISON: None. TECHNIQUE: AP, lateral, coned-down views of the lumbar spine. FINDINGS: Three views of the lumbosacral spine demonstrate satisfactory alignment and no acute fracture / compression injury or subluxation. Moderate multilevel degenerative changes include endplate sclerosis, marginal spurring, disc space narrowing and facet hypertrophy. IMPRESSION: 1. No acute fracture / compression injury or subluxation. 2. Moderate multilevel degenerative spondylosis. <Electronically signed by Ismael Petersen > 10/06/20 [id number]
== END ==
LOC: M PLAIMG 08:20
PROVIDERS: ATTEND Internal Medicine
DX: M47.817 Spondylosis without myelopathy or radiculopathy, lumbosacral region (principal)

== ENCOUNTER → 2020-11-06 | Outpatient (REF) | payer OTHER | LOC: M SFHCPLAZ 17:19 | PROVIDERS: ATTEND Family Medicine | DX: L02.91 Cutaneous abscess, unspecified (principal) ==

== ENCOUNTER → 2021-02-24 | Outpatient (CLI) | payer OTHER ==
[~2021-02-24] MED LIST changes: +OMEP40CA4 PO; -OMEP40CA97 PO
[2021-02-24 11:47] LABS: HEMOGLOBIN A1c 7.5 %
[2021-02-24 11:56] LABS: ALBUMIN 3.1 GM/DL (3.2-5.2); BILIRUBIN,TOTAL 0.2 MG/DL (0.2-1.0); CHOLESTEROL RISK RATIO 3.8 (<5); CREATININE FOR GFR 1.05 MG/DL (0.55-1.30); GLOMERULAR FILTRATION RATE 56.5 (>45); POTASSIUM SERUM 3.9 MEQ/L (3.5-5.1); THYROID STIMULATING HORMONE 3.61 uIU/ML (0.358-3.740); TOTAL PROTEIN 6.7 GM/DL (6.4-8.2)
[2021-02-24 12:33] LABS: MAU/CREAT RATIO 206.6 MCG/MG (0.0-30.0)
== END ==
LOC: M PLALAB 09:03
PROVIDERS: ATTEND Family Medicine
DX: E11.9 Type 2 diabetes mellitus without complications (principal)

== ENCOUNTER → 2021-03-06 | Outpatient (CLI) | payer OTHER ==
[2021-03-06 15:12] LABS: ALT/SGPT 82 U/L (12-78); BILIRUBIN,TOTAL 0.2 MG/DL (0.2-1.0); BLOOD UREA NITROGEN 13 MG/DL (7-18); CALCIUM LEVEL 8.2 MG/DL (8.8-10.2); CARBON DIOXIDE LEVEL 22 MEQ/L (21-32); CHLORIDE LEVEL 114 MEQ/L (98-107); CREATININE FOR GFR 0.94 MG/DL (0.55-1.30); FERRITIN 9 NG/ML (8-252); GLOMERULAR FILTRATION RATE > 60.0 (>45); GLUCOSE, FASTING 154 MG/DL (70-100); POTASSIUM SERUM 3.9 MEQ/L (3.5-5.1); SODIUM LEVEL 143 MEQ/L (136-145); TOTAL PROTEIN 6.5 GM/DL (6.4-8.2)
[2021-03-06 15:34] LABS: HEPATITIS B SURFACE ANTIGEN NEGATIVE (NEGATIVE)
[2021-03-06 16:00] LABS: HEPATITIS C VIRUS ABY INDEX 0.1 INDEX (<0.8)
[2021-03-06 16:01] LABS: HEPATITIS B CORE ANTIBODY IGM NEGATIVE (NEGATIVE)
[2021-03-06 16:04] LABS: HEPATITIS A ANTIBODY IGM NEGATIVE (NEGATIVE)
== END ==
LOC: M LAB 11:02
PROVIDERS: ATTEND Family Medicine
DX: R79.89 Other specified abnormal findings of blood chemistry (principal)

== ENCOUNTER → 2021-03-17 | Outpatient (CLI) | payer OTHER ==
--- NOTE | 2021-03-17 11:14 | REP ---
INDICATION: ELEVATED LFTS RUQ LIVER. TECHNIQUE: Real-time sonographic evaluation of the right upper quadrant with Doppler FINDINGS: Multiple ultrasonographic images of the liver show the hepatic parenchymal echo texture to appear unremarkable. There are no focal masses. There is no intrahepatic ductal dilatation. The common bile duct measures approximately 3 mm in its greatest transverse dimension. Multiple ultrasonographic images of the gallbladder show no focal or diffuse gallbladder wall thickening. There are no echogenic foci within the gallbladder lumen, which casts acoustic shadows. The gallbladder is mildly enlarged measuring 11.1 x 4.5 cm. There is no pericholecystic edema. Images of the pancreatic region show no gross abnormality. The imaged portion of the right kidney is unremarkable. IMPRESSION: The gallbladder is mildly enlarged. The examination is otherwise within normal limits. Three-month follow-up is recommended. Consider MRCP if clinically relevant. Accredited by the [employer] in General Ultrasound. <Electronically signed by Louis Morris > 03/17/21 [id number]
== END ==
LOC: M WHC 07:42
PROVIDERS: ATTEND Family Medicine
DX: K82.8 Other specified diseases of gallbladder (principal)

== ENCOUNTER → 2021-03-27 | Outpatient (CLI) | payer OTHER ==
[2021-03-27 14:41] LABS: ALBUMIN 3.3 GM/DL (3.2-5.2); ALT/SGPT 54 U/L (12-78); BILIRUBIN,DIRECT < 0.1 MG/DL (0.0-0.2); BILIRUBIN,TOTAL 0.2 MG/DL (0.2-1.0); TOTAL PROTEIN 6.8 GM/DL (6.4-8.2)
== END ==
LOC: M PLALAB 10:15
PROVIDERS: ATTEND Family Medicine
DX: R80.9 Proteinuria, unspecified (principal); Z12.4 Encounter for screening for malignant neoplasm of cervix

== ENCOUNTER → 2021-07-09 | Outpatient (CLI) | payer OTHER ==
[~2021-07-09] MED LIST changes: +GABA-282 PO
== END ==
LOC: M RAD 08:11
PROVIDERS: ATTEND Family Medicine
DX: K82.8 Other specified diseases of gallbladder (principal)

== ENCOUNTER → 2021-07-10 | Outpatient (CLI) | payer OTHER ==
[2021-07-10 13:57] LABS: ALBUMIN 2.7 GM/DL (3.2-5.2); BILIRUBIN,DIRECT 0.1 MG/DL (0.0-0.2); BILIRUBIN,TOTAL 0.2 MG/DL (0.2-1.0)
== END ==
LOC: M PLALAB 11:18
PROVIDERS: ATTEND Family Medicine
DX: R79.89 Other specified abnormal findings of blood chemistry (principal)

== ENCOUNTER 2021-07-15 16:40 | Inpatient (IN) | payer OTHER ==
[~2021-07-15] VITALS: Ht 170.2 cm; Wt 67.3 kg
[~2021-07-15 16:40] MED LIST changes: -FERR325T3 PO; -SENN-52 PO
[2021-07-15 17:42] LABS: BASO % 0.4 % (0.0-1.0); EOS # 0.6 10^3/uL (0.0-0.5); EOS % 7.1 % (0.0-3.0); LYMPH # 1.5 10^3/uL (1.5-5.0); LYMPH % 18.5 % (24.0-44.0); MONO # 0.7 10^3/uL (0.0-0.8); MONO % 9.4 % (2.0-8.0); NEUTROPHILS # 5.1 10^3/uL (1.5-8.5)
[2021-07-15] MEDS ORDERED: GLUCAGON INJ 1MG VIAL SC PRN (18:25)
[2021-07-15] MEDS ORDERED: ACETAMINOPHEN TAB 650MG DOSE (2X325MG) PO PRN (18:25)
[2021-07-15] MEDS ORDERED: GLUCOSE 4GM CHEW TABLET PO PRN (18:25)
[2021-07-15] MEDS ORDERED: DEXTROSE 50% 50 ML SYRINGE IV PRN (18:25)
[2021-07-15 18:50] LABS: RSV AMPLIFICATION NEGATIVE (NEGATIVE)
[2021-07-15] MEDS ORDERED: HOME MED LIST COMPLETE! XX SCH (19:05)
[2021-07-15 19:40] VITALS: BP 146/65
[2021-07-15 19:55] VITALS: BP 126/61
[2021-07-15] MEDS: HumaLOG INSULIN (NovoLOG) PER UNIT SC SCH (21:00)
[2021-07-15] MEDS: PANTOPRAZOLE 40MG VIAL (C9113 PER 1) IV SCH (21:52)
[2021-07-15 21:56] VITALS: BP 141/65
[2021-07-15 22:05] VITALS: BP 166/82
[2021-07-15 23:41] VITALS: BP 160/71
[2021-07-15 23:56] VITALS: BP 156/69
[2021-07-16] VITALS (9 sets, daily range): BP systolic 142–166; BP diastolic 70–84
[2021-07-16] MEDS: TOPIRAMATE (TopAMAX) 100 MG TAB PO SCH ×2 (05:02→21:39)
[2021-07-16] MEDS: AMITRIPTYLINE 50 MG TAB PO SCH ×2 (05:03→21:40)
[2021-07-16] MEDS: LATANOPROST 0.005% OPHTH SOLN 2.5 ML OU SCH ×3 (05:03→21:00)
[2021-07-16] MEDS: HumaLOG INSULIN (NovoLOG) PER UNIT SC SCH ×4 (07:30→21:00)
[2021-07-16 08:28] LABS: HEMATOCRIT 32.8 % (36.0-47.0); MEAN CORPUSCULAR HEMOGLOBIN 23.2 pg (27.0-33.0); MEAN CORPUSCULAR HGB CONC 29.3 g/dl (32.0-36.5); MEAN CORPUSCULAR VOLUME 79.2 fl (80.0-96.0); PLATELET COUNT, AUTOMATED 536 10^3/uL (150-450); RED BLOOD COUNT 4.14 10^6/uL (4.00-5.40); WHITE BLOOD COUNT 7.3 10^3/uL (4.0-10.0)
[2021-07-16 08:32] LABS: HEMOGLOBIN 9.6 g/dl (12.0-15.5)
[2021-07-16] MEDS ORDERED: LEVEMIR (INSULIN DETEMIR) 1 UNITS/0.01ML SC SCH (09:00)
[2021-07-16] MEDS ORDERED: IRON SUCROSE 100MG 5ML VIAL (J1756 PER 1MG) IV SCH (09:00)
[2021-07-16 09:30] LABS: ALBUMIN 2.8 GM/DL (3.2-5.2); ALT/SGPT 38 U/L (12-78); BILIRUBIN,TOTAL 1.6 MG/DL (0.2-1.0); BLOOD UREA NITROGEN 12 MG/DL (7-18); CALCIUM LEVEL 8.1 MG/DL (8.8-10.2); CARBON DIOXIDE LEVEL 22 MEQ/L (21-32); CHLORIDE LEVEL 114 MEQ/L (98-107); CREATININE FOR GFR 0.91 MG/DL (0.55-1.30); GLOMERULAR FILTRATION RATE > 60.0 (>45); GLUCOSE, FASTING 105 MG/DL (70-100); MAGNESIUM LEVEL 1.8 MG/DL (1.8-2.4); POTASSIUM SERUM 3.8 MEQ/L (3.5-5.1); SODIUM LEVEL 143 MEQ/L (136-145); TOTAL PROTEIN 6.8 GM/DL (6.4-8.2)
[2021-07-16] MEDS: LEVEMIR (INSULIN DETEMIR) 1 UNITS/0.01ML SC SCH (10:26)
[2021-07-16] MEDS: amLODIPine 5 MG TAB PO SCH (10:26)
[2021-07-16] MEDS: IRON SUCROSE 100MG 5ML VIAL (J1756 PER 1MG) IV SCH (10:27)
[2021-07-16] MEDS: ASPIRIN 81MG ENTERIC TABLET PO SCH (10:27)
[2021-07-16] MEDS: ATORVASTATIN 20 MG TAB PO SCH (10:27)
[2021-07-16] MEDS: GABAPENTIN 300 MG CAP PO SCH (10:27)
[2021-07-16] MEDS: PANTOPRAZOLE 40MG VIAL (C9113 PER 1) IV SCH ×2 (10:27→21:40)
[2021-07-16 13:39] LABS: FOLATE 11.4 NG/ML (>5.4)
[2021-07-17] VITALS: BP 160/84
[2021-07-17 04:04] LABS: HEMATOCRIT 30.2 % (36.0-47.0); HEMOGLOBIN 8.8 g/dl (12.0-15.5); MEAN CORPUSCULAR HEMOGLOBIN 23.5 pg (27.0-33.0); MEAN CORPUSCULAR HGB CONC 29.1 g/dl (32.0-36.5); MEAN CORPUSCULAR VOLUME 80.7 fl (80.0-96.0); PLATELET COUNT, AUTOMATED 481 10^3/uL (150-450); RED BLOOD COUNT 3.74 10^6/uL (4.00-5.40); WHITE BLOOD COUNT 7.2 10^3/uL (4.0-10.0)
[2021-07-17 05:04] LABS: ALBUMIN 2.6 GM/DL (3.2-5.2); ALT/SGPT 34 U/L (12-78); BILIRUBIN,TOTAL 0.4 MG/DL (0.2-1.0); BLOOD UREA NITROGEN 9 MG/DL (7-18); CALCIUM LEVEL 8.2 MG/DL (8.8-10.2); CARBON DIOXIDE LEVEL 23 MEQ/L (21-32); CHLORIDE LEVEL 114 MEQ/L (98-107); CREATININE FOR GFR 0.97 MG/DL (0.55-1.30); GLOMERULAR FILTRATION RATE > 60.0 (>45); GLUCOSE, FASTING 104 MG/DL (70-100); POTASSIUM SERUM 3.8 MEQ/L (3.5-5.1); SODIUM LEVEL 145 MEQ/L (136-145)
[2021-07-17 08:00] VITALS: BP 182/88
[2021-07-17] MEDS: IRON SUCROSE 100MG 5ML VIAL (J1756 PER 1MG) IV SCH (08:38)
[2021-07-17 08:39] VITALS: BP 188/82
[2021-07-17] MEDS: GABAPENTIN 300 MG CAP PO SCH (08:39)
[2021-07-17] MEDS: amLODIPine 5 MG TAB PO SCH (08:39)
[2021-07-17] MEDS: ATORVASTATIN 20 MG TAB PO SCH (08:39)
[2021-07-17] MEDS: ASPIRIN 81MG ENTERIC TABLET PO SCH (08:39)
[2021-07-17] MEDS: PANTOPRAZOLE 40MG VIAL (C9113 PER 1) IV SCH (08:39)
[2021-07-17] MEDS: HumaLOG INSULIN (NovoLOG) PER UNIT SC SCH ×2 (08:48→11:54)
[2021-07-17] MEDS: LEVEMIR (INSULIN DETEMIR) 1 UNITS/0.01ML SC SCH (08:48)
[2021-07-17 09:28] LABS: HEMATOCRIT 32.4 % (36.0-47.0); HEMOGLOBIN 9.4 g/dl (12.0-15.5)
[2021-07-17] MEDS ORDERED: SENN-52 PO (11:23)
[2021-07-17] MEDS ORDERED: FERR325T3 PO (11:23)
[2021-07-17 14:17] VITALS: BP 154/82
== END 2021-07-17 14:33 | disposition home or self-care (01) | DRG 663 ==
LOC: M ED 16:40 → M ED INP 18:22 → ENRESERV 21:20 → M PCU 22:07
PROVIDERS: ADMIT Internal Medicine; ATTEND Internal Medicine
PROC: 30233N1 Transfusion of Nonautologous Red Blood Cells into Peripheral Vein, Percutaneous Approach (ICD-10-PCS; principal; 2021-07-15)
DX: D50.8 Other iron deficiency anemias (principal); E11.42 Type 2 diabetes mellitus with diabetic polyneuropathy; E11.649 Type 2 diabetes mellitus with hypoglycemia without coma; I10 Essential (primary) hypertension; E78.5 Hyperlipidemia, unspecified; K21.9 Gastro-esophageal reflux disease without esophagitis; K22.70 Barrett's esophagus without dysplasia; Z86.010 Personal history of colon polyps; G43.709 Chronic migraine without aura, not intractable, without status migrainosus; G89.29 Other chronic pain; H40.9 Unspecified glaucoma; Z79.82 Long term (current) use of aspirin; Z79.4 Long term (current) use of insulin; Z79.899 Other long term (current) drug therapy; Z88.5 Allergy status to narcotic agent; F41.9 Anxiety disorder, unspecified; Z71.3 Dietary counseling and surveillance

== ENCOUNTER → 2021-07-15 | Outpatient (CLI) | payer OTHER ==
[~2021-07-15] MED LIST changes: +FERR325T3 PO; +SENN-52 PO
[2021-07-15 15:35] LABS: MEAN CORPUSCULAR HGB CONC 23.7 g/dl (32.0-36.5); MEAN CORPUSCULAR VOLUME 76.2 fl (80.0-96.0); PLATELET COUNT, AUTOMATED 614 10^3/uL (150-450); RED BLOOD COUNT 2.44 10^6/uL (4.00-5.40); WHITE BLOOD COUNT 7.9 10^3/uL (4.0-10.0)
[2021-07-15 15:37] LABS: HEMOGLOBIN 4.4 g/dl (12.0-15.5)
[2021-07-15 15:38] LABS: HEMATOCRIT 18.6 % (36.0-47.0)
[2021-07-15 15:45] LABS: INR 1.04
[2021-07-15 15:48] LABS: D-DIMER QUANT 2160.34 ng/ml (<500)
[2021-07-15 16:01] LABS: ALBUMIN 2.7 GM/DL (3.2-5.2); ALT/SGPT 33 U/L (12-78); BILIRUBIN,TOTAL 0.3 MG/DL (0.2-1.0); BLOOD UREA NITROGEN 12 MG/DL (7-18); CALCIUM LEVEL 8.1 MG/DL (8.8-10.2); CARBON DIOXIDE LEVEL 23 MEQ/L (21-32); CHLORIDE LEVEL 113 MEQ/L (98-107); CREATININE FOR GFR 1.11 MG/DL (0.55-1.30); FERRITIN 4 NG/ML (8-252); GLUCOSE, FASTING 85 MG/DL (70-100); IRON (FE) 10 UG/DL (50-170); PERCENT SATURATION 2.7 % (13.2-45.0); POTASSIUM SERUM 4.5 MEQ/L (3.5-5.1); SODIUM LEVEL 144 MEQ/L (136-145); TOTAL IRON BINDING CAPACITY 366 UG/DL (250-450); TOTAL PROTEIN 6.4 GM/DL (6.4-8.2)
[2021-07-15 16:54] LABS: HEPATITIS B SURFACE ANTIGEN NEGATIVE (NEGATIVE)
[2021-07-15 17:23] LABS: HEPATITIS C VIRUS ABY INDEX 0.1 INDEX (<0.8)
== END ==
LOC: M PLALAB 14:02
PROVIDERS: ATTEND Family Medicine
DX: R74.01 Elevation of levels of liver transaminase levels (principal)

== ENCOUNTER → 2021-07-22 | Outpatient (CLI) | payer OTHER ==
[~2021-07-22] MED LIST changes: +FERR325T3 PO; +SENN-52 PO
[2021-07-22 18:05] LABS: BASO # 0.1 10^3/uL (0.0-0.2); BASO % 0.7 % (0.0-1.0); EOS # 0.5 10^3/uL (0.0-0.5); EOS % 5.3 % (0.0-3.0); HEMATOCRIT 33.2 % (36.0-47.0); HEMOGLOBIN 9.5 g/dl (12.0-15.5); LYMPH # 1.6 10^3/uL (1.5-5.0); MEAN CORPUSCULAR HEMOGLOBIN 24.7 pg (27.0-33.0); MEAN CORPUSCULAR HGB CONC 28.6 g/dl (32.0-36.5); MEAN CORPUSCULAR VOLUME 86.2 fl (80.0-96.0); MONO # 0.9 10^3/uL (0.0-0.8); MONO % 10.6 % (2.0-8.0); NEUTROPHILS # 5.8 10^3/uL (1.5-8.5); PLATELET COUNT, AUTOMATED 357 10^3/uL (150-450); RED BLOOD COUNT 3.85 10^6/uL (4.00-5.40); WHITE BLOOD COUNT 8.9 10^3/uL (4.0-10.0)
== END ==
LOC: M PLALAB 14:36
PROVIDERS: ATTEND Physician Assistant Medical
DX: D50.9 Iron deficiency anemia, unspecified (principal)

== ENCOUNTER 2021-08-18 10:52 | Emergency (ER) | payer OTHER ==
[~2021-08-18] VITALS: Ht 170.2 cm; Wt 71.8 kg
[~2021-08-18 10:52] MED LIST changes: -D31000TA2 PO; +VITA100093 PO
[2021-08-18] MEDS ORDERED: DEXTROSE 50% 50 ML SYRINGE As Ordered ONE (11:35)
[2021-08-18] MEDS ORDERED: DEXTROSE 50% 50 ML SYRINGE IV STA (11:43)
[2021-08-18] MEDS ORDERED: D5W 1,000 ML IV SCH (11:45)
[2021-08-18 12:10] LABS: BASO % 0.4 % (0.0-1.0); EOS % 0.5 % (0.0-3.0); HEMATOCRIT 35.5 % (36.0-47.0); HEMOGLOBIN 10.8 g/dl (12.0-15.5); LYMPH # 0.5 10^3/uL (1.5-5.0); LYMPH % 7.3 % (24.0-44.0); MEAN CORPUSCULAR HEMOGLOBIN 28.1 pg (27.0-33.0); MEAN CORPUSCULAR HGB CONC 30.4 g/dl (32.0-36.5); MEAN CORPUSCULAR VOLUME 92.2 fl (80.0-96.0); MONO # 0.3 10^3/uL (0.0-0.8); MONO % 3.9 % (2.0-8.0); NEUTROPHILS # 6.5 10^3/uL (1.5-8.5); NEUTROPHILS % 87.5 % (36.0-66.0); PLATELET COUNT, AUTOMATED 264 10^3/uL (150-450); RED BLOOD COUNT 3.85 10^6/uL (4.00-5.40); WHITE BLOOD COUNT 7.4 10^3/uL (4.0-10.0)
[2021-08-18 12:30] LABS: BLOOD UREA NITROGEN 10 MG/DL (7-18); CHLORIDE LEVEL 113 MEQ/L (98-107); CREATININE FOR GFR 0.82 MG/DL (0.55-1.30); GLOMERULAR FILTRATION RATE > 60.0 (>45); GLUCOSE, FASTING 159 MG/DL (70-100); POTASSIUM SERUM 3.8 MEQ/L (3.5-5.1); SODIUM LEVEL 145 MEQ/L (136-145)
[2021-08-18 12:31] LABS: CALCIUM LEVEL 8.4 MG/DL (8.8-10.2); CARBON DIOXIDE LEVEL 27 MEQ/L (21-32)
[2021-08-18 13:42] LABS: VENOUS BASE EXCESS -3.5 (-2.0-2.0); VENOUS HCO3 23.2 MEQ/L (23.0-27.0); VENOUS O2 SATURATION 76.9 % (60.0-80.0); VENOUS PARTIAL PRESSURE CO2 48.9 mmHg (38.0-50.0); VENOUS PARTIAL PRESSURE O2 46.8 mmHg (30.0-50.0); VENOUS PH 7.294 UNITS (7.330-7.430); VENOUS STANDARD HCO3 21.2 MEQ/L; VENOUS TOTAL CO2 24.7 MEQ/L (24.0-28.0)
[2021-08-18 14:17] LABS: ACETONE/KETONE 1.03 MG/DL (<2.81)
[2021-08-18 15:30] VITALS: BP 158/73
== END 2021-08-18 15:55 | disposition home or self-care (01) ==
LOC: M ED 10:52 → EDBD 10:52 → M ED 15:55
DX: E11.649 Type 2 diabetes mellitus with hypoglycemia without coma (principal); I10 Essential (primary) hypertension; R21 Rash and other nonspecific skin eruption; E78.5 Hyperlipidemia, unspecified; K21.9 Gastro-esophageal reflux disease without esophagitis; Z88.6 Allergy status to analgesic agent; Z79.82 Long term (current) use of aspirin; Z79.899 Other long term (current) drug therapy

== ENCOUNTER → 2021-08-20 | Outpatient (CLI) | payer OTHER | LOC: M PLALAB 09:35 | PROVIDERS: ATTEND Family Medicine | DX: E88.01 Alpha-1-antitrypsin deficiency (principal) ==

== ENCOUNTER → 2021-08-26 | Outpatient (CLI) | payer OTHER ==
[2021-08-26 15:11] LABS: HEMOGLOBIN 10.6 g/dl (12.0-15.5); MEAN CORPUSCULAR HEMOGLOBIN 28.8 pg (27.0-33.0); MEAN CORPUSCULAR HGB CONC 31.2 g/dl (32.0-36.5); MEAN CORPUSCULAR VOLUME 92.4 fl (80.0-96.0); PLATELET COUNT, AUTOMATED 289 10^3/uL (150-450); RED BLOOD COUNT 3.68 10^6/uL (4.00-5.40); WHITE BLOOD COUNT 7.8 10^3/uL (4.0-10.0)
[2021-08-26 18:34] LABS: HEMOGLOBIN A1c 4.7 %
== END ==
LOC: M PLALAB 14:07
PROVIDERS: ATTEND Family Medicine
DX: D50.9 Iron deficiency anemia, unspecified (principal); E11.9 Type 2 diabetes mellitus without complications

== ENCOUNTER → 2021-10-05 | Outpatient (CLI) | payer OTHER | LOC: M LABSMTC 11:02 | PROVIDERS: ATTEND Anesthesiology | DX: Z01.818 Encounter for other preprocedural examination (principal); Z11.52 Encounter for screening for COVID-19 ==

== ENCOUNTER → 2021-10-29 | Outpatient (CLI) | payer OTHER ==
[2021-10-29 15:23] LABS: HEMATOCRIT 34.7 % (36.0-47.0); HEMOGLOBIN 11.5 g/dl (12.0-15.5); MEAN CORPUSCULAR HEMOGLOBIN 31.6 pg (27.0-33.0); MEAN CORPUSCULAR HGB CONC 33.1 g/dl (32.0-36.5); MEAN CORPUSCULAR VOLUME 95.3 fl (80.0-96.0); PLATELET COUNT, AUTOMATED 251 10^3/uL (150-450); RED BLOOD COUNT 3.64 10^6/uL (4.00-5.40); WHITE BLOOD COUNT 10.1 10^3/uL (4.0-10.0)
[2021-10-29 15:54] LABS: PERCENT SATURATION 15.6 % (13.2-45.0)
== END ==
LOC: M PLALAB 12:19
PROVIDERS: ATTEND Family Medicine
DX: D50.9 Iron deficiency anemia, unspecified (principal)

== ENCOUNTER → 2021-11-02 | Outpatient (CLI) | payer OTHER | LOC: M WHC 08:40 | PROVIDERS: ATTEND Family Medicine | DX: Z12.31 Encounter for screening mammogram for malignant neoplasm of breast (principal) ==

== ENCOUNTER → 2021-11-16 | Outpatient (CLI) | payer OTHER | LOC: M LABSMTC 10:07 | PROVIDERS: ATTEND Anesthesiology | DX: Z01.812 Encounter for preprocedural laboratory examination (principal) ==

== ENCOUNTER → 2022-03-01 | Outpatient (CLI) | payer OTHER | LOC: M LABSMTC 09:51 | PROVIDERS: ATTEND Anesthesiology | DX: Z01.812 Encounter for preprocedural laboratory examination (principal); Z20.822 Contact with and (suspected) exposure to COVID-19 ==

== ENCOUNTER 2022-03-04 06:27 | Day surgery (SDC) | payer OTHER ==
[~2022-03-04] VITALS: Ht 170.2 cm; Wt 62.1 kg
[~2022-03-04 06:27] MED LIST changes: +NS 1,000 ML IV ONE
[2022-03-04] MEDS ORDERED: fentaNYL 100 MCG/2 ML INJECTION As Ordered ONE (08:32)
[2022-03-04] MEDS ORDERED: LIDOCAINE 2% 100MG/5ML SDV (FOR ANES.) As Ordered ONE (08:40)
[2022-03-04] MEDS ORDERED: propofoL 200 MG/20 ML VIAL As Ordered ONE ×2 (08:40→08:55)
[2022-03-04 09:50] VITALS: BP 164/84
== END 2022-03-04 10:41 | disposition home or self-care (01) ==
LOC: M OPP 06:27
PROVIDERS: ATTEND Internal Medicine Gastroenterology
DX: D50.9 Iron deficiency anemia, unspecified (principal); K22.89 Other specified disease of esophagus; K22.70 Barrett's esophagus without dysplasia; Z79.02 Long term (current) use of antithrombotics/antiplatelets; Z79.4 Long term (current) use of insulin; Z79.82 Long term (current) use of aspirin; Z79.899 Other long term (current) drug therapy; Z88.5 Allergy status to narcotic agent; E11.9 Type 2 diabetes mellitus without complications; G47.33 Obstructive sleep apnea (adult) (pediatric); I10 Essential (primary) hypertension; E78.5 Hyperlipidemia, unspecified; Z86.19 Personal history of other infectious and parasitic diseases
CPT/HCPCS: 43239; 45378; 88305; J3010

== ENCOUNTER → 2022-06-28 | Outpatient (CLI) | payer OTHER ==
[~2022-06-28] MED LIST changes: -NS 1,000 ML IV ONE
== END ==
LOC: M LABSMTC 10:06
PROVIDERS: ATTEND Anesthesiology
DX: Z01.812 Encounter for preprocedural laboratory examination (principal); Z11.52 Encounter for screening for COVID-19

== ENCOUNTER 2022-07-01 06:12 | Day surgery (SDC) | payer OTHER ==
[~2022-07-01] VITALS: Ht 170.2 cm; Wt 67.1 kg
[~2022-07-01 06:12] MED LIST changes: +NS 1,000 ML IV ONE
[2022-07-01] MEDS ORDERED: propofoL 200 MG/20 ML VIAL As Ordered ONE (07:35)
[2022-07-01] MEDS ORDERED: LIDOCAINE 2% 100MG/5ML SDV (FOR ANES.) As Ordered ONE (07:35)
[2022-07-01 08:10] VITALS: BP 163/77
== END 2022-07-01 08:40 | disposition home or self-care (01) ==
LOC: M OPP 06:12
PROVIDERS: ATTEND Internal Medicine Gastroenterology
DX: Z12.11 Encounter for screening for malignant neoplasm of colon (principal); Z79.02 Long term (current) use of antithrombotics/antiplatelets; Z79.82 Long term (current) use of aspirin; Z79.84 Long term (current) use of oral hypoglycemic drugs; Z79.891 Long term (current) use of opiate analgesic; Z79.899 Other long term (current) drug therapy; Z88.5 Allergy status to narcotic agent; G40.89 Other seizures; E78.00 Pure hypercholesterolemia, unspecified; E11.9 Type 2 diabetes mellitus without complications; G47.33 Obstructive sleep apnea (adult) (pediatric); G43.909 Migraine, unspecified, not intractable, without status migrainosus; K21.9 Gastro-esophageal reflux disease without esophagitis; D50.9 Iron deficiency anemia, unspecified; Z83.49 Family history of other endocrine, nutritional and metabolic diseases

== ENCOUNTER → 2022-07-06 | Outpatient (CLI) | payer OTHER ==
[~2022-07-06] MED LIST changes: -NS 1,000 ML IV ONE
[2022-07-06 17:07] LABS: BASO # 0.1 10^3/uL (0.0-0.2); BASO % 0.7 % (0.0-1.0); EOS # 0.6 10^3/uL (0.0-0.5); EOS % 6.4 % (0.0-3.0); HEMOGLOBIN 12.4 g/dl (12.0-15.5); LYMPH # 2.1 10^3/uL (1.5-5.0); LYMPH % 23.3 % (24.0-44.0); MEAN CORPUSCULAR HEMOGLOBIN 30.4 pg (27.0-33.0); MEAN CORPUSCULAR HGB CONC 31.8 g/dl (32.0-36.5); MEAN CORPUSCULAR VOLUME 95.6 fl (80.0-96.0); MONO # 0.7 10^3/uL (0.0-0.8); MONO % 7.6 % (2.0-8.0); NEUTROPHILS # 5.6 10^3/uL (1.5-8.5); NEUTROPHILS % 61.1 % (36.0-66.0); PLATELET COUNT, AUTOMATED 334 10^3/uL (150-450); RED BLOOD COUNT 4.08 10^6/uL (4.00-5.40); WHITE BLOOD COUNT 9.1 10^3/uL (4.0-10.0)
[2022-07-06 17:46] LABS: IRON (FE) 88 UG/DL (50-170); TOTAL IRON BINDING CAPACITY 326 UG/DL (250-425)
[2022-07-06 17:47] LABS: ALBUMIN 3.9 G/DL (3.2-5.2); ALKALINE PHOSPHATASE 92 U/L (46-116); ALT/SGPT 24 U/L (7.0-40); AST/SGOT 22 U/L (<34); BILIRUBIN,TOTAL 0.2 MG/DL (0.3-1.2); BLOOD UREA NITROGEN 17 MG/DL (9-23); CALCIUM LEVEL 8.8 MG/DL (8.3-10.6); CARBON DIOXIDE LEVEL 25 MMOL/L (20-31); CHLORIDE LEVEL 107 MMOL/L (98-107); CHOLESTEROL LEVEL 118 MG/DL (<200); CREATININE FOR GFR 0.75 MG/DL (0.55-1.30); GLOMERULAR FILTRATION RATE > 60.0 (>45); GLUCOSE, FASTING 88 MG/DL (74-106); HDL CHOLESTEROL 30.2 MG/DL (>40); LDL CHOLESTEROL 60.6 MG/DL (<100); NON-HDL-C 88 MG/DL; POTASSIUM SERUM 4.3 MMOL/L (3.5-5.1); SODIUM LEVEL 143 MMOL/L (136-145); TRIGLYCERIDES LEVEL 136 MG/DL (<150)
[2022-07-06 20:33] LABS: HEMOGLOBIN A1c 5.2 % (4.0-6.0)
== END ==
LOC: M PLALAB 15:26
PROVIDERS: ATTEND Physician Assistant
DX: I10 Essential (primary) hypertension (principal); E11.9 Type 2 diabetes mellitus without complications; R63.4 Abnormal weight loss; K92.1 Melena

== ENCOUNTER → 2022-08-02 | Outpatient (CLI) | payer OTHER | LOC: M LABSMTC 08:14 | PROVIDERS: ATTEND Anesthesiology | DX: Z01.818 Encounter for other preprocedural examination (principal); Z11.52 Encounter for screening for COVID-19 ==

== ENCOUNTER → 2022-08-04 | Day surgery (SDC) | payer OTHER ==
[~2022-08-04] VITALS: Ht 170.2 cm; Wt 68.4 kg
[~2022-08-04] MED LIST changes: +BSS IRRIG/VANCO(10MG)/TOBRA(5MG)/EPINEPH(1:1000-0.5CC)500ML BAG-ORONLY IR ONE; +CEFUROXIME 1MG/0.1ML INTRACAMERAL INJ As Ordered ONE; +CYCLOPENTOLATE 1% OPHTH SOLN 2ML BTL OS SCH; +LIDOCAINE 1% SDV 5ML VIAL As Ordered ONE; +LIDOCAINE 3.5 % 1ML OPHTH TOPICAL GEL OU ONE; +MIDAZOLAM INJ 2MG/2ML VIAL As Ordered ONE; +OFLOXACIN 0.3 % (OCUFLOX) OPTH SOL 5ML OS ONE; +PHENYLEPHRINE 10% OPHTH SOL 5ML OS PRN; +PHENYLEPHRINE 2.5% OPHTH SOL 2ML OS SCH; +TROPICAMIDE 1% OPHTH SOLN 15ML OS SCH; +fentaNYL 100 MCG/2 ML INJECTION As Ordered ONE
[2022-08-04 13:13] VITALS: BP 159/70
== END | disposition home or self-care (01) ==
LOC: M SDC 11:03
PROVIDERS: ATTEND Ophthalmology
DX: H25.12 Age-related nuclear cataract, left eye (principal); H40.10X1 Unspecified open-angle glaucoma, mild stage; E11.39 Type 2 diabetes mellitus with other diabetic ophthalmic complication; I10 Essential (primary) hypertension; R01.1 Cardiac murmur, unspecified; K21.9 Gastro-esophageal reflux disease without esophagitis; D64.9 Anemia, unspecified; M19.90 Unspecified osteoarthritis, unspecified site; M51.26 Other intervertebral disc displacement, lumbar region; F41.9 Anxiety disorder, unspecified; F32.A Depression, unspecified; L40.9 Psoriasis, unspecified; R56.9 Unspecified convulsions; G47.30 Sleep apnea, unspecified; Z88.5 Allergy status to narcotic agent; Z79.899 Other long term (current) drug therapy; Z79.82 Long term (current) use of aspirin; Z79.84 Long term (current) use of oral hypoglycemic drugs
CPT/HCPCS: 66991; C1783; J0697; J2250; J3010

== ENCOUNTER → 2022-08-13 | Outpatient (CLI) | payer OTHER ==
[~2022-08-13] MED LIST changes: -BSS IRRIG/VANCO(10MG)/TOBRA(5MG)/EPINEPH(1:1000-0.5CC)500ML BAG-ORONLY IR ONE; -CEFUROXIME 1MG/0.1ML INTRACAMERAL INJ As Ordered ONE; -CYCLOPENTOLATE 1% OPHTH SOLN 2ML BTL OS SCH; -LIDOCAINE 1% SDV 5ML VIAL As Ordered ONE; -LIDOCAINE 3.5 % 1ML OPHTH TOPICAL GEL OU ONE; -MIDAZOLAM INJ 2MG/2ML VIAL As Ordered ONE; -OFLOXACIN 0.3 % (OCUFLOX) OPTH SOL 5ML OS ONE; -PHENYLEPHRINE 10% OPHTH SOL 5ML OS PRN; -PHENYLEPHRINE 2.5% OPHTH SOL 2ML OS SCH; -TROPICAMIDE 1% OPHTH SOLN 15ML OS SCH; -fentaNYL 100 MCG/2 ML INJECTION As Ordered ONE
== END ==
LOC: M LABSMTC 08:29
PROVIDERS: ATTEND Anesthesiology
DX: Z01.812 Encounter for preprocedural laboratory examination (principal)

== ENCOUNTER 2022-08-18 09:40 | Day surgery (SDC) | payer OTHER ==
[~2022-08-18] VITALS: Ht 170.2 cm; Wt 69.4 kg
[~2022-08-18 09:40] MED LIST changes: +BSS IRRIG/VANCO(10MG)/TOBRA(5MG)/EPINEPH(1:1000-0.5CC)500ML BAG-ORONLY IR ONE; +CEFUROXIME 1MG/0.1ML INTRACAMERAL INJ As Ordered ONE; +CYCLOPENTOLATE 1% OPHTH SOLN 2ML BTL OD SCH; +LIDOCAINE 1% SDV 5ML VIAL As Ordered ONE; +LIDOCAINE 3.5 % 1ML OPHTH TOPICAL GEL OU ONE; +OFLOXACIN 0.3 % (OCUFLOX) OPTH SOL 5ML OD ONE; +PHENYLEPHRINE 10% OPHTH SOL 5ML OD PRN; +PHENYLEPHRINE 2.5% OPHTH SOL 2ML OD SCH; +TROPICAMIDE 1% OPHTH SOLN 15ML OD SCH
[2022-08-18] MEDS ORDERED: fentaNYL 100 MCG/2 ML INJECTION As Ordered ONE (12:10)
[2022-08-18] MEDS ORDERED: MIDAZOLAM INJ 2MG/2ML VIAL As Ordered ONE (12:10)
[2022-08-18 12:30] VITALS: BP 200/90
== END 2022-08-18 14:33 | disposition home or self-care (01) ==
LOC: M SDC 09:40
PROVIDERS: ATTEND Ophthalmology
DX: H25.11 Age-related nuclear cataract, right eye (principal); H40.811 Glaucoma with increased episcleral venous pressure, right eye; E11.9 Type 2 diabetes mellitus without complications; G47.30 Sleep apnea, unspecified; F41.9 Anxiety disorder, unspecified; F32.A Depression, unspecified; R56.9 Unspecified convulsions; Z98.51 Tubal ligation status; Z88.5 Allergy status to narcotic agent; Z79.899 Other long term (current) drug therapy; Z79.84 Long term (current) use of oral hypoglycemic drugs; Z79.82 Long term (current) use of aspirin
CPT/HCPCS: 66991; C1783; J0697; J2250; J3010

== ENCOUNTER → 2022-11-03 | Outpatient (CLI) | payer OTHER ==
[~2022-11-03] MED LIST changes: -BSS IRRIG/VANCO(10MG)/TOBRA(5MG)/EPINEPH(1:1000-0.5CC)500ML BAG-ORONLY IR ONE; -CEFUROXIME 1MG/0.1ML INTRACAMERAL INJ As Ordered ONE; -CYCLOPENTOLATE 1% OPHTH SOLN 2ML BTL OD SCH; -LIDOCAINE 1% SDV 5ML VIAL As Ordered ONE; -LIDOCAINE 3.5 % 1ML OPHTH TOPICAL GEL OU ONE; -OFLOXACIN 0.3 % (OCUFLOX) OPTH SOL 5ML OD ONE; -PHENYLEPHRINE 10% OPHTH SOL 5ML OD PRN; -PHENYLEPHRINE 2.5% OPHTH SOL 2ML OD SCH; -TROPICAMIDE 1% OPHTH SOLN 15ML OD SCH
== END ==
LOC: M WHC 12:28
PROVIDERS: ATTEND Physician Assistant
DX: Z12.31 Encounter for screening mammogram for malignant neoplasm of breast (principal)

== ENCOUNTER → 2023-02-01 | Outpatient (CLI) | payer OTHER ==
[2023-02-01 18:31] LABS: BASO # 0.1 10^3/uL (0.0-0.2); BASO % 0.5 % (0.0-1.0); EOS # 0.6 10^3/uL (0.0-0.5); EOS % 4.8 % (0.0-3.0); HEMATOCRIT 39.5 % (36.0-47.0); HEMOGLOBIN 12.6 g/dl (12.0-15.5); LYMPH # 2.1 10^3/uL (1.5-5.0); LYMPH % 17.4 % (24.0-44.0); MEAN CORPUSCULAR HEMOGLOBIN 30.6 pg (27.0-33.0); MEAN CORPUSCULAR HGB CONC 31.9 g/dl (32.0-36.5); MEAN CORPUSCULAR VOLUME 95.9 fl (80.0-96.0); NEUTROPHILS # 8.1 10^3/uL (1.5-8.5); NEUTROPHILS % 67.6 % (36.0-66.0); PLATELET COUNT, AUTOMATED 347 10^3/uL (150-450); RED BLOOD COUNT 4.12 10^6/uL (4.00-5.40)
[2023-02-01 18:42] LABS: HEMOGLOBIN A1c 7.4 % (4.0-6.0)
[2023-02-01 18:58] LABS: ALBUMIN 3.9 G/DL (3.2-5.2); ALKALINE PHOSPHATASE 93 U/L (46-116); ALT/SGPT 21 U/L (7.0-40); AST/SGOT 10 U/L (<34); BILIRUBIN,TOTAL 0.2 MG/DL (0.3-1.2); BLOOD UREA NITROGEN 17 MG/DL (9-23); CALCIUM LEVEL 8.7 MG/DL (8.3-10.6); CARBON DIOXIDE LEVEL 26 MMOL/L (20-31); CHLORIDE LEVEL 110 MMOL/L (98-107); CHOLESTEROL LEVEL 97 MG/DL (<200); CHOLESTEROL RISK RATIO 3.21 (<5); CREATININE FOR GFR 0.98 MG/DL (0.55-1.30); FREE T4 0.84 NG/DL (0.89-1.76); GLOMERULAR FILTRATION RATE > 60.0 (>45); GLUCOSE, FASTING 144 MG/DL (74-106); HDL CHOLESTEROL 30.2 MG/DL (>40); LDL CHOLESTEROL 46.6 MG/DL (<100); NON-HDL-C 66.8 MG/DL; POTASSIUM SERUM 3.6 MMOL/L (3.5-5.1); SODIUM LEVEL 146 MMOL/L (136-145); THYROID STIMULATING HORMONE 3.235 uIU/ML (0.55-4.78); TOTAL 25(OH) VITAMIN D 13.1 NG/ML (20.0-100.0); TOTAL PROTEIN 6.9 G/DL (5.7-8.2); TRIGLYCERIDES LEVEL 101 MG/DL (<150)
== END ==
LOC: M PLALAB 14:48
PROVIDERS: ATTEND Physician Assistant
DX: E11.9 Type 2 diabetes mellitus without complications (principal)

== ENCOUNTER → 2023-04-05 | Outpatient (CLI) | payer OTHER ==
[2023-04-05 18:54] LABS: BASO # 0.1 10^3/uL (0.0-0.2); BASO % 0.7 % (0.0-1.0); EOS # 0.9 10^3/uL (0.0-0.5); EOS % 7.8 % (0.0-3.0); HEMATOCRIT 40.1 % (36.0-47.0); HEMOGLOBIN 12.8 g/dl (12.0-15.5); LYMPH # 2.1 10^3/uL (1.5-5.0); LYMPH % 19.2 % (24.0-44.0); MEAN CORPUSCULAR HEMOGLOBIN 30.3 pg (27.0-33.0); MEAN CORPUSCULAR HGB CONC 31.9 g/dl (32.0-36.5); MONO # 0.8 10^3/uL (0.0-0.8); MONO % 6.8 % (2.0-8.0); NEUTROPHILS # 7.1 10^3/uL (1.5-8.5); NEUTROPHILS % 64.1 % (36.0-66.0); PLATELET COUNT, AUTOMATED 347 10^3/uL (150-450); RED BLOOD COUNT 4.22 10^6/uL (4.00-5.40); WHITE BLOOD COUNT 11.1 10^3/uL (4.0-10.0)
[2023-04-05 18:55] LABS: ALBUMIN 3.8 G/DL (3.2-5.2); ALKALINE PHOSPHATASE 96 U/L (46-116); ALT/SGPT 25 U/L (7.0-40); AST/SGOT 12 U/L (<34); BILIRUBIN,TOTAL 0.2 MG/DL (0.3-1.2); BLOOD UREA NITROGEN 14 MG/DL (9-23); CALCIUM LEVEL 9.1 MG/DL (8.3-10.6); CARBON DIOXIDE LEVEL 27 MMOL/L (20-31); CHLORIDE LEVEL 110 MMOL/L (98-107); CREATININE FOR GFR 0.93 MG/DL (0.55-1.30); GLOMERULAR FILTRATION RATE > 60.0 (>45); GLUCOSE, FASTING 139 MG/DL (74-106); POTASSIUM SERUM 3.8 MMOL/L (3.5-5.1); SODIUM LEVEL 145 MMOL/L (136-145); TOTAL PROTEIN 6.9 G/DL (5.7-8.2)
[2023-04-05 18:57] LABS: PTH INTACT 38.3 PG/ML (18.5-88.0)
[2023-04-05 19:51] LABS: HEMOGLOBIN A1c 7.4 % (4.0-6.0)
== END ==
LOC: M PLALAB 15:50
PROVIDERS: ATTEND Physician Assistant
DX: Z12.4 Encounter for screening for malignant neoplasm of cervix (principal); E11.9 Type 2 diabetes mellitus without complications; D72.829 Elevated white blood cell count, unspecified; E55.9 Vitamin D deficiency, unspecified

== ENCOUNTER → 2023-11-08 | Outpatient (CLI) | payer OTHER ==
[~2023-11-08] MED LIST changes: -ASPI-161 PO; +ASPI-615 PO
== END ==
LOC: M WHC 10:30
PROVIDERS: ATTEND Physician Assistant
DX: Z12.31 Encounter for screening mammogram for malignant neoplasm of breast (principal)

== ENCOUNTER 2024-05-16 14:01 | Emergency (ER) | payer MEDICARE, MEDICAID ==
[~2024-05-16] VITALS: Ht 170.2 cm; Wt 109.1 kg
[~2024-05-16 14:01] MED LIST changes: +GABA-1172 PO; -GABA-282 PO; -SIME180C25 PO; +SIME1CAP4 PO
[2024-05-16 14:08] VITALS: TEMP 96.5
[2024-05-16] MEDS ORDERED: IBUP-1022 PO (15:40)
[2024-05-16] MEDS ORDERED: BACI50OI TOP (15:40)
[2024-05-16] MEDS: POLYSPORIN TOPICAL OINTMENT 15GM TOP ONE (16:05)
[2024-05-16] MEDS: BOOSTRIX VACCINE (TETANUS/DIPHTH/ACEL. PERTUSSIS) 0.5ML SYR IM.IMMUN ONE (16:06)
[2024-05-16 16:14] VITALS: BP 145/78; O2SAT 100
== END 2024-05-16 16:28 | disposition home or self-care (01) ==
LOC: EDBD 14:01 → M ED 14:01
DX: T25.222A Burn of second degree of left foot, initial encounter (principal); E11.9 Type 2 diabetes mellitus without complications; I10 Essential (primary) hypertension; E78.5 Hyperlipidemia, unspecified; K21.9 Gastro-esophageal reflux disease without esophagitis; Z23 Encounter for immunization; Z88.5 Allergy status to narcotic agent; Z79.1 Long term (current) use of non-steroidal anti-inflammatories (NSAID); Z79.84 Long term (current) use of oral hypoglycemic drugs; Z79.899 Other long term (current) drug therapy

== ENCOUNTER → 2024-06-12 | Outpatient (REF) | payer MEDICARE, MEDICAID ==
[~2024-06-12] MED LIST changes: +BACI50OI TOP; +IBUP-1022 PO
[2024-06-12 17:47] LABS: ALBUMIN 3.6 G/DL (3.2-5.2); ALKALINE PHOSPHATASE 75 U/L (35-104); ALT/SGPT 21 U/L (7.0-40); AST/SGOT 15 U/L (<34); BILIRUBIN,TOTAL < 0.2 MG/DL (0.3-1.2); BLOOD UREA NITROGEN 27 MG/DL (9-23); CALCIUM LEVEL 9.3 MG/DL (8.3-10.6); CARBON DIOXIDE LEVEL 24 MMOL/L (20-31); CHLORIDE LEVEL 110 MMOL/L (98-107); CREATININE FOR GFR 0.99 MG/DL (0.55-1.30); GLOMERULAR FILTRATION RATE 59.9 (>45); GLUCOSE, FASTING 209 MG/DL (74-106); SODIUM LEVEL 143 MMOL/L (136-145); TOTAL PROTEIN 6.9 G/DL (5.7-8.2)
[2024-06-12 18:03] LABS: HEMOGLOBIN A1c 5.8 % (4.0-6.0)
== END ==
LOC: M SFHCPLAZ 14:48
PROVIDERS: ATTEND Family Medicine
DX: E11.9 Type 2 diabetes mellitus without complications (principal)

== ENCOUNTER → 2024-07-24 | Outpatient (CLI) | payer MEDICARE, MEDICAID | LOC: M WHC 13:15 | PROVIDERS: ATTEND Internal Medicine Nephrology | DX: N18.32 Chronic kidney disease, stage 3b (principal) ==

== ENCOUNTER → 2024-12-11 | Outpatient (CLI) | payer MEDICARE, MEDICAID ==
[~2024-12-11] MED LIST changes: +TOPI-14; -TOPI200T7
[2024-12-11 18:51] LABS: ALT/SGPT 20.0 U/L (7.0-40); AST/SGOT 16.0 U/L (<34); CALCIUM LEVEL 9.3 MG/DL (8.3-10.6); CARBON DIOXIDE LEVEL 23.0 MMOL/L (20-31); CHLORIDE LEVEL 109.0 MMOL/L (98-107); CHOLESTEROL LEVEL 103.0 MG/DL (<200); CHOLESTEROL RISK RATIO 4.68 (<5); CREATININE FOR GFR 1.39 MG/DL (0.55-1.30); GLOMERULAR FILTRATION RATE 42.1 (>45); LDL CHOLESTEROL 55.4 MG/DL (<100); NON-HDL-C 81.0 MG/DL; POTASSIUM SERUM 3.9 MMOL/L (3.5-5.1); SODIUM LEVEL 146.0 MMOL/L (136-145); TRIGLYCERIDES LEVEL 128.0 MG/DL (<150)
[2024-12-11 19:09] LABS: ESTIMATED AVERAGE GLUCOSE 111.0 MG/DL (60-110)
[2024-12-11 19:15] LABS: CREATININE, URINE 382.0 MG/DL; MALB URINE SIEMENS 417.0 MG/L; MAU/CREAT RATIO 109.1 MCG/MG (0.0-30.0)
== END ==
LOC: M PLALAB 15:46
PROVIDERS: ATTEND Family Medicine
DX: E78.5 Hyperlipidemia, unspecified (principal); E11.9 Type 2 diabetes mellitus without complications

== ENCOUNTER → 2025-03-22 | Outpatient (CLI) | payer MEDICARE, MEDICAID ==
[~2025-03-22] MED LIST changes: -IBUP-1022 PO; +IBUP600T42 PO
[2025-03-22 17:48] LABS: CALCIUM LEVEL 9.3 MG/DL (8.3-10.6); CARBON DIOXIDE LEVEL 23.0 MMOL/L (20-31); CHLORIDE LEVEL 110.0 MMOL/L (98-107); CREATININE FOR GFR 1.65 MG/DL (0.55-1.30); GLOMERULAR FILTRATION RATE 34.1 (>45); POTASSIUM SERUM 3.9 MMOL/L (3.5-5.1); SODIUM LEVEL 145.0 MMOL/L (136-145)
[2025-03-22 18:02] LABS: ESTIMATED AVERAGE GLUCOSE 117.0 MG/DL (60-110)
== END ==
LOC: M PLALAB 15:43
PROVIDERS: ATTEND Family Medicine
DX: E11.29 Type 2 diabetes mellitus with other diabetic kidney complication (principal)

== ENCOUNTER → 2025-03-29 | Outpatient (CLI) | payer MEDICARE | LOC: M WHC 12:06 | PROVIDERS: ATTEND Family Medicine | DX: M85.859 Other specified disorders of bone density and structure, unspecified thigh (principal); Z12.31 Encounter for screening mammogram for malignant neoplasm of breast ==

== ENCOUNTER → 2025-04-10 | Outpatient (CLI) | payer MEDICARE, MEDICAID | LOC: M WHC 12:02 | PROVIDERS: ATTEND Family Medicine | DX: Z12.31 Encounter for screening mammogram for malignant neoplasm of breast (principal); M85.859 Other specified disorders of bone density and structure, unspecified thigh; R92.313 Mammographic fatty tissue density, bilateral breasts ==

== ENCOUNTER → 2025-05-07 | Outpatient (CLI) | payer MEDICARE, MEDICAID | LOC: M SOG 07:38 | PROVIDERS: ATTEND Physician Assistant | DX: Z53.9 Procedure and treatment not carried out, unspecified reason (principal) ==